=== PATIENT | female | born 1975 | race Caucasian/White ===

== ENCOUNTER 2017-07-28 20:34 | Observation (INO) ==
[2017-07-28] MEDS ORDERED: Aspirin 81 MG TAB.CHEW PO ONE (20:56)
[2017-07-28] MEDS ORDERED: Ipratropium/Albuterol Neb 3 ML IH ONE ×2 (20:58→22:12)
[2017-07-28 21:29] LABS: Prothrombin Time 10.7 Seconds (9.4-12.1)
[2017-07-28 21:32] LABS: Activated Partial Thrombo Time 27.2 Seconds (26.0-36.0); Basophils % 0.3 %; Eosinophils % 0.1 %; Hematocrit 40.7 % (35.3-44.9); Hemoglobin 14.1 g/dL (11.5-15.4); Immature Granulocytes % 1.4 % (0-4); Lymphocytes # 2.6 K/mcL (0.6-4.6); Lymphocytes % 25.5 %; Mean Corpuscular HGB Conc 34.6 g/dL (31.6-35.5); Mean Corpuscular Hemoglobin 30.5 pg (28.0-33.3); Mean Corpuscular Volume 88.1 fL (83.0-100.0); Mean Platelet Volume 9.4 fL (9.4-12.4); Monocytes # 0.6 K/mcL (0.0-1.3); Monocytes % 5.4 %; Platelet Count 202 K/mcL (140-400); Red Blood Count 4.62 M/mcL (3.82-4.97); Red Cell Distribution Width 13.4 % (11.5-14.5); Segmented Neutrophils % 67.3 %
[2017-07-28 21:37] LABS: Bilirubin,Urine Negative (Negative); Blood,Urine Small (Negative); Clarity,Urine Clear (Clear); Color,Urine Yellow (Yellow); Glucose,Urine (UA) Normal (Normal); Ketones,Urine Negative (Negative); Leukocyte Esterase,Urine Negative (Negative); Nitrite,Urine Negative (Negative); Protein,Urine Negative (Neg-Trace); Specific Gravity,Urine 1.013 (1.010-1.025); Urobilinogen,Urine Normal (Normal)
[2017-07-28 21:38] LABS: Bacteria,Urine None Seen per hpf (None-Few); Hyaline Casts,Urine None Seen per lpf (None-Few); Squamous Epithelial Cell,Urine Moderate per lpf (None-Few); WBC,Urine 0-3 per hpf (0-3)
[2017-07-28 21:40] LABS: Alanine Aminotransferase 29 Units/L (0-55); Alkaline Phosphatase 89 Units/L (38-126); Aspartate Amino Transferase 23 Units/L (5-34); BUN/Creatinine Ratio 22 (6-26); Bilirubin,Direct 0.1 mg/dL (0.0-0.5); Bilirubin,Indirect 0.1 mg/dL (0.0-1.2); Bilirubin,Total 0.2 mg/dL (0.2-1.2); Blood Urea Nitrogen 19 mg/dL (7-20); Calcium 9.6 mg/dL (8.6-10.8); Carbon Dioxide 23 mEq/L (19-29); Chloride 105 mEq/L (98-109); Glucose 97 mg/dL (70-99); Lipase 66 Units/L (8-78); Osmolality,Calculated 288 (280-300); Potassium 4.6 mEq/L (3.5-4.5); Sodium 138 mEq/L (136-145); eGFR For African Americans > 60 (> 60); eGFR For Non-African Americans > 60 (> 60)
[2017-07-28] MEDS ORDERED: Nitroglycerin 0.4 MG TAB.SUBL SL PRN (21:54)
[2017-07-28] MEDS ORDERED: methylPREDNISolone 125 MG/2 ML VIAL IVP ONE (21:54)
[2017-07-28] MEDS ORDERED: 0.9 % Sodium Chloride 1,000 ML IVC ONE ×2 (21:55→22:53)
[2017-07-28] MEDS ORDERED: predniSONE 20 MG TABLET PO ONE (22:11)
--- NOTE | 2017-07-28 22:11 | Emergency Department Note ---
Disposition Clinical Impression: Bronchitis, COPD exacerbation Acute bronchitis Qualifiers: Bronchitis organism: unspecified organism Qualified Code(s): J20.9 - Acute bronchitis, unspecified Chest pain Qualifiers: Chest pain type: precordial pain Qualified Code(s): R07.2 - Precordial pain Disposition: Admitted As Inpatient Condition: Good Time of Disposition: 23:21 General Adult HPI - General Chief complaint: ED Upper Respiratory Infection Stated complaint: cough, chest pain,abdominal pain Time Seen by Provider: 07/28/17 20:42 Source: patient Mode of arrival: ambulatory Limitations: no limitations Nursing Notes Reviewed: Yes Vital Signs Reviewed: Yes - History of Present Illness HPI Narrative: 42-year-old female past medical history COPD, pancreatitis, recent diagnosis of bronchitis with treatment of doxycycline presents to the emergency department with chief complaint of worsening chest tightness over the last few days. Patient states that it started getting really bad last night and so therefore she decided to show up to the emergency department today. Patient states that she has never had sinusitis before. Pain Scale: 7 - Related Data Home Medications Medication Instructions Recorded Confirmed Albuterol Sulfate [Proair Hfa] 2 puff IH Q4H PRN 11/23/16 07/29/17 EPINEPHrine [Epipen] 0.3 mg IM ONCE PRN 11/23/16 07/29/17 LORazepam [Ativan] 0.5 mg PO BID PRN 11/23/16 07/29/17 Linaclotide [Linzess] 290 mcg PO DAILY 11/23/16 07/29/17 Budesonide/Formoterol 160/4.5 2 puff IH BIDR 07/29/17 07/29/17 [Symbicort 160/4.5] Doxycycline Hyclate [Doxycycline 100 mg PO Q12H 07/29/17 07/29/17 Hyclate] Previous Rx's Medication Instructions Recorded Promethazine [Phenergan] 25 mg PO Q6HR #14 tablet 11/27/16 Amoxicillin/Clavulanate [Augmentin] 875 mg PO BIDWM #12 tablet 07/29/17 Ipratropium/Albuterol Neb [Duoneb] 3 ml IH Q6HR 30 Days vial.neb 07/29/17 predniSONE [PredniSONE] 40 mg PO DAILY 20 Days tablet 07/29/17 Allergies Allergy/AdvReac Type Severity Reaction Status Date / Time acetaminophen [From Vicodin] Allergy Hives Verified 07/28/17 20:38 amylase [From Pancreaze] Allergy Hives Verified 07/28/17 20:38 hydrocodone [From Vicodin] Allergy Hives Verified 07/28/17 20:38 lipase [From Pancreaze] Allergy Hives Verified 07/28/17 20:38 nitrofurantoin Allergy Anaphylaxis Verified 07/28/17 20:38 [From Macrodantin] protease [From Pancreaze] Allergy Hives Verified 07/28/17 20:38 All systems ED: reviewed and negative except as stated. Review of Systems: As Per HPI Constitutional: Reports: fever, chills Cardiovascular: Reports: chest pain. Denies: palpitations Respiratory: Reports: cough, dyspnea. Denies: hemoptysis Gastrointestinal: Denies: nausea, vomiting Genitourinary: Denies: urgency Musculoskeletal: Reports: back pain. Denies: neck pain Integumentary: Denies: rash Neurological: Denies: headache Psychiatric: Reports: anxiety Past Medical History - Past Medical History Medical history: Reports: asthma, COPD, other Surgical history: Reports: cholecystectomy, orthopedic, other, CAM/BSO Psychiatric history: Reports: anxiety ABSTRACT SEARCHER history: Reports: no ABSTRACT SEARCHER history - Social History Smoking Status: Current every day smoker Smokeless Tobacco Status: No Alcohol use: Reports: none Drug use: Reports: none Physical Exam General: Thin female appearing uncomfortable, in respiratory distress, perioral cyanosis Head: autraumatic, EOMI, no conjuncitval pallor, no scleral icterus, Mouth: oral mucous membranes moist Neck: neck soft, trachea midline Chest:: Equal chest wall rise Lungs: Coarse breath sounds throughout, minimal aeration bilaterally. Heart: normal heart sounds, normal rate and rhythm, Abdomen: soft, non-tender, no rigidity, no guarding, no rebdound tenderness Lower Extremities: no pedal edema, calves non-tender Integumentary: Skin warm, dry, and intact Neuro: Alert Psych: Anxious - General General appearance: alert, in no apparent distress Course Vital Signs Temperature 98.5 F 07/28/17 20:36 Pulse Rate 78 07/28/17 20:36 Respiratory Rate 16 07/28/17 20:36 Blood Pressure 129/75 07/28/17 20:36 O2 Sat by Pulse Oximetry 96 07/28/17 20:36 Temperature 98.0 F 07/29/17 06:52 Pulse Rate 85 07/29/17 06:52 Respiratory Rate 17 07/29/17 08:15 Blood Pressure 113/76 07/29/17 06:52 O2 Sat by Pulse Oximetry 94 07/29/17 08:15 Oxygen Delivery Oxygen Delivery Nasal Cannula Medical Decision Making - [facility] Narrative Medical decision making narrative: This is a 42-year-old female with past medical history of COPD, chronic pancreatitis, complex regional pain syndrome, clot of the large intestine, and a recent diagnosis of bronchitis who presented to the emergency department with pleuritic chest pain, shortness of breath that has worsened over the last few hours. This was immediately concerned for acute coronary syndrome. Patient's initial electrocardiogram did not reveal any ST segment changes that were concerning for ischemia. Troponin was negative. Chest x-ray was negative. Patient was given 3 duo nebs and stated that her aeration was improved, however her oxygen saturation right before discharge dropped to 85% on room air. Patient was administered 3 L of oxygen via nasal cannula and her oxygen saturation improved to 93%. At this time, I did not feel comfortable sending this patient home as she does not have oxygen at home. I discussed admission with the patient and her son at bedside. They agreed with the plan. I spoke with the hospitalist on the phone and he agreed to accept this patient. Patient was hemodynamically stable and oxygen saturation was at 92% on 3 L of oxygen at time of admission to the hospital. We are giving this patient 2 grams of magnesium IV as well. Chest X-Ray 07/28/17 20:56 IMPRESSION: Negative portable chest. D/ / Arie Kumar MD / Arie Kumar MD Interpreting Provider: Arie Kumar MD Vital Signs Temperature 98.5 F 07/28/17 20:36 Pulse Rate 78 07/28/17 20:36 Respiratory Rate 16 07/28/17 20:36 Blood Pressure 129/75 07/28/17 20:36 O2 Sat by Pulse Oximetry 96 07/28/17 20:36 Temperature 98.5 F 10/21/17 20:36 Pulse Rate 78 07/28/17 20:36 Respiratory Rate 16 07/28/17 20:36 Blood Pressure 129/75 07/28/17 20:36 O2 Sat by Pulse Oximetry 96 07/28/17 20:36 Oxygen Delivery Oxygen Delivery Room Air - Medical Records Medical records reviewed: Yes I reviewed the patient's medical records. - Lab Data Lab results reviewed: Yes I reviewed the patient's lab results. Result diagrams: 07/29/17 02:50 07/29/17 02:50 Lab Results 07/28/17 07/28/17 07/28/17 Range/Units 21:17 21: 21:17 WBC 10.4 (4.3-11.1) K/mcL RBC 4.62 (3.82-4.97) M/mcL Hgb 14.1 (11.5-15.4) g/dL Hct 40.7 (35.3-44.9) % MCV 88.1 (83.0-100.0) fL MCH 30.5 (28.0-33.3) pg MCHC 34.6 (31.6-35.5) g/dL RDW 13.4 (11.5-14.5) % Plt Count 202 (140-400) K/mcL MPV 9.4 (9.4-12.4) fL Immature Gran % 1.4 (0-4) % Seg Neutrophils % 67.3 % Lymphocytes % 25.5 % Monocytes % 5.4 % Eosinophils % 0.1 % Basophils % 0.3 % Neutrophils # 7.0 (1.6-8.9) K/mcL Lymphocytes # 2.6 (0.6-4.6) K/mcL Monocytes # 0.6 (0.0-1.3) K/mcL Eosinophils # 0.0 (0.0-0.6) K/mcL Basophils # 0.0 (0.0-0.2) K/mcL PT (9.4-12.1) Seconds INR APTT (26.0-36.0) Seconds D-Dimer (0-500) ng/mLFEU Sodium 138 (136-145) mEq/L Potassium 4.6 H (3.5-4.5) mEq/L Chloride 105 (98-109) mEq/L Carbon Dioxide 23 (19-29) mEq/L BUN 19 (7-20) mg/dL Creatinine 0.86 (0.57-1.11) mg/dL Est GFR ( Amer) > 60 (> 60) Est GFR (Non-Af Amer) > 60 (> 60) BUN/Creatinine Ratio 22 (6-26) Glucose 97 (70-99) mg/dL Calculated Osmolality 288 (280-300) Calcium 9.6 (8.6-10.8) mg/dL Total Bilirubin 0.2 (0.2-1.2) mg/dL Direct Bilirubin 0.1 (0.0-0.5) mg/dL Indirect Bilirubin 0.1 (0.0-1.2) mg/dL AST 23 (5-34) Units/L ALT 29 (0-55) Units/L Alkaline Phosphatase 89 (38-126) Units/L Troponin I 0.01 (0-0.03) ng/mL Serum Total Protein 8.0 (6.0-8.3) g/dL Albumin 4.0 (3.5-5.0) g/dL Globulin 4.0 H (2.4-3.5) g/dL Albumin/Globulin Ratio 1.0 L (1.1-2.2) Lipase 66 (8-78) Units/L Urine Color (Yellow) Urine Clarity (Clear) Urine pH (5.0-8.0) pH Units Ur Specific [place] (1.010-1.025) Urine Protein (Neg-Trace) mg/dL Urine Glucose (UA) (Normal) mg/dL Urine Ketones (Negative) mg/dL Urine Blood (Negative) Urine Nitrite (Negative) Urine Bilirubin (Negative) Urine Urobilinogen (Normal) mg/dL Ur Leukocyte Esterase (Negative) Urine Microscopic RBC (0-3) per hpf Urine Microscopic WBC (0-3) per hpf Ur Squamous Epith Cells (None-Few) per lpf Urine Bacteria (None-Few) per hpf Hyaline Casts (None-Few) per lpf Ur Culture Indicated? (NO) Urine Test (Negative) 07/28/17 07/28/17 07/28/17 Range/Units 21: 21: 21:26 WBC (4.3-11.1) K/mcL RBC (3.82-4.97) M/mcL Hgb (11.5-15.4) g/dL Hct (35.3-44.9) % MCV (83.0-100.0) fL MCH (28.0-33.3) pg MCHC (31.6-35.5) g/dL RDW (11.5-14.5) % Plt Count (140-400) K/mcL MPV (9.4-12.4) fL Immature Gran % (0-4) % Seg Neutrophils % % Lymphocytes % % Monocytes % % Eosinophils % % Basophils % % Neutrophils # (1.6-8.9) K/mcL Lymphocytes # (0.6-4.6) K/mcL Monocytes # (0.0-1.3) K/mcL Eosinophils # (0.0-0.6) K/mcL Basophils # (0.0-0.2) K/mcL PT 10.7 (9.4-12.1) Seconds INR 1.0 APTT 27.2 (26.0-36.0) Seconds D-Dimer < 215 (0-500) ng/mLFEU Sodium (136-145) mEq/L Potassium (3.5-4.5) mEq/L Chloride (98-109) mEq/L Carbon Dioxide (19-29) mEq/L BUN (7-20) mg/dL Creatinine (0.57-1.11) mg/dL Est GFR ( Amer) (> 60) Est GFR (Non-Af Amer) (> 60) BUN/Creatinine Ratio (6-26) Glucose (70-99) mg/dL Calculated Osmolality (280-300) Calcium (8.6-10.8) mg/dL Total Bilirubin (0.2-1.2) mg/dL Direct Bilirubin (0.0-0.5) mg/dL Indirect Bilirubin (0.0-1.2) mg/dL AST (5-34) Units/L ALT (0-55) Units/L Alkaline Phosphatase (38-126) Units/L Troponin I (0-0.03) ng/mL Serum Total Protein (6.0-8.3) g/dL Albumin (3.5-5.0) g/dL Globulin (2.4-3.5) g/dL Albumin/Globulin Ratio (1.1-2.2) Lipase (8-78) Units/L Urine Color Yellow (Yellow) Urine Clarity Clear (Clear) Urine pH 7.0 (5.0-8.0) pH Units Ur Specific [place] 1.013 (1.010-1.025) Urine Protein Negative (Neg-Trace) mg/dL Urine Glucose (UA) Normal (Normal) mg/dL Urine Ketones Negative (Negative) mg/dL Urine Blood Small H (Negative) Urine Nitrite Negative (Negative) Urine Bilirubin Negative (Negative) Urine Urobilinogen Normal (Normal) mg/dL Ur Leukocyte Esterase Negative (Negative) Urine Microscopic RBC 5-15 H (0-3) per hpf Urine Microscopic WBC 0-3 (0-3) per hpf Ur Squamous Epith Cells Moderate H (None-Few) per lpf Urine Bacteria None Seen (None-Few) per hpf Hyaline Casts None Seen (None-Few) per lpf Ur Culture Indicated? NO (NO) Urine Test (Negative) 07/28/17 Range/Units 21:26 WBC (4.3-11.1) K/mcL RBC (3.82-4.97) M/mcL Hgb (11.5-15.4) g/dL Hct (35.3-44.9) % MCV (83.0-100.0) fL MCH (28.0-33.3) pg MCHC (31.6-35.5) g/dL RDW (11.5-14.5) % Plt Count (140-400) K/mcL MPV (9.4-12.4) fL Immature Gran % (0-4) % Seg Neutrophils % % Lymphocytes % % Monocytes % % Eosinophils % % Basophils % % Neutrophils # (1.6-8.9) K/mcL Lymphocytes # (0.6-4.6) K/mcL Monocytes # (0.0-1.3) K/mcL Eosinophils # (0.0-0.6) K/mcL Basophils # (0.0-0.2) K/mcL PT (9.4-12.1) Seconds INR APTT (26.0-36.0) Seconds D-Dimer (0-500) ng/mLFEU Sodium (136-145) mEq/L Potassium (3.5-4.5) mEq/L Chloride (98-109) mEq/L Carbon Dioxide (19-29) mEq/L BUN (7-20) mg/dL Creatinine (0.57-1.11) mg/dL Est GFR ( Amer) (> 60) Est GFR (Non-Af Amer) (> 60) BUN/Creatinine Ratio (6-26) Glucose (70-99) mg/dL Calculated Osmolality (280-300) Calcium (8.6-10.8) mg/dL Total Bilirubin (0.2-1.2) mg/dL Direct Bilirubin (0.0-0.5) mg/dL Indirect Bilirubin (0.0-1.2) mg/dL AST (5-34) Units/L ALT (0-55) Units/L Alkaline Phosphatase (38-126) Units/L Troponin I (0-0.03) ng/mL Serum Total Protein (6.0-8.3) g/dL Albumin (3.5-5.0) g/dL Globulin (2.4-3.5) g/dL Albumin/Globulin Ratio (1.1-2.2) Lipase (8-78) Units/L Urine Color (Yellow) Urine Clarity (Clear) Urine pH (5.0-8.0) pH Units Ur Specific [place] (1.010-1.025) Urine Protein (Neg-Trace) mg/dL Urine Glucose (UA) (Normal) mg/dL Urine Ketones (Negative) mg/dL Urine Blood (Negative) Urine Nitrite (Negative) Urine Bilirubin (Negative) Urine Urobilinogen (Normal) mg/dL Ur Leukocyte Esterase (Negative) Urine Microscopic RBC (0-3) per hpf Urine Microscopic WBC (0-3) per hpf Ur Squamous Epith Cells (None-Few) per lpf Urine Bacteria (None-Few) per hpf Hyaline Casts (None-Few) per lpf Ur Culture Indicated? (NO) Urine Test Negative (Negative) - Radiology Data Radiology results reviewed: Yes I reviewed the patient's radiology results. - EKG Data EKG #1 EKG attestation: Yes I reviewed and interpreted this EKG. EKG results narrative: 20:45 Ventricular rate 77 bpm, VT interval 187 ms, QRS duration 92 ms, QT 387 ms, QTC 418 segs, no waxes. Sinus rhythm with a ventricular rate of 77 bpm. There is no evidence of ischemic EKG changes Attestation Statement - Attestation Attestation: I, Bhanu Nicholson, examined this patient and my medical decision-making was reviewed with the BASIN OPERATOR/PA/Advanced Practice Nurse/Resident Physician. I agree with the documented findings, disposition and treatment plan as described except to the extent set forth below. 42-year-old female presents to emergency Department with concerns of increasing dyspnea and anxiety over the past few days. Patient states she was evaluated by her primary care provider last week, described having similar symptoms, was prescribed steroids and doxycycline. Patient is still on the doxycycline however she finished the steroids without significant improvement of her symptoms. During the course of our evaluation patient became hypoxic in the emergency department. Patient is low risk by well's criteria and has a negative d-dimer. Patient is very anxious about her chest tightness. She had a negative initial troponin and EKG does not show evidence of STEMI. Patient will be admitted to the hospital for further care and evaluation.
[2017-07-28] MEDS ORDERED: Levofloxacin 750 MG/150 ML 750 MG/150 ML BAG IVPB ONE (22:56)
[2017-07-29] MEDS ORDERED: Ondansetron 4 MG/2 ML VIAL IVP PRN (00:32)
[2017-07-29] MEDS ORDERED: Naloxone 0.4 MG/ML INJ IVP PRN (00:32)
[2017-07-29] MEDS ORDERED: Ipratropium/Albuterol Neb 3 ML IH PRN (00:39)
--- NOTE | 2017-07-29 00:48 | Internal Med History&Physical ---
Date of Encounter: 07/29/17 Time of Encounter: 00:00 Assessment and Plan (1) COPD exacerbation Current visit: Yes Status: Acute Patient has history of COPD. Increased shortness of breath caused by bronchitis. Improved after treatment with steroid and bronchodilator later. - Place patient on Levaquin, prednisone, and DuoNeb treatment - Patient has no wheezing now but still need oxygen. - May need home oxygen evaluation upon discharge (2) Chronic pancreatitis Current visit: Yes Status: Acute Lipase is not high. Condition is chronic. Patient is following GI as outpatient Qualifiers: Qualified Code(s): K86.1 - Other chronic pancreatitis (3) DVT prophylaxis Current visit: Yes Status: Acute Heparin subcutaneously (4) Chest pain Current visit: Yes Status: Acute Patient complaint of chest heaviness and mild pain, probably due to bronchitis. However, need to rule out ACS. Patient has negative d-dimer. - 2 sets of troponin already negative. Will check the 3rd troponin in a.m. - Continue cardiac monitoring. - Check echo in a.m. Qualifiers: Chest pain type: precordial pain Qualified Code(s): R07.2 - Precordial pain (5) Tobacco abuse Current visit: Yes Status: Acute Bedside smoking cessation education. Place patient on nicotine patch Internal Medicine - H&P: HPI Chief complaint: Shortness of breath Admitted From: Home Plans for Post Hospital Care: Home History of present illness: Ms. Dougherty is a 42 year old female with a history of COPD, chronic pancreatitis , presented to ER for shortness of breath and chest heaviness. Patient said she was sick since 8 days ago, was treated as bronchitis. Since 2 days ago, patient did complain of chest heaviness/mild pain, and shortness of breath. Patient said chest heaviness and pain located on the mid chest and radiated to back, worse when she lay down. Patient denies a fever. She has mild nausea but no vomiting. Patient has a chronic abdominal pain which is due to her chronic pancreatitis. She denies diarrhea or urination problems. Patient was treated with steroids and nebulizer in emergency room, her symptoms has improved after treatment. However, patient's oxygen saturation is still low at 80s in room air, and she has no home oxygen. She was admitted as COPD exacerbation. Past Med Surg Social Fam HX - Past Medical History Medical history: asthma, COPD, other Psychiatric history: anxiety - Past Surgical History Surgical History: cholecystectomy, hysterectomy, orthopedic, other, CAM/BSO - Social History Smoking Status: Current every day smoker Smokeless Tobacco Status: No Alcohol use: none Drug use: none - Family History Mother Living Status: Still Living Hx Family Cardiac Disorders: Yes (open heart, HTN) Hx Family Endocrine Disorder: Yes (DM) Maternal Grandmother Hx Family Cardiac Disorders: Yes (breat, colon, stomach) Internal Medicine - H&P: Meds Albuterol Sulfate [Proair Hfa] 2 puff IH Q4H PRN 11/23/16 [History] EPINEPHrine [Epipen] 0.3 mg IM ONCE PRN 11/23/16 [History] LORazepam [Ativan] 0.5 mg PO BID PRN 11/23/16 [History] Linaclotide [Linzess] 290 mcg PO DAILY 11/23/16 [History] Oxycodone HCl [Oxaydo] 5 mg PO Q6H PRN 11/23/16 [History] OxyCODONE Immed Rel [Roxicodone 5 MG] 5 mg PO Q6HR PRN #10 tablet 11/27/16 [Rx] Promethazine [Phenergan] 25 mg PO Q6HR #14 tablet 11/27/16 [Rx] 3 Allergy/AdvReac Type Severity Reaction Status Date / Time acetaminophen [From Vicodin] Allergy Hives Verified 07/28/17 20:38 amylase [From Pancreaze] Allergy Hives Verified 07/28/17 20:38 hydrocodone [From Vicodin] Allergy Hives Verified 07/28/17 20:38 lipase [From Pancreaze] Allergy Hives Verified 07/28/17 20:38 nitrofurantoin Allergy Anaphylaxis Verified 07/28/17 20:38 [From Macrodantin] protease [From Pancreaze] Allergy Hives Verified 07/28/17 20:38 All Systems PM: A 10-system review of systems was performed and is negative for pertinent findings except as documented above in the HPI. - Constitutional Vitals: Temp Pulse Resp BP Pulse Ox 98.0 F 83 16 122/74 98 07/29/17 00:04 07/29/17 00:04 07/29/17 00:04 07/29/17 00:04 07/29/17 00:04 General appearance: Present: A&O X 3, no acute distress, answers questions appropriately - Head Head exam: Present: atraumatic, normocephalic - Eye Eye exam: Present: PERRL, conjuntiva pink, sclera anicteric Pupils: Present: PERRL - Neck Neck exam general surgery: Present: supple, trachea midline. Absent: lymphadenopathy - Respiratory Respiratory exam: Present: CTAB. Absent: accessory muscle use, rales, rhonchi, wheezes - Cardiovascular Cardiovascular exam: Present: RRR, +S1, +S2. Absent: diastolic murmur, gallop, rubs, systolic murmur - GI/Abdominal GI/Abdominal exam: Present: normal bowel sounds, soft, tenderness (Tenderness on LUQ, without rebound or guarding), no peritoneal signs. Absent: distended - Extremities Exam Extremities exam: Present: warm, radial pulses palpable and symmetrical. Absent : calf tenderness, cyanotic, pedal edema - Neurological Exam Neurological exam: Present: CN II-XII intact, oriented X3, no focal deficits. Absent: pronater drift, facial droop, speech deficit - Skin Skin exam: Present: dry, intact Internal Med - H&P Results - Labs CBC & Chem 7: 07/28/17 21:17 07/28/17 21:17 Labs: Cardiac Enzymes 07/28/17 Range/Units 23:15 Troponin I 0.00 (0-0.03) ng/mL - EKG Data -: EKG Interpreted by Myself EKG shows normal: sinus rhythm Rate: tachycardia
[2017-07-29 04:02] LABS: Basophils % 0.3 %; Hematocrit 38.1 % (35.3-44.9); Hemoglobin 12.6 g/dL (11.5-15.4); Lymphocytes # 1.8 K/mcL (0.6-4.6); Lymphocytes % 17.8 %; Mean Corpuscular HGB Conc 33.1 g/dL (31.6-35.5); Mean Corpuscular Volume 90.7 fL (83.0-100.0); Mean Platelet Volume 10.4 fL (9.4-12.4); Monocytes # 0.3 K/mcL (0.0-1.3); Monocytes % 2.8 %; Neutrophils # 7.8 K/mcL (1.6-8.9); Platelet Count 147 K/mcL (140-400); Red Cell Distribution Width 13.4 % (11.5-14.5); Segmented Neutrophils % 78.1 %
[2017-07-29 04:19] LABS: BUN/Creatinine Ratio 20 (6-26); Blood Urea Nitrogen 15 mg/dL (7-20); Calcium 8.8 mg/dL (8.6-10.8); Carbon Dioxide 21 mEq/L (19-29); Chloride 108 mEq/L (98-109); Glucose 108 mg/dL (70-99); Magnesium 1.9 mg/dL (1.6-2.6); Osmolality,Calculated 293 (280-300); Potassium 3.9 mEq/L (3.5-4.5); Sodium 141 mEq/L (136-145); eGFR For African Americans > 60 (> 60); eGFR For Non-African Americans > 60 (> 60)
[2017-07-29] MEDS: Ipratropium/Albuterol Neb 3 ML IH SCH ×3 (05:16→16:10)
[2017-07-29] MEDS ORDERED: *HR* Heparin 5,000 UNIT/ML VIAL SQ SCH (06:00)
[2017-07-29 06:56] VITALS: BP 113/76
[2017-07-29] MEDS ORDERED: predniSONE 20 MG TABLET PO SCH (09:00)
--- NOTE | 2017-07-29 11:32 | Discharge Summary ---
Date of Encounter: 07/29/17 Time of Encounter: 11:26 - Discharge Diagnosis (1) Acute bronchitis Priority: Primary Status: Acute Comments: Acute hypoxic respiratory failure secondary to acute COPD exacerbation due to acute bacterial bronchitis Qualifiers: Bronchitis organism: unspecified organism Qualified Code(s): J20.9 - Acute bronchitis, unspecified (2) COPD exacerbation Priority: Primary Status: Acute (3) Chronic pancreatitis Priority: Secondary Status: Acute Qualifiers: Qualified Code(s): K86.1 - Other chronic pancreatitis (4) Tobacco abuse Priority: Secondary Status: Acute (5) Chest pain Priority: Secondary Status: Acute Comments: Activity related to bronchitis Qualifiers: Chest pain type: precordial pain Qualified Code(s): R07.2 - Precordial pain - Discharge Medications Prescriptions: Ipratropium/Albuterol Neb [Duoneb] 3 ml IH Q6HR 30 Days vial.neb Amoxicillin/Clavulanate [Augmentin] 875 mg PO BIDWM #12 tablet predniSONE [PredniSONE] 40 mg PO DAILY 20 Days tablet Home Medications: Albuterol Sulfate [Proair Hfa] 2 puff IH Q4H PRN 11/23/16 [History] EPINEPHrine [Epipen] 0.3 mg IM ONCE PRN 11/23/16 [History] LORazepam [Ativan] 0.5 mg PO BID PRN 11/23/16 [History] Linaclotide [Linzess] 290 mcg PO DAILY 11/23/16 [History] Oxycodone HCl [Oxaydo] 5 mg PO Q6H PRN 11/23/16 [History] OxyCODONE Immed Rel [Roxicodone 5 MG] 5 mg PO Q6HR PRN #10 tablet 11/27/16 [Rx] Promethazine [Phenergan] 25 mg PO Q6HR #14 tablet 11/27/16 [Rx] Amoxicillin/Clavulanate [Augmentin] 875 mg PO BIDWM #12 tablet 07/29/17 [Rx] Ipratropium/Albuterol Neb [Duoneb] 3 ml IH Q6HR 30 Days vial.neb 07/29/17 [Rx] predniSONE [PredniSONE] 40 mg PO DAILY 20 Days tablet 07/29/17 [Rx] Allergies/Adverse Reactions: 3 Allergy/AdvReac Type Severity Reaction Status Date / Time acetaminophen [From Vicodin] Allergy Hives Verified 07/28/17 20:38 amylase [From Pancreaze] Allergy Hives Verified 07/28/17 20:38 hydrocodone [From Vicodin] Allergy Hives Verified 07/28/17 20:38 lipase [From Pancreaze] Allergy Hives Verified 07/28/17 20:38 nitrofurantoin Allergy Anaphylaxis Verified 07/28/17 20:38 [From Macrodantin] protease [From Pancreaze] Allergy Hives Verified 07/28/17 20:38 Procedures/tests Complete & Pending: Procedures Performed prior 72 hours Category Date Time Status ECG 12 lead ECG [ECG] Routine Y 07/28/17 20:44 Completed EV echocardiogram Routine Y 07/29/17 00:39 Completed Date of admission: 07/28/17 23:12 Primary care physician: Peggy Richardson CNP - Patient Status Disposition: Home, Self-Care Condition: Good Overall status at discharge: patient is back to baseline - Discharge Instructions Follow Up With: Peggy Richardson CNP [Primary Care Provider] - Additional Instructions: Follow-up with primary care physician within the next 7 days. Complete redness and taper. Complete 6 more days of Augmentin. Follow-up with the pulmonary service within the next 4-6 weeks for pulmonary function tests. Quit smoking - Diet and Activity Activity: increase activity as tolerated Diet: low fat, low cholesterol Hospital course: Ms. Dougherty is a 42 year old female with a history of COPD not oxygen dependent, chronic pancreatitis, tobacco use, asthma, anxiety, presented to ER for shortness of breath and chest heaviness. Patient said she was sick since 8 days , was treated as bronchitis. Since 2 days prior to admission, patient did complain of chest heaviness/mild pain, and shortness of breath. She had mild nausea but no vomiting. Patient has a chronic abdominal pain which is due to her chronic pancreatitis. She denied diarrhea or urination problems. Patient was treated with steroids and nebulizer in emergency room, her symptoms has improved after treatment. However, patient's oxygen saturation is still low at 80s in room air, and she has no home oxygen. She was admitted as COPD exacerbation. Mentioned that all of her family has been dealing with bronchitis at home. Chest x-ray did not show any acute coronary pulmonary disease. She is not hypoxic anymore. Was given Levaquin and prednisone. He is stable to be discharged on the moment. Time spent discussing smoking cessation with patient: 3 to 10 minutes - Time Spent with Patient Total time spent providing and/or coordinating discharge services: Greater than 30 minutes (40 min) - Constitutional Vitals: Temp Pulse Resp BP Pulse Ox 98.0 F 85 17 113/76 94 07/29/17 06:52 07/29/17 06:52 07/29/17 08:15 07/29/17 06:52 07/29/17 08:15 General appearance: Present: A&O X 3, no acute distress, answers questions appropriately - Head Head exam: Present: atraumatic, normocephalic - Eye Eye exam: Present: PERRL, conjuntiva pink, sclera anicteric Pupils: Present: PERRL - Neck Neck exam general surgery: Present: supple, trachea midline. Absent: lymphadenopathy - Respiratory Respiratory exam: Present: decreased breath sounds, CTAB. Absent: accessory muscle use, rales, rhonchi, wheezes - Cardiovascular Cardiovascular exam: Present: RRR, +S1, +S2. Absent: diastolic murmur, gallop, rubs, systolic murmur - GI/Abdominal GI/Abdominal exam: Present: normal bowel sounds, soft, no peritoneal signs. Absent: distended, tenderness - Extremities Exam Extremities exam: Present: warm, radial pulses palpable and symmetrical. Absent : calf tenderness, cyanotic, pedal edema - Neurological Exam Neurological exam: Present: CN II-XII intact, oriented X3, no focal deficits. Absent: pronater drift, facial droop, speech deficit - Skin Skin exam: Present: dry, intact
[2017-07-29] MEDS ORDERED: Levofloxacin 750 MG/150 ML 750 MG/150 ML BAG IVPB SCH (23:00)
--- NOTE | 2017-07-30 06:43 | Electrocardiograph Report ---
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
--- NOTE | 2017-07-30 06:43 | Electrocardiograph Report ---
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
== END 2017-07-29 16:00 | disposition home or self-care (01) ==
LOC: EMEROO 20:34 → 3BNU 20:34 → SUATTDRO 23:12 → 3BNU 23:38
PROVIDERS: ADMIT Internal Medicine; ATTEND Internal Medicine

== ENCOUNTER 2017-09-17 09:18 | Inpatient (IN) ==
[2017-09-17] MEDS ORDERED: Ringers Solution, Lactated 1,000 ML IVC ONE (09:37)
[2017-09-17] MEDS ORDERED: *HR* Promethazine 25 MG/ML VIAL IVP ONE (09:37)
[2017-09-17] MEDS ORDERED: *HR* Morphine 2 MG/ML SYRINGE IVP ONE (09:37)
[2017-09-17 09:48] LABS: Bilirubin,Urine Negative (Negative); Blood,Urine Small (Negative); Clarity,Urine Clear (Clear); Color,Urine Dark Yellow (Yellow); Glucose,Urine (UA) Normal (Normal); Ketones,Urine Negative (Negative); Leukocyte Esterase,Urine Negative (Negative); Nitrite,Urine Negative (Negative); PH,Urine 6.5 pH Units (5.0-8.0); Protein,Urine Negative (Neg-Trace); Specific Gravity,Urine 1.021 (1.010-1.025); Urobilinogen,Urine Normal (Normal)
--- NOTE | 2017-09-17 09:48 | Emergency Department Note ---
Disposition Clinical Impression: Epigastric abdominal pain Disposition: Admitted As Inpatient Condition: Good Forms: ED Satisfaction Letter, Work/School Release Time of Disposition: 12:25 General Adult HPI - General Chief complaint: ED Abdominal Pain Stated complaint: abd pain Time Seen by Provider: 09/17/17 09:23 Source: patient Mode of arrival: ambulatory Limitations: no limitations Nursing Notes Reviewed: Yes Vital Signs Reviewed: Yes - History of Present Illness HPI Narrative: 42-year-old female presented to the emergency department complaining of epigastric pain. Patient has a history of chronic pancreatitis and COPD. On Sunday she saw her sole leveler Dr. Lin who sent her to the emergency department with concern for acute pancreatitis. When she was here she was treated for nausea and pain control. She was given non-disassociative dose ketamine. She stated she was feeling better and was discharged home. She states since Sunday morning she has been having increasing epigastric pain along with abdominal distention. She has been unable to hold any food or liquids down. She has been trying morphine and Phenergan at home with little relief. She is coming back in feeling that she is dehydrated and having more severe pain. She denies any fevers, chest pain or changes in her shortness of breath. She denies any urinary symptoms. Pain Scale: 9 - Related Data Home Medications Medication Instructions Recorded Confirmed Albuterol Sulfate [Proair Hfa] 2 puff IH Q4H PRN 11/23/16 09/17/17 EPINEPHrine [Epipen] 0.3 mg IM ONCE PRN 11/23/16 09/17/17 LORazepam [Ativan] 0.5 mg PO BID PRN 11/23/16 09/17/17 Linaclotide [Linzess] 290 mcg PO DAILY 11/23/16 09/17/17 Previous Rx's Medication Instructions Recorded Ipratropium/Albuterol Neb [Duoneb] 3 ml IH Q6HR 30 Days vial.neb 07/29/17 Morphine Immed Rel [Morphine 15 mg PO Q4HR PRN #15 tab 09/13/17 Sulfate] Allergies Allergy/AdvReac Type Severity Reaction Status Date / Time acetaminophen [From Vicodin] Allergy Hives Verified 09/13/17 16:08 amylase [From Pancreaze] Allergy Hives Verified 09/13/17 16:08 hydrocodone [From Vicodin] Allergy Hives Verified 09/13/17 16:08 lipase [From Pancreaze] Allergy Hives Verified 09/13/17 16:08 nitrofurantoin Allergy Anaphylaxis Verified 09/13/17 16:08 [From Macrodantin] protease [From Pancreaze] Allergy Hives Verified 09/13/17 16:08 All systems ED: reviewed and negative except as stated. Constitutional: Denies: fever, chills Eyes: Reports: as per HPI ENT ED: Reports: as per HPI Cardiovascular: Denies: chest pain, palpitations, dyspnea on exertion Respiratory: Denies: cough, wheezes Gastrointestinal: Reports: abdominal pain, nausea, vomiting. Denies: hematemesis, melena, hematochezia Genitourinary: Reports: as per HPI Musculoskeletal: Reports: as per HPI Integumentary: Denies: rash, abrasion Neurological: Reports: as per HPI Psychiatric: Reports: as per HPI Endocrine: Reports: as per HPI Hematological/Lymphatic: Reports: as per HPI Allergic/Immunologic: Reports: as per HPI Past Medical History - Past Medical History Attestation: Yes The following information was validated with the patient. Medical history: Reports: asthma, COPD, other Surgical history: Reports: cholecystectomy, orthopedic, other, CAM/BSO Psychiatric history: Reports: anxiety LEAD RIDER history: Reports: no LEAD RIDER history - Social History Smoking Status: Current every day smoker Smokeless Tobacco Status: No Alcohol use: Reports: none Drug use: Reports: none Physical Exam - General Limitations: no limitations General appearance: alert, in no apparent distress - Head Head exam: atraumatic, normocephalic, normal inspection - Eye Eye exam: Present: normal appearance. Absent: scleral icterus, conjunctival injection - ENT ENT exam: mucous membranes dry - Chest Chest inspection: Present: normal inspection, symmetric chest wall rise. Absent : tenderness, rash - Respiratory Respiratory exam: Present: normal lung sounds bilaterally. Absent: respiratory distress, wheezes - Cardiovascular Cardiovascular exam: Present: normal rhythm, tachycardia, normal heart sounds - Abdominal Exam Abdominal exam: Present: soft, tenderness, distention, normal bowel sounds. Absent: guarding, rebound, rigidity, organomegaly, Miguel's sign, Rovsing's sign , tenderness at McBurney's Point Abdominal tenderness: Present: epigastrium, moderate - Extremities Exam Extremities exam: Present: normal inspection, full ROM - Back Exam Back exam: Present: normal inspection. Absent: CVA tenderness (R), CVA tenderness (L) - Neurological Exam Neurological exam: Present: alert, oriented X3 - Psychiatric Psychiatric exam: Present: normal affect, normal mood - Skin Skin exam: Present: warm, intact Course Course Narrative: 42-year-old female presenting to the emergency department complaining of epigastric pain. Patient was seen on Sunday with concern for aggravation of her chronic pancreatitis. Patient has failed outpatient management. We will provide the patient when nausea and pain control this time. We will obtain basic lab work including CBC, BMP and lipase. We will provide her with fluid repletion with lactated Ringer's. Patient is alert and oriented 3 in the room at this time. She is tachycardic with a heart rate of 110. All other vitals within normal limits. Disposition was likely will be admission. Patient agrees to this plan. - Reevaluation(s) Reevaluation #1: After multiple failed attempts at a peripheral IV in midline was placed. Patient has received subcutaneous morphine for pain control. All lab work resulted was within normal limits. We will admit the patient at this time for pain control. She is alert and oriented 3 in the room stable vital signs at this time. She agrees with this plan. The hospitalist Dr. Burgos agrees to accept the patient at this time. Time: 12:24 Vital Signs Temperature 98.4 F 09/17/17 09:19 Pulse Rate 110 09/17/17 09:19 Respiratory Rate 18 09/17/17 09:19 Blood Pressure 123/80 09/17/17 09:19 O2 Sat by Pulse Oximetry 96 09/17/17 09:19 Temperature 98.4 F 09/17/17 09:19 Pulse Rate 110 09/17/17 09:19 Respiratory Rate 18 09/17/17 09:19 Blood Pressure 123/80 09/17/17 09:19 O2 Sat by Pulse Oximetry 96 09/17/17 09:19 Oxygen Delivery Oxygen Delivery Room Air Medical Decision Making - Lab Data Result diagrams: 09/17/17 10:28 09/17/17 11:11 Lab Results 09/17/17 09/17/17 09/17/17 Range/Units 09:38 10:28 10:28 WBC 9.3 (4.3-11.1) K/mcL RBC 4.47 (3.82-4.97) M/mcL Hgb 13.6 (11.5-15.4) g/dL Hct 39.7 (35.3-44.9) % MCV 88.8 (83.0-100.0) fL MCH 30.4 (28.0-33.3) pg MCHC 34.3 (31.6-35.5) g/dL RDW 13.2 (11.5-14.5) % Plt Count 182 (140-400) K/mcL MPV 10.1 (9.4-12.4) fL Seg Neutrophils % 70.0 % Lymphocytes % 26.0 % Monocytes % 4.0 % Neutrophils # 6.5 (1.6-8.9) K/mcL Lymphocytes # 2.4 (0.6-4.6) K/mcL Monocytes # 0.4 (0.0-1.3) K/mcL Reactive Lymphocytes (Not Present) Platelet Estimate Normal (Normal) Large Platelets (Not Present) Sodium (136-145) mEq/L Potassium (3.5-4.5) mEq/L Chloride (98-109) mEq/L Carbon Dioxide (19-29) mEq/L BUN (7-20) mg/dL Creatinine (0.57-1.11) mg/dL Est GFR ( Amer) (> 60) Est GFR (Non-Af Amer) (> 60) BUN/Creatinine Ratio (6-26) Glucose (70-99) mg/dL Calculated Osmolality (280-300) Calcium (8.6-10.8) mg/dL Lipase (8-78) Units/L Urine Color Dark Yellow (Yellow) Urine Clarity Clear (Clear) Urine pH 6.5 (5.0-8.0) pH Units Ur Specific [place] 1.021 (1.010-1.025) Urine Protein Negative (Neg-Trace) mg/dL Urine Glucose (UA) Normal (Normal) mg/dL Urine Ketones Negative (Negative) mg/dL Urine Blood Small H (Negative) Urine Nitrite Negative (Negative) Urine Bilirubin Negative (Negative) Urine Urobilinogen Normal (Normal) mg/dL Ur Leukocyte Esterase Negative (Negative) Urine Microscopic RBC 0-3 (0-3) per hpf Urine Microscopic WBC 0-3 (0-3) per hpf Ur Squamous Epith Cells Many H (None-Few) per lpf Urine Bacteria Few (None-Few) per hpf Hyaline Casts None Seen (None-Few) per lpf Granular Casts Few H (None Seen) per lpf Ur Culture Indicated? NO (NO) Specimen Rejected Hemolyzed 09/17/17 Range/Units 11:11 WBC (4.3-11.1) K/mcL RBC (3.82-4.97) M/mcL Hgb (11.5-15.4) g/dL Hct (35.3-44.9) % MCV (83.0-100.0) fL MCH (28.0-33.3) pg MCHC (31.6-35.5) g/dL RDW (11.5-14.5) % Plt Count (140-400) K/mcL MPV (9.4-12.4) fL Seg Neutrophils % % Lymphocytes % % Monocytes % % Neutrophils # (1.6-8.9) K/mcL Lymphocytes # (0.6-4.6) K/mcL Monocytes # (0.0-1.3) K/mcL Reactive Lymphocytes (Not Present) Platelet Estimate (Normal) Large Platelets (Not Present) Sodium 136 (136-145) mEq/L Potassium 4.2 (3.5-4.5) mEq/L Chloride 102 (98-109) mEq/L Carbon Dioxide 25 (19-29) mEq/L BUN 9 (7-20) mg/dL Creatinine 0.59 (0.57-1.11) mg/dL Est GFR ( Amer) > 60 (> 60) Est GFR (Non-Af Amer) > 60 (> 60) BUN/Creatinine Ratio 15 (6-26) Glucose 96 (70-99) mg/dL Calculated Osmolality 281 (280-300) Calcium 9.2 (8.6-10.8) mg/dL Lipase 62 (8-78) Units/L Urine Color (Yellow) Urine Clarity (Clear) Urine pH (5.0-8.0) pH Units Ur Specific [place] (1.010-1.025) Urine Protein (Neg-Trace) mg/dL Urine Glucose (UA) (Normal) mg/dL Urine Ketones (Negative) mg/dL Urine Blood (Negative) Urine Nitrite (Negative) Urine Bilirubin (Negative) Urine Urobilinogen (Normal) mg/dL Ur Leukocyte Esterase (Negative) Urine Microscopic RBC (0-3) per hpf Urine Microscopic WBC (0-3) per hpf Ur Squamous Epith Cells (None-Few) per lpf Urine Bacteria (None-Few) per hpf Hyaline Casts (None-Few) per lpf Granular Casts (None Seen) per lpf Ur Culture Indicated? (NO) Specimen Rejected
[2017-09-17 09:51] LABS: Hyaline Casts,Urine None Seen per lpf (None-Few); RBC,Urine 0-3 per hpf (0-3); Squamous Epithelial Cell,Urine Many per lpf (None-Few); WBC,Urine 0-3 per hpf (0-3)
--- NOTE | 2017-09-17 09:59 | Emergency Department Note ---
START Narrative - START START: I examined this patient and my medical decision-making was reviewed with the WAREHOUSE FOREMAN/PA/Advanced Practice Nurse/Resident Physician. I agree with the documented findings, disposition and treatment plan as described except to the extent set forth below. ED attending: Patient's emergency medicine resident Dr. Debby Hollingsworth. Please see copy of this note for H&P evaluation and management and ED disposition. We both had independent [id number] time in contact with this patient. Briefly: A 42-year-old female seen earlier last week at [address] [place] [address] for a flare of pancreatitis by Dr. alvarez. Please see copy of his details of that encounter. Patient returns with persistent pain and unable to keep down any of her oral antiemetics and analgesics at home. She writes dehydrated with very dark colored urine her abdomen is surgically benign she is afebrile but tachycardic at 110 at rest. With dry oral mucosa. Patient will get lactated ringer IV rehydration and analgesics and antiemetics parenterally and a follow-up lipase BMP and CBC. Admission is anticipated. Disposition pending
[2017-09-17 10:02] LABS: Bacteria,Urine Few per hpf (None-Few); Granular Casts,Urine Few per lpf (None Seen)
[2017-09-17] MEDS ORDERED: *HR* Morphine 2 MG/ML SYRINGE SQ ONE (10:34)
[2017-09-17 10:45] LABS: Hematocrit 39.7 % (35.3-44.9); Hemoglobin 13.6 g/dL (11.5-15.4); Mean Corpuscular HGB Conc 34.3 g/dL (31.6-35.5); Mean Corpuscular Hemoglobin 30.4 pg (28.0-33.3); Mean Corpuscular Volume 88.8 fL (83.0-100.0); Mean Platelet Volume 10.1 fL (9.4-12.4); Platelet Count 182 K/mcL (140-400); Red Blood Count 4.47 M/mcL (3.82-4.97); Red Cell Distribution Width 13.2 % (11.5-14.5)
[2017-09-17] MEDS ORDERED: Ondansetron ODT 4 MG TAB.RAPDIS SL ONE (11:03)
[2017-09-17 11:16] LABS: Lymphocytes # 2.4 K/mcL (0.6-4.6); Monocytes # 0.4 K/mcL (0.0-1.3); Neutrophils # 6.5 K/mcL (1.6-8.9); Platelet Estimate Normal (Normal)
[2017-09-17 12:12] LABS: BUN/Creatinine Ratio 15 (6-26); Blood Urea Nitrogen 9 mg/dL (7-20); Calcium 9.2 mg/dL (8.6-10.8); Carbon Dioxide 25 mEq/L (19-29); Chloride 102 mEq/L (98-109); Glucose 96 mg/dL (70-99); Lipase 62 Units/L (8-78); Osmolality,Calculated 281 (280-300); Potassium 4.2 mEq/L (3.5-4.5); Sodium 136 mEq/L (136-145); eGFR For African Americans > 60 (> 60); eGFR For Non-African Americans > 60 (> 60)
[2017-09-17] MEDS ORDERED: Ketamine *HR* 500 MG/10 ML MDV IV ONE (13:05)
[2017-09-17] MEDS ORDERED: SODIUM CHLORIDE 0.9% IVC ONE (13:30)
[2017-09-17] MEDS ORDERED: KETAMINE IVC ONE (13:30)
[2017-09-17] MEDS ORDERED: Ondansetron 4 MG/2 ML VIAL IVP PRN (13:40)
[2017-09-17] MEDS ORDERED: Naloxone 0.4 MG/ML INJ IVP PRN (13:40)
[2017-09-17] MEDS: 0.9 % Sodium Chloride 1,000 ML IVC SCH ×2 (14:20→23:00)
[2017-09-17] MEDS: *HR* LORazepam 0.5 MG TABLET PO PRN (14:20)
[2017-09-17] MEDS: Pantoprazole 40 MG VIAL IVP SCH (14:20)
--- NOTE | 2017-09-17 14:53 | Internal Med History&Physical ---
Date of Encounter: 09/17/17 Time of Encounter: 12:00 Assessment and Plan (1) Acute recurrent pancreatitis Current visit: Yes Status: Acute Acute recurrent pancreatitis. Pt. reports chronic pancreatitis for the past 7 years and is concerned w/worst pain ever this time and possible blockage. Pt. is followed by Dr. Lin who saw her in office on Sunday and referred pt. to ED. Pt. received ketamine in ED and felt better and went home. Pain worsened significantly over weekend w/N/V/D/Fever/Chills. Pt. unable to eat or drink. States home pain medications not working. GI consult to Dr. Lin ordered. Pain management consult ordered and discussed w/Dr. Naidu. Nutrition consult ordered to provide dietary recommendations. NPO for now. Monitor I&O and daily weight. IV 0.9 NS @125 mL/HR. [employer]ELOPER pump w/dilaudid .4Q10 minutes (no continuous infusion) and 9 mg lockout. 0.5 IVP dilaudid Q6HR PRN for breakthrough pain not reduced by [employer]ELOPER pump. Pt. discussed w/Dr. Burgos who agrees w/plan of care. Pt. is at high risk for further morbidity and uncontrolled pain d/t current sx, hx, and risk factors. Observation. (2) Abdominal pain Current visit: Yes Status: Acute Acutely worsening abdominal pain that began two weeks ago and worsened over the past three days. Epigastric location. Pt. reports hx of recurrent pancreatitis. Pt. unable to keep solids or liquids down. Pt. reports current home pain medication is not working effectively. Pain management consult ordered and discussed w/recommendation to start dilaudid [employer] DEVELOPER pump @.4Q10 minutes w/9 mg lockout. 0.5 IVP Q6 PRN for breakthrough pain not controlled by the [employer]OPER pump. Dr. Naidu to see pt. tomorrow and I appreciate the consult. Dr. Lin sees pt. and GI consult ordered. Monitor pt. for pain. Qualifiers: Abdominal location: epigastric Qualified Code(s): R10.13 - Epigastric pain (3) Nausea & vomiting Current visit: Yes Status: Acute Acute nausea and vomiting over the past two days. Pt. reports being unable to keep anything down. NPO for now. Monitor I&O and daily weight. IVP Zofran 4 mg Q6 PRN for nausea. IVP Protonix 40 mg daily. Qualifiers: Vomiting type: unspecified Vomiting Intractability: non-intractable Qualified Code(s): R11.2 - Nausea with vomiting, unspecified (4) Hematochezia Current visit: Yes Status: Acute Acute hematochezia. Pt. reports bright red blood in toilet bowl w/diarrhea yesterday. CT of the abdomen/pelvis today shows diverticulosis with no evidence of diverticulitis presently. Fecal Hemoccult ordered. Bilateral SCDs on LEs for DVT prophylaxis. H/H currently WNL. Monitor pt. for signs of bleeding. (5) Tobacco abuse Current visit: Yes Status: Chronic Hx of chronic tobacco abuse. Pt. reports smoking 1 PPD w/no current interest in quitting. 14 mg nicotine patch daily ordered. (6) COPD (chronic obstructive pulmonary disease) Current visit: Yes Status: Chronic Hx of chronic COPD. Stable. Supplemental O2 and SpO2 monitoring PRN. Qualifiers: COPD type: emphysema Qualified Code(s): J43.9 - Emphysema, unspecified (7) Asthma Current visit: Yes Status: Chronic Hx of chronic, mild intermittent asthma. Continue pts. inhalers. Qualifiers: Asthma severity: mild Asthma persistence: intermittent Asthma complication type: uncomplicated Qualified Code(s): J45.20 - Mild intermittent asthma, uncomplicated (8) DVT prophylaxis Current visit: Yes Status: Acute Bilateral SCDs on LEs d/t pts. report of bright blood in stool. Monitor pt. for signs of bleeding. Internal Medicine - H&P: HPI Chief complaint: Abdominal pain Admitted From: Emergency Dept Plans for Post Hospital Care: Home History of present illness: Ms. Dougherty is a 42 year old female with medical hx of asthma, COPD, and chronic pancreatitis over the past 7 years presents from ED with chief complaint of abdominal pain which she says began 2 weeks ago and became much worse on Sunday. Patient came to [facility] ED on Sunday w/same sx and was given ketamine and decided to go home after feeling better. Pain became much worse yesterday w/nausea, vomiting, diarrhea, fever, chills, and weakness. Reports being unable to keep solids or liquids down and states that her diarrhea has had bright red blood present. Also states that pain is not managed well. Pt. denies recent illness, changes in vision, chest pain, palpitations, SOB, constipation, dizziness, lightheadedness, numbness, tingling, pre-syncope, and syncope. Past Med Surg Social Fam HX - Past Medical History Source: patient, old records reviewed, obtained from family Medical history: asthma, COPD, other Psychiatric history: anxiety - Past Surgical History Surgical History: cholecystectomy, orthopedic, other, CAM/BSO - Social History Smoking Status: Current every day smoker Packs per day: 1 PPD Smokeless Tobacco Status: No Alcohol use: none Drug use: none Current living situation: Home, With Family Activity Level: Independent ambulation Recent Out of Country Travel Within the Last 8 Weeks: No Exposure or Possible Exposure to Illness During Travel: No - Family History Mother Race: Family Member Ethnicity: Non- Living Status: Still Living Hx Family Cardiac Disorders: Yes (open heart, HTN) Hx Family Endocrine Disorder: Yes (DM) Maternal Grandmother Race: Family Member Ethnicity: Non- Living Status: Hx Family Cancer: Yes (Breast, colon, stomach) Internal Medicine - H&P: Meds Albuterol Sulfate [Proair Hfa] 2 puff IH Q4H PRN 11/23/16 [History] EPINEPHrine [Epipen] 0.3 mg IM ONCE PRN 11/23/16 [History] LORazepam [Ativan] 0.5 mg PO BID PRN 11/23/16 [History] Linaclotide [Linzess] 290 mcg PO DAILY 11/23/16 [History] Ipratropium/Albuterol Neb [Duoneb] 3 ml IH Q6HR 30 Days vial.neb 07/29/17 [Rx] Morphine Immed Rel [Morphine Sulfate] 15 mg PO Q4HR PRN #15 tab 09/13/17 [Rx] 3 Allergy/AdvReac Type Severity Reaction Status Date / Time acetaminophen [From Vicodin] Allergy Hives Verified 09/13/17 16:08 amylase [From Pancreaze] Allergy Hives Verified 09/13/17 16:08 hydrocodone [From Vicodin] Allergy Hives Verified 09/13/17 16:08 lipase [From Pancreaze] Allergy Hives Verified 09/13/17 16:08 nitrofurantoin Allergy Anaphylaxis Verified 09/13/17 16:08 [From Macrodantin] protease [From Pancreaze] Allergy Hives Verified 09/13/17 16:08 All Systems PM: A 10-system review of systems was performed and is negative for pertinent findings except as documented above in the HPI. - Constitutional Constitutional: as per HPI, chills, fever(s), weakness, no night sweats - EENT Eyes: no change in vision, no discharge, no pain, no photophobia Ears: no ear discharge, no ear pain, no tinnitus Nose, mouth and throat: no dysphagia, no nasal discharge, no neck pain, no sore throat - Breasts Breasts: as per HPI - Cardiovascular Cardiovascular ROS IM: as per HPI, no chest pain, no diaphoresis, no dyspnea, no lightheadedness, no palpitations, no syncope - Respiratory Respiratory: no cough, no dyspnea, no wheezing, no excessive phlegm production - Gastrointestinal Gastrointestinal: as per HPI, abdominal pain, nausea, vomiting - Genitourinary Genitourinary: no change in urinary stream, no dysuria, no flank pain, no hematuria Menstruation: as per HPI - Musculoskeletal Musculoskeletal ROS IM: no numbness, no tingling - Integumentary Integumentary IM: no rash, no unusual bruising - Neurological Neurological ROS: no confusion, no convulsions, no focal weakness, no numbness, no tingling, no tremor(s) - Psychiatric Psychiatric: as per HPI - Endocrine Endocrine IM: as per HPI - Hematologic/Lymphatic Hematologic/Lymphatic: easy bleeding (Pt. reports bright red blood in stool), no easy bruising - Allergic/Immunologic Allergic/Immunologic: as per HPI - Constitutional Vitals: Temp Pulse Resp BP Pulse Ox 97.6 F 79 16 102/69 93 09/17/17 13:52 09/17/17 13:52 09/17/17 13:52 09/17/17 13:52 09/17/17 13:52 General appearance: Present: cooperative, A&O X 3, pleasant, severe distress ( Abdominal pain), answers questions appropriately - Head Head exam: Present: atraumatic, normocephalic - Eye Eye exam: Present: PERRL, conjuntiva pink, sclera anicteric Pupils: Present: PERRL - ENT ENT exam: Present: normal exam, normal external ear exam - Neck Neck exam general surgery: Present: normal inspection, supple, trachea midline. Absent: lymphadenopathy - Respiratory Respiratory exam: Present: CTAB. Absent: accessory muscle use, rales, rhonchi, wheezes - Cardiovascular Cardiovascular exam: Present: tachycardia - GI/Abdominal GI/Abdominal exam: Present: guarding, normal bowel sounds, soft, tenderness, no peritoneal signs. Absent: distended - Rectal Rectal exam: Present: deferred - Additional comments: exam deferred. - Extremities Exam Extremities exam: Present: warm, radial pulses palpable and symmetrical. Absent : calf tenderness, cyanotic, pedal edema - Back Exam Back exam: Present: normal inspection - Neurological Exam Neurological exam: Present: CN II-XII intact, oriented X3, no focal deficits. Absent: pronater drift, facial droop, speech deficit - Psychiatric Psychiatric exam: Present: anxious - Skin Skin exam: Present: dry, intact Internal Med - H&P Results - Labs CBC & Chem 7: 09/17/17 10:28 09/17/17 11:11 - Diagnostic Studies CT scan - abdomen Additional comments: Impressions Abdomen/Pelvis CT 09/17/17 14:02 IMPRESSION: 1. No CT evidence for acute intra-abdominal process. Specifically, normal CT appearance of the pancreas. 2. Stable appearance of a radiopaque foreign body in the subcutaneous soft tissues overlying the right back musculature. 3. Diverticulosis without CT evidence of diverticulitis. D/ / Liborio He / Liborio He Interpreting Provider: Lbiorio He
[2017-09-17] MEDS: *HR* HYDROmorphone 20 MG/20 ML PCA IVC PRN (15:09)
[2017-09-17] MEDS ORDERED: *HR* HYDROmorphone (PF) 1 MG/ML SYRINGE IVP PRN (15:33)
[2017-09-17] MEDS: Ipratropium/Albuterol Neb 3 ML IH SCH ×2 (16:13→21:27)
[2017-09-17] MEDS: Nicotine 14 MG PATCH.TD24 TD SCH (16:24)
--- NOTE | 2017-09-17 20:01 | Event Note ---
Date of Encounter: 09/17/17 Time of Encounter: 18:00 Discussed with JESUS and agree with assessment and plan. Pain management consulted for assistance
[2017-09-17] MEDS: *HR* Promethazine 25 MG/ML VIAL IVP PRN (20:05)
[2017-09-18] MEDS: *HR* Promethazine 25 MG/ML VIAL IVP PRN ×6 (00:15→22:09)
[2017-09-18 03:12] LABS: Basophils % 0.3 %; Eosinophils % 0.6 %; Hematocrit 35.4 % (35.3-44.9); Hemoglobin 11.9 g/dL (11.5-15.4); Immature Granulocytes % 0.3 % (0-4); Lymphocytes # 1.9 K/mcL (0.6-4.6); Lymphocytes % 26.1 %; Mean Corpuscular HGB Conc 33.6 g/dL (31.6-35.5); Mean Corpuscular Hemoglobin 30.5 pg (28.0-33.3); Mean Corpuscular Volume 90.8 fL (83.0-100.0); Mean Platelet Volume 9.4 fL (9.4-12.4); Monocytes # 0.5 K/mcL (0.0-1.3); Monocytes % 6.9 %; Neutrophils # 4.8 K/mcL (1.6-8.9); Platelet Count 158 K/mcL (140-400); Red Cell Distribution Width 13.3 % (11.5-14.5); Segmented Neutrophils % 65.8 %
[2017-09-18] MEDS: Ipratropium/Albuterol Neb 3 ML IH SCH ×4 (03:57→22:30)
[2017-09-18 04:20] LABS: Alanine Aminotransferase 505 Units/L (0-55); Albumin/Globulin Ratio 0.9 (1.1-2.2); Alkaline Phosphatase 196 Units/L (38-126); Aspartate Amino Transferase 377 Units/L (5-34); BUN/Creatinine Ratio 13 (6-26); Bilirubin,Total 0.5 mg/dL (0.2-1.2); Blood Urea Nitrogen 7 mg/dL (7-20); Calcium 8.1 mg/dL (8.6-10.8); Carbon Dioxide 24 mEq/L (19-29); Chloride 105 mEq/L (98-109); Chol/HDL Ratio 3.2 (0-4.9); Cholesterol 150 mg/dL (< 200); Globulin 3.5 g/dL (2.4-3.5); Glucose 86 mg/dL (70-99); HDL Cholesterol 47 mg/dL (40-59); LDL Cholesterol,Calculated 93 mg/dL (0-99); Magnesium 1.4 mg/dL (1.6-2.6); Osmolality,Calculated 281 (280-300); Sodium 137 mEq/L (136-145); Total Protein 6.5 g/dL (6.0-8.3); Triglycerides 51 mg/dL (< 150); eGFR For African Americans > 60 (> 60); eGFR For Non-African Americans > 60 (> 60)
[2017-09-18 04:22] LABS: Potassium 3.6 mEq/L (3.5-4.5)
[2017-09-18] MEDS: Pantoprazole 40 MG VIAL IVP SCH (08:16)
[2017-09-18] MEDS: 0.9 % Sodium Chloride 1,000 ML IVC SCH ×2 (08:17→18:25)
[2017-09-18] MEDS: Nicotine 14 MG PATCH.TD24 TD SCH ×2 (08:17→14:56)
[2017-09-18] MEDS ORDERED: (Linaclotide [Linzess] 290 MCG) PO SCH (09:00)
[2017-09-18] MEDS ORDERED: Magnesium Sulfate 2 GM in D5% in Water 100 ML IVPB ONE (11:14)
--- NOTE | 2017-09-18 11:25 | Gastroenterology Consult Note ---
Date of Encounter: 09/18/17 Time of Encounter: 11:10 - Assessment and plan (1) Elevated liver enzymes Current Visit: No Status: Acute Assessment and plan: Check MRCP to rule out obstruction. Continue to monitor LFTs daily. (2) Intractable abdominal pain Current Visit: No Status: Chronic Assessment and plan: Complete MRCP. Continue IV fluids, pain control, and antiemetics. (3) Acute recurrent pancreatitis Current Visit: Yes Status: Acute Assessment and plan: CT A/P with normal appearance of pancreas. Lipase normal at 62. Continue IV fluids, pain control, and antiemetics. (4) Nausea & vomiting Current Visit: Yes Status: Acute Qualifiers: Vomiting type: unspecified Vomiting Intractability: non-intractable Qualified Code(s): R11.2 - Nausea with vomiting, unspecified - Time Spent With Patient Total time spent is greater than 50% in coordination of care (as documented) at patient's floor/unit and/or counseling patient: GI History of Present Illness - Data of Consult Patient: known to practice within the last 3 years Consult date: 09/18/17 Requesting Physician: Gaby Ramirez MD - Consult Narrative Reason for consult: chronic pancreatitis History of present illness: Ms. Dougherty is a 42 year old female with PMHx of asthma, COPD, and chronic pancreatitis for the past 7 years who presented to the ED with complaints of abdominal pain that started 2 weeks ago and progressively worsened. Pt presented to the ED 09/13/17 for pancreatitis flare. Lipase was 59 on presentation. Pain was relieved with ketamine infusion and pt was discharged home. Pt worsened yesterday and pt presented to the ED with c/o nausea, vomiting , diarrhea, fever, chills, and weakness. Reports being unable to keep solids or liquids down and states that her diarrhea has had bright red blood present. Today her LFTs and alk phos are elevated. Lipase was [address] A/P with normal appearance of pancreas. She denies chest pain, SOB, constipation. Procedures: EUS 11/23/2016 Dr. Lin: ?? chronic pancreatitis, s/p celiac block. EGD 09/01/2015 Dr. Lin: Gastritis NSAIDs: None Anticoagulation: None Past Med Surg Social Fam HX - Past Medical History Medical history: asthma, COPD, other Psychiatric history: anxiety - Past Surgical History Surgical History: cholecystectomy, orthopedic, other, CAM/BSO - Social History Smoking Status: Current every day smoker Packs per day: 1 PPD Smokeless Tobacco Status: No Alcohol use: none Drug use: none - Family History Mother Race: Family Member Ethnicity: Non- Living Status: Still Living Hx Family Cardiac Disorders: Yes (open heart, HTN) Hx Family Endocrine Disorder: Yes (DM) Maternal Grandmother Race: Family Member Ethnicity: Non- Living Status: Hx Family Cardiac Disorders: Yes (breat, colon, stomach) Hx Family Cancer: Yes (Breast, colon, stomach) - Gastrointestinal Gastrointestinal: Present: as per HPI - Constitutional Constitutional: as per HPI - EENT Eyes: as per HPI Ears: Present: as per HPI Nose, mouth and throat: Present: as per HPI - Cardiovascular Cardiovascular ROS: Present: as per HPI - Respiratory Respiratory IM: Present: as per HPI - Genitourinary Genitourinary: Absent: change in color, Urinary frequency - Neurological ROS Neurological GI: Present: as per HPI - Hematologic/Lymphatic Hematologic/Lymphatic pediatric: Present: as per HPI - Musculoskeletal Musculoskeletal ROS GI: Present: as per HPI - Integumentary Integumentary GI: Present: as per HPI - Psychiatric ROS Psychiatric GI: Present: as per HPI - Endocrine Endocrine IM: Present: as per HPI - Constitutional Vitals: Temp Pulse Resp BP Pulse Ox 99 F 86 16 102/64 96 09/18/17 06:27 09/18/17 06:27 09/18/17 09:27 09/18/17 06:27 09/18/17 09:27 General appearance: Present: cooperative, A&O X 3, no acute distress, answers questions appropriately - Head Head exam: Present: atraumatic, normocephalic - Eye Eye exam: Present: normal appearance, sclera anicteric - ENT ENT exam: Present: mucous membranes dry - Neck Neck exam general surgery: Present: normal inspection, trachea midline - Respiratory Respiratory exam: Present: CTAB. Absent: rales, rhonchi - Cardiovascular Cardiovascular exam: Present: RRR, +S1, +S2 - GI/Abdominal GI/Abdominal exam: Present: guarding, soft, tenderness (upper abdomen), no peritoneal signs. Absent: distended, firm - Rectal Rectal exam: Present: deferred - Extremities Exam Extremities exam: Present: warm - Neurological Exam Neurological exam: Present: no focal deficits - Psychiatric Psychiatric exam: Present: normal affect, normal mood - Skin Skin exam: Present: dry, intact, normal color, warm Results - Labs CBC & Chem 7: 09/18/17 03:04 09/18/17 03:04 Labs: Last Result Calcium 8.1 mg/dL (8.6-10.8) L 09/18/17 03:04 Triglycerides 51 mg/dL (< 150) 09/18/17 03:04 Entire Visit Hgb 11.9 g/dL (11.5-15.4) D 09/18/17 03:04 Hct 35.4 % (35.3-44.9) 09/18/17 03:04 Total Bilirubin 0.5 mg/dL (0.2-1.2) 09/18/17 03:04 AST 377 Units/L (5-34) H 09/18/17 03:04 ALT 505 Units/L (0-55) H 09/18/17 03:04 Lipase 62 Units/L (8-78) 09/17/17 11:11 - Impressions Impressions Abdomen/Pelvis CT 09/17/17 14:02 IMPRESSION: 1. No CT evidence for acute intra-abdominal process. Specifically, normal CT appearance of the pancreas. 2. Stable appearance of a radiopaque foreign body in the subcutaneous soft tissues overlying the right back musculature. 3. Diverticulosis without CT evidence of diverticulitis. D/ / Liborio He / Liborio He Interpreting Provider: Liborio He Abdomen MRI 09/18/17 08:50 IMPRESSION: 1. Mild intra and extrahepatic biliary dilatation without choledocholithiasis. 2. Status post cholecystectomy. 3. No pancreatic divisum. D/ / 09/18/2017 10:41:31 Sarahi Avilez MD / katie Interpreting Provider: Sarahi Avilez MD Consult Discharge Plan - Plan Referrals: Peggy Richardson, [employer] [Primary Care Provider] -
--- NOTE | 2017-09-18 11:53 | Internal Med Progress Note ---
Date of Encounter: 09/18/17 Time of Encounter: 11:50 - Assessment and plan (1) Intractable abdominal pain Current Visit: Yes Status: Acute Assessment and plan: Reports pain is similar to her chronic pancreatitis pain, currently much worse. Pain management has been consulted. Continue Dilaudid IV [employer]SEMBLER pump for now. CT abdomen/pelvis and MRI abdomen showed no CBD stones or other acute abnormalities. GI has been consulted, possible ERCP tomorrow. Continue bowel rest, IV hydration, when necessary antiemetics. (2) Elevated liver enzymes Current Visit: Yes Status: Acute Assessment and plan: Noted to have significantly elevated AST and ALT with normal bilirubin. Continue to trend liver enzymes. (3) Acute recurrent pancreatitis Current Visit: Yes Status: Acute Assessment and plan: Plan as above. (4) Tobacco abuse Current Visit: Yes Status: Chronic (5) COPD (chronic obstructive pulmonary disease) Current Visit: Yes Status: Chronic Assessment and plan: Not in acute exacerbation. Continue when necessary bronchodilators and supplemental oxygen. Qualifiers: COPD type: emphysema Emphysema type: unspecified Qualified Code(s): J43.9 - Emphysema, unspecified - Subjective Interval history: Continues to have continuous severe abdominal pain, worse in left upper quadrant ; associated with nausea and dry heaving and vomiting; had diarrhea at home, now resolved; on IV Dilaudid [employer]SEMBLER pump; - Constitutional Vitals: Temp Pulse Resp BP Pulse Ox 98.6 F 87 16 116/73 93 09/18/17 11:46 09/18/17 11:46 09/18/17 11:46 09/18/17 11:46 09/18/17 11:46 General appearance: Present: A&O X 3, severe distress (Abdominal pain), answers questions appropriately - Respiratory Respiratory exam: Present: CTAB. Absent: accessory muscle use, rales, rhonchi, wheezes - Cardiovascular Cardiovascular exam: Present: RRR, +S1, +S2, tachycardia. Absent: diastolic murmur, gallop, rubs, systolic murmur - GI/Abdominal GI/Abdominal exam: Present: distended, normal bowel sounds, soft (severe tenderness and voluntary guarding in LUQ and mild tenderness in central abdomen) , no peritoneal signs. Absent: tenderness Internal Medicine: Result - Labs CBC & Chem 7: 09/18/17 03:04 09/18/17 03:04 Labs: Short CBC 09/18/17 Range/Units 03:04 WBC 7.3 (4.3-11.1) K/mcL Hgb 11.9 D (11.5-15.4) g/dL Hct 35.4 (35.3-44.9) % Plt Count 158 (140-400) K/mcL Neutrophils # 4.8 (1.6-8.9) K/mcL BMP 09/18/17 03:04 Sodium 137 Potassium 3.6 Chloride 105 Carbon Dioxide 24 BUN 7 Creatinine 0.55 L Glucose 86 Calcium 8.1 L Liver Function 09/18/17 Range/Units 03:04 Total Bilirubin 0.5 (0.2-1.2) mg/dL AST 377 H (5-34) Units/L ALT 505 H (0-55) Units/L Alkaline Phosphatase 196 H (38-126) Units/L Albumin 3.0 L (3.5-5.0) g/dL - Impressions Impressions Abdomen/Pelvis CT 09/17/17 14:02 IMPRESSION: 1. No CT evidence for acute intra-abdominal process. Specifically, normal CT appearance of the pancreas. 2. Stable appearance of a radiopaque foreign body in the subcutaneous soft tissues overlying the right back musculature. 3. Diverticulosis without CT evidence of diverticulitis. D/ / Liborio He / Liborio He Interpreting Provider: Liborio He Abdomen MRI 09/18/17 08:50 IMPRESSION: 1. Mild intra and extrahepatic biliary dilatation without choledocholithiasis. 2. Status post cholecystectomy. 3. No pancreatic divisum. D/ / 09/18/2017 10:41:31 Sarahi Avilez MD / katie Interpreting Provider: Sarahi Avilez MD Consult Discharge Plan - Plan Referrals: Peggy Richardson, [facility] [Primary Care Provider] -
[2017-09-18] MEDS: Ondansetron 4 MG/2 ML VIAL IVP PRN ×2 (15:50→23:48)
--- NOTE | 2017-09-18 17:08 | Pain Management History & Phys ---
Date of Encounter: 09/18/17 Time of Encounter: 17:00 Assessment and Plan (1) Acute recurrent pancreatitis Current Visit: Yes Status: Acute The assessment and plan as outlined above was discussed with the patient and/or family members who expressed understanding and agreement. All questions were answered. The patient's history is consistent with an acute on chronic pancreatitis of unknown origin. She is due for an ERCP which is planned for tomorrow. Currently she is on a Dilaudid BEAD WIRE TAPER and in the last 24 hours leading up to now she has used to proximally 16.5 mg. This brings her pain score to a 5 out of 10. I recommend continuing the Dilaudid BEAD WIRE TAPER and definitely as she finds that this helps her and she is having no side effects. I would recommend doing this until there is understanding of the underlying etiology of the patient's symptoms. Avoid using any continuous infusion. If the patient requires continuous infusion, the patient will require ICU admission. We will await the results and make recommendations following ERCP. Currently the patient is limited in terms of by mouth intake therefore parenteral medications are required. History of Present Illness Chief complaint: abdominal pain HPI: Ms. Dougherty is a 42 year old female 42-year-old female with a known history of abdominal pain chronically secondary to chronic pancreatitis. Patient was in her usual state of health over the last month until approximately 2 weeks ago when she started to get slow onset abdominal pain. This culminated over the last few days in an admission to the [facility]. The patient has exquisite epigastric tenderness localized to the mid epigastrium. There is some radiation to the left upper quadrant. The pain is not boring aching sensation with acute qualities. The patient grades her pain at this time as a 5-6 out of 10. The pain is exacerbated with direct contact as well as food. The patient feels like "there is something really wrong." She seems distressed. She normally does not take pain medication on an outpatient basis. She normally takes "nerve medicine" as prescribed by her family doctor, Dr. Richardson. She has intermittent nausea with intermittent vomiting. No reported diarrhea. No report of hemoptysis or hematochezia Past Med Surg Social Fam HX - Past Medical History Medical history: asthma, COPD, other Psychiatric history: anxiety - Past Surgical History Surgical History: cholecystectomy, orthopedic, other, CAM/BSO - Social History Smoking Status: Current every day smoker Packs per day: 1 PPD Smokeless Tobacco Status: No Alcohol use: none Drug use: none - Family History Mother Race: Family Member Ethnicity: Non- Living Status: Still Living Hx Family Cardiac Disorders: Yes (open heart, HTN) Hx Family Endocrine Disorder: Yes (DM) Maternal Grandmother Race: Family Member Ethnicity: Non- Living Status: Hx Family Cardiac Disorders: Yes (breat, colon, stomach) Hx Family Cancer: Yes (Breast, colon, stomach) Medications and Allergies Albuterol Sulfate [Proair Hfa] 2 puff IH Q4H PRN 11/23/16 [History] EPINEPHrine [Epipen] 0.3 mg IM ONCE PRN 11/23/16 [History] LORazepam [Ativan] 0.5 mg PO BID PRN 11/23/16 [History] Linaclotide [Linzess] 290 mcg PO DAILY 11/23/16 [History] Ipratropium/Albuterol Neb [Duoneb] 3 ml IH Q6HR 30 Days vial.neb 07/29/17 [Rx] Morphine Immed Rel [Morphine Sulfate] 15 mg PO Q4HR PRN #15 tab 09/13/17 [Rx] 3 Allergy/AdvReac Type Severity Reaction Status Date / Time acetaminophen [From Vicodin] Allergy Hives Verified 09/13/17 16:08 amylase [From Pancreaze] Allergy Hives Verified 09/13/17 16:08 hydrocodone [From Vicodin] Allergy Hives Verified 09/13/17 16:08 lipase [From Pancreaze] Allergy Hives Verified 09/13/17 16:08 nitrofurantoin Allergy Anaphylaxis Verified 09/13/17 16:08 [From Macrodantin] protease [From Pancreaze] Allergy Hives Verified 09/13/17 16:08 Review of Systems - Constitutional Constitutional ROS IM: as per HPI - EENT Nose, mouth and throat: no headache(s), no neck pain, no neck trauma - Cardiovascular Cardiovascular ROS: no chest pain, no leg edema, no lightheadedness - Respiratory Respiratory: no pain on inspiration, no pain with cough - Gastrointestinal Gastrointestinal: abdominal pain (Nausea) - Genitourinary Genitourinary ROS: flank pain - Musculoskeletal Musculoskeletal ROS: no muscle weakness, no numbness, no radiating pain into limb, no tingling - Integumentary Integumentary: no erythema, no lesions, no swelling - Neurological Neurological ROS: no abnormal gait, no behavioral changes, no focal weakness, no radicular pain - Psychiatric Psychiatric general: anxiety, no confusion, no depression - Hematologic/Lymphatic Hematologic/Lymphatic pediatric: no easy bleeding, no easy bruising Physical Exam Initial Vital Signs Temp Pulse Resp BP Pulse Ox 98.4 F 110 18 123/80 96 09/17/17 09:19 09/17/17 09:19 09/17/17 09:19 09/17/17 09:19 09/17/17 09:19 Results - Labs 09/18/17 03:04 09/18/17 03:04 Abnormal lab results Creatinine 0.55 mg/dL (0.57-1.11) L 09/18/17 03:04 Calcium 8.1 mg/dL (8.6-10.8) L 09/18/17 03:04 Magnesium 1.4 mg/dL (1.6-2.6) L 09/18/17 03:04 AST 377 Units/L (5-34) H 09/18/17 03:04 ALT 505 Units/L (0-55) H 09/18/17 03:04 Alkaline Phosphatase 196 Units/L (38-126) H 09/18/17 03:04 Albumin 3.0 g/dL (3.5-5.0) L 09/18/17 03:04 Albumin/Globulin Ratio 0.9 (1.1-2.2) L 09/18/17 03:04 Urine Blood Small (Negative) H 09/17/17 09:38 Ur Squamous Epith Cells Many per lpf (None-Few) H 09/17/17 09:38 Granular Casts Few per lpf (None Seen) H 09/17/17 09:38 Diabetes panel 09/18/17 Range/Units 03:04 Sodium 137 (136-145) mEq/L Potassium 3.6 (3.5-4.5) mEq/L Chloride 105 (98-109) mEq/L Carbon Dioxide 24 (19-29) mEq/L BUN 7 (7-20) mg/dL Creatinine 0.55 L (0.57-1.11) mg/dL Glucose 86 (70-99) mg/dL Calcium 8.1 L (8.6-10.8) mg/dL AST 377 H (5-34) Units/L ALT 505 H (0-55) Units/L Alkaline Phosphatase 196 H (38-126) Units/L Albumin 3.0 L (3.5-5.0) g/dL Triglycerides 51 (< 150) mg/dL HDL Cholesterol 47 (40-59) mg/dL Calcium panel 09/18/17 Range/Units 03:04 Calcium 8.1 L (8.6-10.8) mg/dL Albumin 3.0 L (3.5-5.0) g/dL Pituitary panel 09/18/17 Range/Units 03:04 Sodium 137 (136-145) mEq/L Potassium 3.6 (3.5-4.5) mEq/L Chloride 105 (98-109) mEq/L Carbon Dioxide 24 (19-29) mEq/L BUN 7 (7-20) mg/dL Creatinine 0.55 L (0.57-1.11) mg/dL Glucose 86 (70-99) mg/dL Calcium 8.1 L (8.6-10.8) mg/dL Adrenal panel 09/18/17 Range/Units 03:04 Sodium 137 (136-145) mEq/L Potassium 3.6 (3.5-4.5) mEq/L Chloride 105 (98-109) mEq/L Carbon Dioxide 24 (19-29) mEq/L BUN 7 (7-20) mg/dL Creatinine 0.55 L (0.57-1.11) mg/dL Glucose 86 (70-99) mg/dL Calcium 8.1 L (8.6-10.8) mg/dL Total Bilirubin 0.5 (0.2-1.2) mg/dL AST 377 H (5-34) Units/L ALT 505 H (0-55) Units/L Alkaline Phosphatase 196 H (38-126) Units/L Albumin 3.0 L (3.5-5.0) g/dL All other labs normal.
[2017-09-18] MEDS: *HR* HYDROmorphone 20 MG/20 ML PCA IVC PRN (17:28)
[2017-09-18] MEDS: *HR* LORazepam 0.5 MG TABLET PO PRN (21:05)
[2017-09-19] MEDS: *HR* Promethazine 25 MG/ML VIAL IVP PRN ×5 (02:11→21:04)
[2017-09-19] MEDS: 0.9 % Sodium Chloride 1,000 ML IVC SCH ×4 (02:44→21:05)
[2017-09-19 04:06] LABS: Basophils % 0.3 %; Eosinophils # 0.1 K/mcL (0.0-0.6); Eosinophils % 0.8 %; Hematocrit 32.2 % (35.3-44.9); Hemoglobin 10.6 g/dL (11.5-15.4); Immature Granulocytes % 0.3 % (0-4); Lymphocytes % 32.5 %; Mean Corpuscular HGB Conc 32.9 g/dL (31.6-35.5); Mean Corpuscular Hemoglobin 30.3 pg (28.0-33.3); Mean Platelet Volume 9.2 fL (9.4-12.4); Monocytes # 0.5 K/mcL (0.0-1.3); Monocytes % 7.2 %; Neutrophils # 3.7 K/mcL (1.6-8.9); Platelet Count 144 K/mcL (140-400); Red Cell Distribution Width 13.2 % (11.5-14.5); Segmented Neutrophils % 58.9 %
[2017-09-19] MEDS: Ondansetron 4 MG/2 ML VIAL IVP PRN ×3 (04:16→23:14)
[2017-09-19 04:19] LABS: Alanine Aminotransferase 310 Units/L (0-55); Albumin 3.1 g/dL (3.5-5.0); Albumin/Globulin Ratio 0.9 (1.1-2.2); Alkaline Phosphatase 153 Units/L (38-126); Aspartate Amino Transferase 122 Units/L (5-34); BUN/Creatinine Ratio 14 (6-26); Bilirubin,Total 0.4 mg/dL (0.2-1.2); Blood Urea Nitrogen 8 mg/dL (7-20); Calcium 8.1 mg/dL (8.6-10.8); Carbon Dioxide 24 mEq/L (19-29); Chloride 104 mEq/L (98-109); Globulin 3.4 g/dL (2.4-3.5); Glucose 72 mg/dL (70-99); Magnesium 1.6 mg/dL (1.6-2.6); Osmolality,Calculated 281 (280-300); Sodium 137 mEq/L (136-145); Total Protein 6.5 g/dL (6.0-8.3); eGFR For African Americans > 60 (> 60); eGFR For Non-African Americans > 60 (> 60)
[2017-09-19] MEDS: Ipratropium/Albuterol Neb 3 ML IH SCH ×4 (04:30→22:25)
[2017-09-19] MEDS: Nicotine 14 MG PATCH.TD24 TD SCH ×2 (08:42→08:46)
[2017-09-19] MEDS: Pantoprazole 40 MG VIAL IVP SCH (08:43)
[2017-09-19] MEDS: *HR* LORazepam 0.5 MG TABLET PO PRN ×2 (08:45→21:04)
--- NOTE | 2017-09-19 11:47 | Internal Med Progress Note ---
Date of Encounter: 09/19/17 Time of Encounter: 11:46 - Assessment and plan (1) Intractable abdominal pain Current Visit: Yes Status: Acute Assessment and plan: Reports pain is similar to her chronic pancreatitis pain, currently much worse. Improving slowly. Pain management evaluation appreciated, agree with Dilaudid IV INFRASTRUCTURE DESIGN ENGINEER pump for now. CT abdomen/pelvis and MRI abdomen showed no CBD stones or other acute abnormalities. GI has been consulted, await further recommendations. Continue bowel rest, IV hydration, when necessary antiemetics. (2) Elevated liver enzymes Current Visit: Yes Status: Acute Assessment and plan: Noted to have significantly elevated AST and ALT with normal bilirubin. Improving today. Continue to trend liver enzymes. (3) Acute recurrent pancreatitis Current Visit: Yes Status: Acute Assessment and plan: Plan as above. (4) Tobacco abuse Current Visit: Yes Status: Chronic (5) COPD (chronic obstructive pulmonary disease) Current Visit: Yes Status: Chronic Assessment and plan: Not in acute exacerbation. Continue when necessary bronchodilators and supplemental oxygen. Qualifiers: COPD type: emphysema Emphysema type: unspecified Qualified Code(s): J43.9 - Emphysema, unspecified - Subjective Interval history: Feels better than yesterday, able to get out of bed and wash her hair; improved nausea and dry heaing; continues to report intermittent spasmodic left upper abdominal pain, continues on IV Dilaudid INFRASTRUCTURE DESIGN ENGINEER pump; - Constitutional Vitals: Temp Pulse Resp BP Pulse Ox 98.2 F 105 18 132/80 91 09/19/17 11:38 09/19/17 11:38 09/19/17 11:38 09/19/17 11:38 09/19/17 11:38 General appearance: Present: A&O X 3, answers questions appropriately - Respiratory Respiratory exam: Present: CTAB. Absent: accessory muscle use, rales, rhonchi, wheezes - Cardiovascular Cardiovascular exam: Present: RRR, +S1, +S2, tachycardia. Absent: diastolic murmur, gallop, rubs, systolic murmur - GI/Abdominal GI/Abdominal exam: Present: normal bowel sounds, soft (tenderness in LUQ), no peritoneal signs. Absent: distended, tenderness - Extremities Exam Extremities exam: Present: full ROM, warm, radial pulses palpable and symmetrical. Absent: calf tenderness, cyanotic, pedal edema - Neurological Exam Neurological exam: Present: CN II-XII intact, oriented X3, no focal deficits. Absent: pronater drift, facial droop, speech deficit Internal Medicine: Result - Labs CBC & Chem 7: 09/19/17 04:00 09/19/17 04:00 Labs: Short CBC 09/19/17 Range/Units 04:00 WBC 6.3 (4.3-11.1) K/mcL Hgb 10.6 L (11.5-15.4) g/dL Hct 32.2 L (35.3-44.9) % Plt Count 144 (140-400) K/mcL Neutrophils # 3.7 (1.6-8.9) K/mcL BMP 09/19/17 04:00 Sodium 137 Potassium 4.0 Chloride 104 Carbon Dioxide 24 BUN 8 Creatinine 0.57 Glucose 72 Calcium 8.1 L Liver Function 09/19/17 Range/Units 04:00 Total Bilirubin 0.4 (0.2-1.2) mg/dL AST 122 H (5-34) Units/L ALT 310 H (0-55) Units/L Alkaline Phosphatase 153 H (38-126) Units/L Albumin 3.1 L (3.5-5.0) g/dL Consult Discharge Plan - Plan Referrals: Peggy Richardson, GLUE REEL OPERATOR [Primary Care Provider] -
[2017-09-19] MEDS ORDERED: *HR* OxyCODONE Immed Rel 5 MG TABLET PO PRN (16:07)
--- NOTE | 2017-09-19 18:44 | Pain Management Progress Note ---
Date of Encounter: 09/19/17 Time of Encounter: 12:05 - Assessment and Plan (1) Acute recurrent pancreatitis Current Visit: Yes Status: Acute Continuing ongoing SYSTEM SOFTWARE PROGRAMMER management as this patient is pending ERCP and is not tolerating PO right now. I do not see need to change at this time. Patient is still fairly anxious over the situation. Patient is still not feeling very well but does feel like the change in her nausea meds have made a good improvement. Subjective Patient reports: feels better, nausea (Vomiting less. ), other Objective Vital Signs - Last 8 Hours Temp Pulse Resp BP Pulse Ox 09/19/17 15:38 98.1 F 91 16 116/74 98 09/19/17 11:38 98.2 F 105 18 132/80 91 Intake and Output 09/19/17 09/19/17 09/19/17 07:59 15:59 23:59 Intake Total 1120 / 1120 1000 / 1000 360 / 360 Output Total 300 / 300 1400 / 1400 Balance 820 / 820 -400 / -400 360 / 360 Intake: IV Fluids 1000 / 1000 1000 / 1000 0.9 % Sodium Chloride 1,000 ML 1000 / 1000 1000 / 1000 @ 125 mls/hr IVC .Q8H SEFERINO Rx#: [id number] Oral 120 / 120 360 / 360 Output: Urine 300 / 300 1400 / 1400 Other: Meal NPO Percent of Meal Consumed 0% Weight 64 kg Blood Glucose* 70 71 Patient Weight 09/19/17 23:59 Weight 64 kg - General physical appearance moderate pain - Eyes normal ocular movement - Abdomen Abdomen: Present: soft - Psychiatric oriented to time, oriented to person, oriented to place, speech is normal, memory intact - Labs 09/19/17 04:00 09/19/17 04:00 Diabetes panel 09/19/17 Range/Units 04:00 Sodium 137 (136-145) mEq/L Potassium 4.0 (3.5-4.5) mEq/L Chloride 104 (98-109) mEq/L Carbon Dioxide 24 (19-29) mEq/L BUN 8 (7-20) mg/dL Creatinine 0.57 (0.57-1.11) mg/dL Glucose 72 (70-99) mg/dL Calcium 8.1 L (8.6-10.8) mg/dL AST 122 H (5-34) Units/L ALT 310 H (0-55) Units/L Alkaline Phosphatase 153 H (38-126) Units/L Albumin 3.1 L (3.5-5.0) g/dL Calcium panel 09/19/17 Range/Units 04:00 Calcium 8.1 L (8.6-10.8) mg/dL Albumin 3.1 L (3.5-5.0) g/dL Pituitary panel 09/19/17 Range/Units 04:00 Sodium 137 (136-145) mEq/L Potassium 4.0 (3.5-4.5) mEq/L Chloride 104 (98-109) mEq/L Carbon Dioxide 24 (19-29) mEq/L BUN 8 (7-20) mg/dL Creatinine 0.57 (0.57-1.11) mg/dL Glucose 72 (70-99) mg/dL Calcium 8.1 L (8.6-10.8) mg/dL Adrenal panel 09/19/17 Range/Units 04:00 Sodium 137 (136-145) mEq/L Potassium 4.0 (3.5-4.5) mEq/L Chloride 104 (98-109) mEq/L Carbon Dioxide 24 (19-29) mEq/L BUN 8 (7-20) mg/dL Creatinine 0.57 (0.57-1.11) mg/dL Glucose 72 (70-99) mg/dL Calcium 8.1 L (8.6-10.8) mg/dL Total Bilirubin 0.4 (0.2-1.2) mg/dL AST 122 H (5-34) Units/L ALT 310 H (0-55) Units/L Alkaline Phosphatase 153 H (38-126) Units/L Albumin 3.1 L (3.5-5.0) g/dL Consult Discharge Plan - Plan Referrals: Peggy Richardson, DIRECTOR REPORT [Primary Care Provider] -
[2017-09-19] MEDS: LINZESS 290 MCG PO SCH (21:04)
[2017-09-19] MEDS: *HR* HYDROmorphone 20 MG/20 ML PCA IVC PRN (22:52)
[2017-09-20] MEDS: *HR* Promethazine 25 MG/ML VIAL IVP PRN ×5 (02:01→20:42)
[2017-09-20] MEDS: Ipratropium/Albuterol Neb 3 ML IH SCH ×4 (03:24→22:33)
[2017-09-20] MEDS: 0.9 % Sodium Chloride 1,000 ML IVC SCH (05:03)
[2017-09-20] MEDS: Ondansetron 4 MG/2 ML VIAL IVP PRN ×3 (05:04→23:11)
[2017-09-20 05:17] LABS: Basophils % 0.3 %; Eosinophils # 0.1 K/mcL (0.0-0.6); Eosinophils % 1.1 %; Hematocrit 32.2 % (35.3-44.9); Hemoglobin 10.5 g/dL (11.5-15.4); Immature Granulocytes % 0.3 % (0-4); Lymphocytes # 1.7 K/mcL (0.6-4.6); Mean Corpuscular HGB Conc 32.6 g/dL (31.6-35.5); Mean Corpuscular Hemoglobin 29.9 pg (28.0-33.3); Mean Corpuscular Volume 91.7 fL (83.0-100.0); Mean Platelet Volume 9.5 fL (9.4-12.4); Monocytes # 0.5 K/mcL (0.0-1.3); Monocytes % 7.3 %; Neutrophils # 4.2 K/mcL (1.6-8.9); Platelet Count 148 K/mcL (140-400); Red Blood Count 3.51 M/mcL (3.82-4.97); Red Cell Distribution Width 13.2 % (11.5-14.5)
[2017-09-20 05:31] LABS: Alanine Aminotransferase 227 Units/L (0-55); Albumin 3.3 g/dL (3.5-5.0); Alkaline Phosphatase 138 Units/L (38-126); Aspartate Amino Transferase 62 Units/L (5-34); Bilirubin,Total 0.4 mg/dL (0.2-1.2); Calcium 8.4 mg/dL (8.6-10.8); Carbon Dioxide 26 mEq/L (19-29); Chloride 105 mEq/L (98-109); Globulin 3.4 g/dL (2.4-3.5); Glucose 78 mg/dL (70-99); Osmolality,Calculated 288 (280-300); Potassium 3.8 mEq/L (3.5-4.5); Sodium 141 mEq/L (136-145); Total Protein 6.7 g/dL (6.0-8.3); eGFR For African Americans > 60 (> 60); eGFR For Non-African Americans > 60 (> 60)
[2017-09-20 06:40] LABS: BUN/Creatinine Ratio 9 (6-26)
[2017-09-20 06:41] LABS: Blood Urea Nitrogen 5 mg/dL (7-20)
[2017-09-20] MEDS: Nicotine 14 MG PATCH.TD24 TD SCH (10:17)
[2017-09-20] MEDS: *HR* LORazepam 0.5 MG TABLET PO PRN ×2 (10:17→20:42)
[2017-09-20] MEDS: Pantoprazole 40 MG VIAL IVP SCH (10:18)
[2017-09-20] MEDS ORDERED: *HR* HYDROmorphone 2 MG/ML SYRINGE IVP PRN (11:36)
[2017-09-20] MEDS ORDERED: *HR* OxyCODONE Immed Rel 5 MG TABLET PO PRN (11:38)
--- NOTE | 2017-09-20 11:39 | Internal Med Progress Note ---
Date of Encounter: 09/20/17 Time of Encounter: 11:37 - Assessment and plan (1) Intractable abdominal pain Current Visit: Yes Status: Acute Assessment and plan: Reports pain is similar to her chronic pancreatitis pain, currently much worse. CT abdomen/pelvis and MRI abdomen showed no CBD stones or other acute abnormalities. Patient noted to be resting comfortably in bed, however reports excruciating pain, nausea and vomiting upon being questioned. Discussed about appropriate pain management and interventions. Case discussed with GI, no indication for ERCP at this time. Patient is now agreeable to discontinuing IV Dilaudid WINDOWS VMWARE ADMINISTRATOR pump. Start when necessary IV Dilaudid and oral Percocet along with soft diet. When necessary antiemetics. (2) Elevated liver enzymes Current Visit: Yes Status: Acute Assessment and plan: Noted to have significantly elevated AST and ALT with normal bilirubin, at admission. Improving now. Continue to trend liver enzymes. (3) Acute recurrent pancreatitis Current Visit: Yes Status: Acute Assessment and plan: Plan as above. (4) Tobacco abuse Current Visit: Yes Status: Chronic (5) COPD (chronic obstructive pulmonary disease) Current Visit: Yes Status: Chronic Assessment and plan: Not in acute exacerbation. Continue when necessary bronchodilators and supplemental oxygen. Qualifiers: COPD type: emphysema Emphysema type: unspecified Qualified Code(s): J43.9 - Emphysema, unspecified - Subjective Interval history: Noted to be sitting up comfortably in bed and coloring; continues to report severe left upper abdominal pain and nausea and vomiting; requesting ERCP, explained to her that is not the plan per GI; then she proceeded to request soft diet instead of clear liquids! - Constitutional Vitals: Temp Pulse Resp BP Pulse Ox 98.6 F 74 16 129/85 99 09/20/17 11:26 09/20/17 11:26 09/20/17 11:26 09/20/17 11:26 09/20/17 11:26 General appearance: Present: A&O X 3, answers questions appropriately - Cardiovascular Cardiovascular exam: Present: RRR, +S1, +S2. Absent: diastolic murmur, gallop, rubs, systolic murmur - GI/Abdominal GI/Abdominal exam: Present: normal bowel sounds, soft (tenderness in LUQ), no peritoneal signs. Absent: distended, tenderness - Extremities Exam Extremities exam: Present: warm, radial pulses palpable and symmetrical. Absent : calf tenderness, cyanotic, pedal edema Internal Medicine: Result - Labs CBC & Chem 7: 09/20/17 05:00 09/20/17 05:00 Labs: Short CBC 09/20/17 Range/Units 05:00 WBC 6.4 (4.3-11.1) K/mcL Hgb 10.5 L (11.5-15.4) g/dL Hct 32.2 L (35.3-44.9) % Plt Count 148 (140-400) K/mcL Neutrophils # 4.2 (1.6-8.9) K/mcL BMP 09/20/17 05:00 Sodium 141 Potassium 3.8 Chloride 105 Carbon Dioxide 26 BUN 5 L Creatinine 0.57 Glucose 78 Calcium 8.4 L Liver Function 09/20/17 Range/Units 05:00 Total Bilirubin 0.4 (0.2-1.2) mg/dL AST 62 H (5-34) Units/L ALT 227 H (0-55) Units/L Alkaline Phosphatase 138 H (38-126) Units/L Albumin 3.3 L (3.5-5.0) g/dL - VTE Documentation of Mechanical Device: Intermittent pneumatic compression device Consult Discharge Plan - Plan Referrals: Peggy Richardson, HOTEL CONCIERGE [Primary Care Provider] -
[2017-09-20] MEDS: LINZESS 290 MCG PO SCH ×3 (12:22→20:43)
[2017-09-20] MEDS: *HR* HYDROmorphone 2 MG/ML SYRINGE IVP PRN ×3 (18:49→23:05)
[2017-09-21] MEDS: *HR* HYDROmorphone 2 MG/ML SYRINGE IVP PRN ×5 (01:07→20:44)
[2017-09-21] MEDS: *HR* Promethazine 25 MG/ML VIAL IVP PRN ×5 (01:07→20:43)
[2017-09-21] MEDS: Ipratropium/Albuterol Neb 3 ML IH SCH ×4 (03:19→22:13)
[2017-09-21 05:04] LABS: Basophils % 0.2 %; Eosinophils % 0.2 %; Hematocrit 32.3 % (35.3-44.9); Hemoglobin 10.7 g/dL (11.5-15.4); Immature Granulocytes % 0.5 % (0-4); Lymphocytes # 0.8 K/mcL (0.6-4.6); Lymphocytes % 8.7 %; Mean Corpuscular HGB Conc 33.1 g/dL (31.6-35.5); Mean Corpuscular Hemoglobin 30.1 pg (28.0-33.3); Mean Platelet Volume 9.5 fL (9.4-12.4); Monocytes # 0.7 K/mcL (0.0-1.3); Monocytes % 6.8 %; Platelet Count 158 K/mcL (140-400); Red Blood Count 3.55 M/mcL (3.82-4.97); Segmented Neutrophils % 83.6 %
[2017-09-21 05:20] LABS: Alanine Aminotransferase 172 Units/L (0-55); Albumin 3.2 g/dL (3.5-5.0); Alkaline Phosphatase 125 Units/L (38-126); Aspartate Amino Transferase 43 Units/L (5-34); BUN/Creatinine Ratio 6 (6-26); Bilirubin,Total 0.3 mg/dL (0.2-1.2); Blood Urea Nitrogen 4 mg/dL (7-20); Calcium 8.8 mg/dL (8.6-10.8); Carbon Dioxide 33 mEq/L (19-29); Chloride 102 mEq/L (98-109); Globulin 3.2 g/dL (2.4-3.5); Glucose 141 mg/dL (70-99); Magnesium 1.5 mg/dL (1.6-2.6); Osmolality,Calculated 291 (280-300); Potassium 3.8 mEq/L (3.5-4.5); Sodium 141 mEq/L (136-145); Total Protein 6.4 g/dL (6.0-8.3); eGFR For African Americans > 60 (> 60); eGFR For Non-African Americans > 60 (> 60)
[2017-09-21] MEDS: Nicotine 14 MG PATCH.TD24 TD SCH (09:26)
[2017-09-21] MEDS ORDERED: *HR* HYDROmorphone 2 MG/ML SYRINGE IVP PRN (10:58)
[2017-09-21] MEDS: Ondansetron 4 MG/2 ML VIAL IVP PRN ×2 (11:52→19:01)
[2017-09-21] MEDS: *HR* LORazepam 0.5 MG TABLET PO PRN ×2 (13:16→19:07)
--- NOTE | 2017-09-21 16:01 | Internal Med Progress Note ---
Date of Encounter: 09/21/17 Time of Encounter: 10:30 - Assessment and plan (1) Intractable abdominal pain Current Visit: Yes Status: Acute Assessment and plan: Reports pain is similar to her chronic pancreatitis pain, currently much worse. CT abdomen/pelvis and MRI abdomen showed no CBD stones or other acute abnormalities. Patient noted to be resting comfortably in bed, however reports excruciating pain, nausea and vomiting upon being questioned. Case discussed with GI, no indication for ERCP at this time. Patient continues to report excruciating symptoms, request to be transferred to [facility] or [facility] for possible ERCP. Case discussed with on-call hospitalist at both the sites. Patient was admitted to [facility] in 2014 and 2 [facility] in 2010; [facility] consult notes from both sites show indeterminate findings for chronic pancreatitis, patient may not have been diagnosed with pancreatitis. Recommendations were to taper down narcotic pain medications and to continue outpatient follow-up with GI/ pancreas specialist. discussed with nursing staff to appropriately document patient's symptoms of emesis. Will taper down Dilaudid 2 to milligrams every 4 hours PRN, encourage patient to take oral oxycodone for breakthrough pain. PRN antiemetics. (2) Elevated liver enzymes Current Visit: Yes Status: Acute Assessment and plan: Noted to have significantly elevated AST and ALT with normal bilirubin, at admission. Improving now. Continue to trend liver enzymes. (3) Acute recurrent pancreatitis Current Visit: Yes Status: Ruled-out Assessment and plan: Plan as above. (4) Tobacco abuse Current Visit: Yes Status: Chronic (5) COPD (chronic obstructive pulmonary disease) Current Visit: Yes Status: Chronic Assessment and plan: Not in acute exacerbation. Continue when necessary bronchodilators and supplemental oxygen. Qualifiers: COPD type: emphysema Emphysema type: unspecified Qualified Code(s): J43.9 - Emphysema, unspecified (6) Chronic respiratory failure Current Visit: Yes Status: Chronic Assessment and plan: on home O2, due to underlying COPD; Qualifiers: Respiratory failure complication: hypoxia Qualified Code(s): J96.11 - Chronic respiratory failure with hypoxia - Subjective Interval history: Noted to be sitting up comfortably in bed, coloring, with her bedside light on; upon my entry, she reports feeling terrible with persistent abdominal pain, nausea and emesis; reports that she has been showing her vomitus to several staff members; I do not find documentation of this and her barf bags are empty at this time; - Constitutional Vitals: Temp Pulse Resp BP Pulse Ox 98.1 F 104 16 146/88 94 09/21/17 14:53 09/21/17 14:53 09/21/17 14:53 09/21/17 14:53 09/21/17 14:53 General appearance: Present: A&O X 3, answers questions appropriately - Respiratory Respiratory exam: Present: CTAB. Absent: accessory muscle use, rales, rhonchi, wheezes - Cardiovascular Cardiovascular exam: Present: RRR, +S1, +S2. Absent: diastolic murmur, gallop, rubs, systolic murmur - GI/Abdominal GI/Abdominal exam: Present: normal bowel sounds, soft (LUQ tenderness), no peritoneal signs. Absent: distended, tenderness - Extremities Exam Extremities exam: Present: full ROM, warm, radial pulses palpable and symmetrical. Absent: calf tenderness, cyanotic, pedal edema - Neurological Exam Neurological exam: Present: CN II-XII intact, oriented X3, no focal deficits. Absent: pronater drift, facial droop, speech deficit Internal Medicine: Result - Labs CBC & Chem 7: 09/21/17 04:25 09/21/17 04:25 Labs: Short CBC 09/21/17 Range/Units 04:25 WBC 9.6 (4.3-11.1) K/mcL Hgb 10.7 L (11.5-15.4) g/dL Hct 32.3 L (35.3-44.9) % Plt Count 158 (140-400) K/mcL Neutrophils # 8.0 (1.6-8.9) K/mcL BMP 09/21/17 04:25 Sodium 141 Potassium 3.8 Chloride 102 Carbon Dioxide 33 H BUN 4 L Creatinine 0.65 Glucose 141 H Calcium 8.8 Liver Function 09/21/17 Range/Units 04:25 Total Bilirubin 0.3 (0.2-1.2) mg/dL AST 43 H (5-34) Units/L ALT 172 H (0-55) Units/L Alkaline Phosphatase 125 (38-126) Units/L Albumin 3.2 L (3.5-5.0) g/dL - VTE Documentation of Mechanical Device: Intermittent pneumatic compression device Consult Discharge Plan - Plan Referrals: Peggy Richardson, [facility]RA [Primary Care Provider] -
[2017-09-21] MEDS: Sennosides 8.6 MG TABLET PO SCH (20:44)
[2017-09-21] MEDS: LINZESS 290 MCG PO SCH (20:51)
[2017-09-22] MEDS: *HR* HYDROmorphone 2 MG/ML SYRINGE IVP PRN ×3 (01:09→13:40)
[2017-09-22] MEDS: Ondansetron 4 MG/2 ML VIAL IVP PRN ×3 (01:15→17:01)
[2017-09-22] MEDS: *HR* Promethazine 25 MG/ML VIAL IVP PRN ×3 (03:16→13:40)
[2017-09-22] MEDS: Ipratropium/Albuterol Neb 3 ML IH SCH ×4 (04:48→22:58)
[2017-09-22] MEDS: Sennosides 8.6 MG TABLET PO SCH (09:07)
[2017-09-22] MEDS: LINZESS 290 MCG PO SCH (09:07)
[2017-09-22] MEDS: *HR* LORazepam 0.5 MG TABLET PO PRN ×2 (10:57→16:58)
--- NOTE | 2017-09-22 12:46 | Internal Med Progress Note ---
Date of Encounter: 09/22/17 Time of Encounter: 12:44 - Assessment and plan (1) Intractable abdominal pain Current Visit: Yes Status: Acute Assessment and plan: Unclear etiology- ?neuropathic/psychogenic/pancreatic; Case discussed with GI, no indication for ERCP at this time. Patient continues to report excruciating symptoms, request to be transferred to [facility] or [facility] for possible ERCP. Case discussed with on-call hospitalist at both the sites. Patient was admitted to [facility] in 2014 and 2 [facility] in 2010; EUS and GI consult notes from both sites show indeterminate findings for chronic pancreatitis, patient may not have been diagnosed with pancreatitis. Continue Dilaudid 2 to milligrams every 4 hours PRN, encourage patient to take oral oxycodone for breakthrough pain. PRN antiemetics. Plan to transfer to [facility] when bed is available; (2) Elevated liver enzymes Current Visit: Yes Status: Acute Assessment and plan: Noted to have significantly elevated AST and ALT with normal bilirubin, at admission. Improving. Continue to trend liver enzymes. (3) Acute recurrent pancreatitis Current Visit: Yes Status: Ruled-out (4) Tobacco abuse Current Visit: Yes Status: Chronic (5) COPD (chronic obstructive pulmonary disease) Current Visit: Yes Status: Chronic Assessment and plan: Not in acute exacerbation. Continue when necessary bronchodilators and supplemental oxygen. Improving O2 requirements. Qualifiers: COPD type: emphysema Emphysema type: unspecified Qualified Code(s): J43.9 - Emphysema, unspecified (6) Chronic respiratory failure Current Visit: Yes Status: Chronic Qualifiers: Respiratory failure complication: hypoxia Qualified Code(s): J96.11 - Chronic respiratory failure with hypoxia - Subjective Interval history: Continues to report significant abdominal pain associated with nausea and vomiting; reports constipation; awaiting bed availability at [facility]; - Constitutional Vitals: Temp Pulse Resp BP Pulse Ox 98.2 F 106 16 125/84 94 09/22/17 10:56 09/22/17 10:56 09/22/17 10:56 09/22/17 10:56 09/22/17 10:56 General appearance: Present: A&O X 3, answers questions appropriately - Respiratory Respiratory exam: Present: CTAB. Absent: accessory muscle use, rales, rhonchi, wheezes - Cardiovascular Cardiovascular exam: Present: RRR, +S1, +S2, tachycardia. Absent: diastolic murmur, gallop, rubs, systolic murmur - GI/Abdominal GI/Abdominal exam: Present: normal bowel sounds, soft (diffuse tenderness to light palpation), no peritoneal signs. Absent: distended, tenderness Internal Medicine: Result - Labs CBC & Chem 7: 09/21/17 04:25 09/21/17 04:25 - VTE Documentation of Mechanical Device: Intermittent pneumatic compression device Consult Discharge Plan - Plan Referrals: Peggy Richardson CNP [Primary Care Provider] -
[2017-09-22] MEDS ORDERED: Ondansetron 4 MG/2 ML VIAL IM PRN (18:10)
[2017-09-22] MEDS ORDERED: *HR* HYDROmorphone 2 MG/ML SYRINGE IM ONE (20:50)
[2017-09-22] MEDS ORDERED: Sennosides/Docusate Sodium TABLET PO SCH (21:00)
[2017-09-23] MEDS: *HR* Promethazine 25 MG/ML VIAL IVP PRN (02:08)
[2017-09-23] MEDS: *HR* HYDROmorphone 2 MG/ML SYRINGE IVP PRN ×2 (02:08→06:30)
[2017-09-23 03:49] VITALS: BP 112/74
[2017-09-23] MEDS: Ipratropium/Albuterol Neb 3 ML IH SCH (04:01)
[2017-09-23] MEDS: *HR* LORazepam 0.5 MG TABLET PO PRN (04:29)
[2017-09-23] MEDS: Ondansetron 4 MG/2 ML VIAL IVP PRN (06:30)
--- NOTE | 2017-09-24 17:27 | Discharge Summary ---
Date of Encounter: 09/23/17 Time of Encounter: 06:00 - Discharge Diagnosis (1) Intractable abdominal pain Priority: Primary Status: Acute (2) Elevated liver enzymes Priority: Primary Status: Acute (3) Acute recurrent pancreatitis Priority: Primary Status: Ruled-out (4) Tobacco abuse Priority: Secondary Status: Chronic (5) COPD (chronic obstructive pulmonary disease) Priority: Secondary Status: Chronic Qualifiers: COPD type: emphysema Emphysema type: unspecified Qualified Code(s): J43.9 - Emphysema, unspecified (6) Chronic respiratory failure Priority: Secondary Status: Chronic Qualifiers: Respiratory failure complication: hypoxia Qualified Code(s): J96.11 - Chronic respiratory failure with hypoxia - Discharge Medications Home Medications: Albuterol Sulfate [Proair Hfa] 2 puff IH Q4H PRN 11/23/16 [History] EPINEPHrine [Epipen] 0.3 mg IM ONCE PRN 11/23/16 [History] LORazepam [Ativan] 0.5 mg PO BID PRN 11/23/16 [History] Linaclotide [Linzess] 290 mcg PO DAILY 11/23/16 [History] Ipratropium/Albuterol Neb [Duoneb] 3 ml IH Q6HR 30 Days vial.neb 07/29/17 [Rx] Morphine Immed Rel [Morphine Sulfate] 15 mg PO Q4HR PRN #15 tab 09/13/17 [Rx] Allergies/Adverse Reactions: 3 Allergy/AdvReac Type Severity Reaction Status Date / Time acetaminophen [From Vicodin] Allergy Hives Verified 09/13/17 16:08 amylase [From Pancreaze] Allergy Hives Verified 09/13/17 16:08 hydrocodone [From Vicodin] Allergy Hives Verified 09/13/17 16:08 lipase [From Pancreaze] Allergy Hives Verified 09/13/17 16:08 nitrofurantoin Allergy Anaphylaxis Verified 09/13/17 16:08 [From Macrodantin] protease [From Pancreaze] Allergy Hives Verified 09/13/17 16:08 Date of admission: 09/18/17 18:06 Primary care physician: Peggy Richardson CNP Discharging clinician: Gaby Ramirez Anticipated date of discharge: 09/23/17 - Patient Status Disposition: Transfer Short-Term Hosp Condition: Good - Discharge Instructions Follow Up With: Peggy Richardson CNP [Primary Care Provider] - Hospital course: Ms. Dougherty is a 42 year old female with the above medical problems who was admitted with intractable abdominal pain associated with nausea and vomiting. Initial labs revealed elevated liver enzymes with no hyperbilirubinemia. CT abdomen/pelvis showed no acute abnormality. She was started on IV hydration, bowel rest, pain control with IV Dilaudid BINGO MANAGER pump and when necessary antiemetics. Gastroenterology was consulted and patient received MRCP, which showed Mild intra and extrahepatic biliary dilatation without choledocholithiasis. Status post cholecystectomy. No further intervention was recommended. Patient continued to require IV analgesics like Dilaudid, refuses to take oral analgesics due to significant nausea, has been receiving IV Zofran and Phenergan with no improvement in symptoms. Case discussed with transfer center at [facility], patient transferred was declined due to previous negative workup and no objective evidence of pancreatitis. Case discussed with transfer center at [facility], who also recommended outpatient GI follow-up as there was no clear evidence of pancreatitis on previous EUS/ERCP. However, patient insisted on being transferred due to persistent symptoms and she is medically stable for this transfer. - Time Spent with Patient Total time spent providing and/or coordinating discharge services: - Constitutional Vitals: Temp Pulse Resp BP Pulse Ox 98.2 F 87 16 112/74 97 09/23/17 03:44 09/23/17 03:44 09/23/17 03:44 09/23/17 03:44 09/23/17 03:44 General appearance: Present: A&O X 3, answers questions appropriately - VTE Documentation of Mechanical Device: Intermittent pneumatic compression device
== END 2017-09-23 06:43 | disposition short-term general hospital (02) | DRG 439 ==
LOC: 3ANU 09:18 → EMEROO 09:18 → SUATTDRO 12:36 → 3ANU 13:32
PROVIDERS: ADMIT Internal Medicine; ATTEND Internal Medicine

== ENCOUNTER 2017-11-15 14:01 | Observation (INO) ==
[2017-11-15 14:35] LABS: Bilirubin,Urine Negative (Negative); Blood,Urine Small (Negative); Clarity,Urine Clear (Clear); Color,Urine Yellow (Yellow); Glucose,Urine (UA) Normal (Normal); Ketones,Urine Negative (Negative); Leukocyte Esterase,Urine Negative (Negative); Nitrite,Urine Negative (Negative); Protein,Urine Negative (Neg-Trace); Specific Gravity,Urine 1.013 (1.010-1.025); Urobilinogen,Urine Normal (Normal)
[2017-11-15 14:36] LABS: Bacteria,Urine None Seen per hpf (None-Few); Hyaline Casts,Urine None Seen per lpf (None-Few); RBC,Urine 0-3 per hpf (0-3); Squamous Epithelial Cell,Urine Few per lpf (None-Few); WBC,Urine 0-3 per hpf (0-3)
--- NOTE | 2017-11-15 15:14 | Emergency Department Note ---
Disposition Clinical Impression: GI bleed, Abdominal pain Disposition: Admitted As Inpatient Condition: Fair General Adult HPI - General Chief complaint: ED Abdominal Pain Stated complaint: blood in stool Time Seen by Provider: 11/15/17 15:08 Source: patient - History of Present Illness Pain Scale: 7 - Related Data Home Medications Medication Instructions Recorded Confirmed Albuterol Sulfate [Proair Hfa] 2 puff IH Q4H PRN 11/23/16 11/15/17 EPINEPHrine [Epipen] 0.3 mg IM ONCE PRN 11/23/16 11/15/17 LORazepam [Ativan] 0.5 mg PO BID PRN 11/23/16 11/15/17 Linaclotide [Linzess] 290 mcg PO DAILY PRN 11/23/16 11/15/17 Amitriptyline [Elavil] 10 mg PO HS 11/15/17 11/15/17 Lipase/Protease/Amylase [Kevin Celis 12,000 unit PO TIDWM 11/15/17 11/15/17 12,000 Units Capsule] Loratadine [Claritin] 10 mg PO DAILY PRN 11/15/17 11/15/17 Oxygen 2 - 3 l NS HS 11/15/17 11/15/17 Pantoprazole Sodium [Protonix] 40 mg PO BID 11/15/17 11/15/17 Promethazine [Phenergan] 25 mg PO BID PRN 11/15/17 11/15/17 Rivaroxaban [Xarelto] 20 mg PO DAILY 11/15/17 11/15/17 Sennosides/Docusate Sodium [Senna 1 each PO BID PRN 11/15/17 11/15/17 Plus] Allergies Allergy/AdvReac Type Severity Reaction Status Date / Time acetaminophen [From Vicodin] Allergy Hives Verified 09/13/17 16:08 amylase [From Pancreaze] Allergy Hives Verified 09/13/17 16:08 hydrocodone [From Vicodin] Allergy Hives Verified 09/13/17 16:08 lipase [From Pancreaze] Allergy Hives Verified 09/13/17 16:08 nitrofurantoin Allergy Anaphylaxis Verified 09/13/17 16:08 [From Macrodantin] Pneumococcal Vaccine Allergy See Verified 11/15/17 14:17 Comments protease [From Pancreaze] Allergy Hives Verified 09/13/17 16:08 Past Medical History - Past Medical History Medical history: Reports: asthma, COPD, other Surgical history: Reports: cholecystectomy, orthopedic, other, CAM/BSO Psychiatric history: Reports: anxiety [employer] 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 - Social History Smoking Status: Current every day smoker Smokeless Tobacco Status: No Alcohol use: Reports: none Drug use: Reports: none Physical Exam - General General appearance: alert, in no apparent distress Course Vital Signs Temperature 98.3 F 11/15/17 14:15 Pulse Rate 91 11/15/17 14:15 Respiratory Rate 16 11/15/17 14:15 Blood Pressure 123/81 11/15/17 14:15 O2 Sat by Pulse Oximetry 99 11/15/17 14:15 Temperature 98.0 F 11/15/17 21:21 Pulse Rate 72 11/15/17 21:21 Respiratory Rate 15 11/15/17 21:21 Blood Pressure 123/77 11/15/17 21:21 O2 Sat by Pulse Oximetry 96 11/15/17 21:21 Oxygen Delivery Oxygen Delivery Room Air Medical Decision Making - Lab Data Result diagrams: 11/15/17 21:33 11/15/17 15:27 Lab Results 11/15/17 11/15/17 11/15/17 Range/Units 14:23 14:23 15:27 WBC 8.7 (4.3-11.1) K/mcL RBC 4.58 (3.82-4.97) M/mcL Hgb 13.6 (11.5-15.4) g/dL Hct 40.9 (35.3-44.9) % MCV 89.3 (83.0-100.0) fL MCH 29.7 (28.0-33.3) pg MCHC 33.3 (31.6-35.5) g/dL RDW 13.2 (11.5-14.5) % Plt Count 236 (140-400) K/mcL MPV 9.5 (9.4-12.4) fL Immature Gran % 0.2 (0-4) % Seg Neutrophils % 60.0 % Lymphocytes % 32.9 % Monocytes % 5.6 % Eosinophils % 1.0 % Basophils % 0.3 % Neutrophils # 5.2 (1.6-8.9) K/mcL Lymphocytes # 2.9 (0.6-4.6) K/mcL Monocytes # 0.5 (0.0-1.3) K/mcL Eosinophils # 0.1 (0.0-0.6) K/mcL Basophils # 0.0 (0.0-0.2) K/mcL Nucleated RBCs/100 WBC 0.2 H (0) /100 WBC PT (9.4-12.1) Seconds INR Sodium (136-145) mEq/L Potassium (3.5-5.1) mEq/L Chloride (98-107) mEq/L Carbon Dioxide (23-29) mEq/L BUN (6-20) mg/dL Creatinine (0.60-1.20) mg/dL Est GFR ( Amer) (> 60) Est GFR (Non-Af Amer) (> 60) BUN/Creatinine Ratio (6-26) Glucose (70-105) mg/dL Calculated Osmolality (280-300) Calcium (8.6-10.3) mg/dL Total Bilirubin (0.3-1.0) mg/dL Direct Bilirubin (0.0-0.2) mg/dL Indirect Bilirubin (0.0-1.2) mg/dL AST (13-39) Units/L ALT (7-52) Units/L Alkaline Phosphatase (34-104) Units/L Serum Total Protein (6.4-8.9) g/dL Albumin (3.5-5.7) g/dL Globulin (2.4-3.5) g/dL Albumin/Globulin Ratio (1.1-2.2) Lipase (11-82) Units/L Urine Color Yellow (Yellow) Urine Clarity Clear (Clear) Urine pH 6.0 (5.0-8.0) pH Units Ur Specific [place] 1.013 (1.010-1.025) Urine Protein Negative (Neg-Trace) mg/dL Urine Glucose (UA) Normal (Normal) mg/dL Urine Ketones Negative (Negative) mg/dL Urine Blood Small H (Negative) Urine Nitrite Negative (Negative) Urine Bilirubin Negative (Negative) Urine Urobilinogen Normal (Normal) mg/dL Ur Leukocyte Esterase Negative (Negative) Urine Microscopic RBC 0-3 (0-3) per hpf Urine Microscopic WBC 0-3 (0-3) per hpf Ur Squamous Epith Cells Few (None-Few) per lpf Urine Bacteria None Seen (None-Few) per hpf Hyaline Casts None Seen (None-Few) per lpf Ur Culture Indicated? NO (NO) Urine Test Negative (Negative) Stool Occult Blood (Negative) Blood Type Antibody Screen 11/15/17 11/15/17 11/15/17 Range/Units 15:27 15:27 15:27 WBC (4.3-11.1) K/mcL RBC (3.82-4.97) M/mcL Hgb (11.5-15.4) g/dL Hct (35.3-44.9) % MCV (83.0-100.0) fL MCH (28.0-33.3) pg MCHC (31.6-35.5) g/dL RDW (11.5-14.5) % Plt Count (140-400) K/mcL MPV (9.4-12.4) fL Immature Gran % (0-4) % Seg Neutrophils % % Lymphocytes % % Monocytes % % Eosinophils % % Basophils % % Neutrophils # (1.6-8.9) K/mcL Lymphocytes # (0.6-4.6) K/mcL Monocytes # (0.0-1.3) K/mcL Eosinophils # (0.0-0.6) K/mcL Basophils # (0.0-0.2) K/mcL Nucleated RBCs/100 WBC (0) /100 WBC PT 12.1 (9.4-12.1) Seconds INR 1.1 Sodium 139 (136-145) mEq/L Potassium 3.9 (3.5-5.1) mEq/L Chloride 110 H (98-107) mEq/L Carbon Dioxide 25 (23-29) mEq/L BUN 11 (6-20) mg/dL Creatinine 0.55 L (0.60-1.20) mg/dL Est GFR ( Amer) > 60 (> 60) Est GFR (Non-Af Amer) > 60 (> 60) BUN/Creatinine Ratio 20 (6-26) Glucose 88 (70-105) mg/dL Calculated Osmolality 287 (280-300) Calcium 9.3 (8.6-10.3) mg/dL Total Bilirubin 0.2 L (0.3-1.0) mg/dL Direct Bilirubin 0.0 (0.0-0.2) mg/dL Indirect Bilirubin 0.2 (0.0-1.2) mg/dL AST 16 (13-39) Units/L ALT 7 (7-52) Units/L Alkaline Phosphatase 84 (34-104) Units/L Serum Total Protein 7.4 (6.4-8.9) g/dL Albumin 4.2 (3.5-5.7) g/dL Globulin 3.2 (2.4-3.5) g/dL Albumin/Globulin Ratio 1.3 (1.1-2.2) Lipase 52 (11-82) Units/L Urine Color (Yellow) Urine Clarity (Clear) Urine pH (5.0-8.0) pH Units Ur Specific [place] (1.010-1.025) Urine Protein (Neg-Trace) mg/dL Urine Glucose (UA) (Normal) mg/dL Urine Ketones (Negative) mg/dL Urine Blood (Negative) Urine Nitrite (Negative) Urine Bilirubin (Negative) Urine Urobilinogen (Normal) mg/dL Ur Leukocyte Esterase (Negative) Urine Microscopic RBC (0-3) per hpf Urine Microscopic WBC (0-3) per hpf Ur Squamous Epith Cells (None-Few) per lpf Urine Bacteria (None-Few) per hpf Hyaline Casts (None-Few) per lpf Ur Culture Indicated? (NO) Urine Test (Negative) Stool Occult Blood (Negative) Blood Type A POSITIVE Antibody Screen NEGATIVE 11/15/17 11/15/17 Range/Units 15:31 17:59 WBC (4.3-11.1) K/mcL RBC (3.82-4.97) M/mcL Hgb 12.2 (11.5-15.4) g/dL Hct 37.4 (35.3-44.9) % MCV (83.0-100.0) fL MCH (28.0-33.3) pg MCHC (31.6-35.5) g/dL RDW (11.5-14.5) % Plt Count (140-400) K/mcL MPV (9.4-12.4) fL Immature Gran % (0-4) % Seg Neutrophils % % Lymphocytes % % Monocytes % % Eosinophils % % Basophils % % Neutrophils # (1.6-8.9) K/mcL Lymphocytes # (0.6-4.6) K/mcL Monocytes # (0.0-1.3) K/mcL Eosinophils # (0.0-0.6) K/mcL Basophils # (0.0-0.2) K/mcL Nucleated RBCs/100 WBC (0) /100 WBC PT (9.4-12.1) Seconds INR Sodium (136-145) mEq/L Potassium (3.5-5.1) mEq/L Chloride (98-107) mEq/L Carbon Dioxide (23-29) mEq/L BUN (6-20) mg/dL Creatinine (0.60-1.20) mg/dL Est GFR ( Amer) (> 60) Est GFR (Non-Af Amer) (> 60) BUN/Creatinine Ratio (6-26) Glucose (70-105) mg/dL Calculated Osmolality (280-300) Calcium (8.6-10.3) mg/dL Total Bilirubin (0.3-1.0) mg/dL Direct Bilirubin (0.0-0.2) mg/dL Indirect Bilirubin (0.0-1.2) mg/dL AST (13-39) Units/L ALT (7-52) Units/L Alkaline Phosphatase (34-104) Units/L Serum Total Protein (6.4-8.9) g/dL Albumin (3.5-5.7) g/dL Globulin (2.4-3.5) g/dL Albumin/Globulin Ratio (1.1-2.2) Lipase (11-82) Units/L Urine Color (Yellow) Urine Clarity (Clear) Urine pH (5.0-8.0) pH Units Ur Specific [place] (1.010-1.025) Urine Protein (Neg-Trace) mg/dL Urine Glucose (UA) (Normal) mg/dL Urine Ketones (Negative) mg/dL Urine Blood (Negative) Urine Nitrite (Negative) Urine Bilirubin (Negative) Urine Urobilinogen (Normal) mg/dL Ur Leukocyte Esterase (Negative) Urine Microscopic RBC (0-3) per hpf Urine Microscopic WBC (0-3) per hpf Ur Squamous Epith Cells (None-Few) per lpf Urine Bacteria (None-Few) per hpf Hyaline Casts (None-Few) per lpf Ur Culture Indicated? (NO) Urine Test (Negative) Stool Occult Blood Positive A (Negative) Blood Type Antibody Screen Attestation Statement - Attestation Attestation: I examined this patient and my medical decision-making was reviewed with the Resident Physician. I agree with the documented findings, disposition and treatment plan as described except to the extent set forth below. [id number] time provided in conjunction with the resident physician Dr. Sky. The patient arrives complaining of abdominal pain. I did review the transcribed report of the gastroenterology consultation. The patient had a CT scan of her abdomen and pelvis dated 09/17/17 as well as an MRI of her abdomen dated 09/18/17. She appears mildly uncomfortable on exam. Triage vitals reviewed by me
[2017-11-15] MEDS ORDERED: *HR* Ketamine 500 MG/5 ML MDV IVP ONE (15:32)
[2017-11-15] MEDS ORDERED: 0.9 % Sodium Chloride 1,000 ML IVC ONE (15:35)
[2017-11-15] MEDS ORDERED: *HR* Promethazine 25 MG/ML VIAL IVP ONE ×2 (15:35→19:19)
--- NOTE | 2017-11-15 15:39 | Emergency Department Note ---
Disposition Clinical Impression: GI bleed Qualifiers: GI bleed type/associated pathology: unspecified gastrointestinal hemorrhage type Qualified Code(s): K92.2 - Gastrointestinal hemorrhage, unspecified Abdominal pain Qualifiers: Abdominal location: unspecified location Qualified Code(s): R10.9 - Unspecified abdominal pain Disposition: Admitted As Inpatient Condition: Fair Time of Disposition: 18:26 GI Bleed HPI - General Chief complaint: ED Abdominal Pain Stated complaint: blood in stool Time Seen by Provider: 11/15/17 15:08 Source: patient Mode of arrival: ambulatory Limitations: no limitations Nursing Notes Reviewed: Yes Vital Signs Reviewed: Yes - History of Present Illness HPI Narrative: 42-year-old female history of diverticulitis as well as chronic pancreatitis from medications present for evaluation of red blood in her stool. Patient notes his symptom onset was 3 days ago. At that time the patient noted darker blood and has since noted bright red blood. Denies history of hemorrhoids. Denies history of constipation but does note that she has irritable bowel syndrome. Patient also notes epigastric and left-sided abdominal pain. Patient reports some dizziness and lightheadedness. Patient denies any vaginal bleeding or discharge. Patient denies any chest pain. Patient states that she is on 04 a provoked DVT in the upper extremity diagnosed in September. Patient called her GI doctor this morning was told to go the ER for further evaluation. - Related Data Home Medications Medication Instructions Recorded Confirmed Albuterol Sulfate [Proair Hfa] 2 puff IH Q4H PRN 11/23/16 11/15/17 EPINEPHrine [Epipen] 0.3 mg IM ONCE PRN 11/23/16 11/15/17 LORazepam [Ativan] 0.5 mg PO BID PRN 11/23/16 11/15/17 Linaclotide [Linzess] 290 mcg PO DAILY PRN 11/23/16 11/15/17 Amitriptyline [Elavil] 10 mg PO HS 11/15/17 11/15/17 Lipase/Protease/Amylase [Creon Dr 12,000 unit PO TIDWM 11/15/17 11/15/17 12,000 Units Capsule] Loratadine [Claritin] 10 mg PO DAILY PRN 11/15/17 11/15/17 Oxygen 2 - 3 l NS HS 11/15/17 11/15/17 Pantoprazole Sodium [Protonix] 40 mg PO BID 11/15/17 11/15/17 Promethazine [Phenergan] 25 mg PO BID PRN 11/15/17 11/15/17 Rivaroxaban [Xarelto] 20 mg PO DAILY 11/15/17 11/15/17 Sennosides/Docusate Sodium [Senna 1 each PO BID PRN 11/15/17 11/15/17 Plus] Allergies Allergy/AdvReac Type Severity Reaction Status Date / Time acetaminophen [From Vicodin] Allergy Hives Verified 09/13/17 16:08 amylase [From Pancreaze] Allergy Hives Verified 09/13/17 16:08 hydrocodone [From Vicodin] Allergy Hives Verified 09/13/17 16:08 lipase [From Pancreaze] Allergy Hives Verified 09/13/17 16:08 nitrofurantoin Allergy Anaphylaxis Verified 09/13/17 16:08 [From Macrodantin] Pneumococcal Vaccine Allergy See Verified 11/15/17 14:17 Comments protease [From Pancreaze] Allergy Hives Verified 09/13/17 16:08 All systems ED: reviewed and negative except as stated. Constitutional: Denies: fever Cardiovascular: Denies: chest pain Respiratory: Denies: dyspnea Gastrointestinal: Reports: abdominal pain, nausea, melena. Denies: vomiting, diarrhea, constipation, hematemesis Genitourinary: Denies: dysuria Past Medical History - Past Medical History Source: patient Medical history: Reports: asthma, COPD, other Surgical history: Reports: cholecystectomy, orthopedic, other, CAM/BSO Psychiatric history: Reports: anxiety GALLEY HAND history: Reports: no GALLEY HAND history - Social History Smoking Status: Current every day smoker Smokeless Tobacco Status: No Alcohol use: Reports: none Drug use: Reports: none Physical Exam - General Limitations: no limitations General appearance: alert, in no apparent distress - Head Head exam: atraumatic, normocephalic, normal inspection - Eye Eye exam: Present: normal appearance, PERRL, EOMI. Absent: scleral icterus - ENT ENT exam: normal exam, mucous membranes moist - Neck Neck exam: Present: normal inspection, trachea midline - Chest Chest inspection: Present: normal inspection, symmetric chest wall rise - Respiratory Respiratory exam: Present: normal lung sounds bilaterally, respiratory distress - Cardiovascular Cardiovascular exam: Present: regular rate, normal rhythm. Absent: systolic murmur - Abdominal Exam Abdominal exam: Present: soft, tenderness. Absent: distention, guarding, rebound - Rectal Exam Technology Specialist present during exam: Yes Rectal exam: Present: normal inspection. Absent: black stool, bloody stool, hemorrhoids - Extremities Exam Extremities exam: Present: normal inspection - Back Exam Back exam: Present: normal inspection - Neurological Exam Neurological exam: Present: alert, oriented X3, CN II-XII intact - Skin Skin exam: Present: warm, dry, intact, normal color Course Course Narrative: Patient seen and examined. Patient will get basic lab work including coags and type and screen. Patient also get CT imaging of the abdomen and pelvis given concerns of abdominal pain in sequelae of chronic pancreatitis. Patient will be given appropriate pain medication. Disposition pending. - Reevaluation(s) Reevaluation #1: Patient has IV placed. Patient is getting appropriate pain medication. Notes that she did have another bloody stool. Awaiting CT of the abdomen and pelvis. Time: 17:11 Reevaluation #2: Patient seen and examined. Patient notes mild relief of pain. Awaiting CT results. Time: 17:48 Reevaluation #3: Patient's hemoglobin did drop from prior evaluation proximally 4 hours ago. Patient will be admitted to hospital service for continued management of her GI bleed. Discussion with need for anticoagulation. Time: 18:25 Vital Signs Temperature 98.3 F 11/15/17 14:15 Pulse Rate 91 11/15/17 14:15 Respiratory Rate 16 11/15/17 14:15 Blood Pressure 123/81 11/15/17 14:15 O2 Sat by Pulse Oximetry 99 11/15/17 14:15 Temperature 98.3 F 11/15/17 14:15 Pulse Rate 88 11/15/17 19:43 Respiratory Rate 16 11/15/17 19:48 Blood Pressure 111/69 11/15/17 19:48 O2 Sat by Pulse Oximetry 97 11/15/17 19:43 Oxygen Delivery Oxygen Delivery Room Air GI Bleed - [facility] Narrative Medical decision making narrative: Patient seen and examined. Patient presents with bright red blood in stool. Patient is on coagulation. Patient's hemoglobin initially stable. Patient did have a hemoglobin drop with positive occult blood. She does have a history of pancreatitis however CT as well as laboratory findings are not consistent with acute or chronic pancreatitis. Given the patient's drop in hemoglobin the patient will be admitted for further GI workup to the hospitalist service. GI doctor was not consulted from the emergency department as the patient does not have any immediate GI intervention. Recommend to continue to trend her hemoglobins as well as have a discussion regarding stopping her Xarelto. - Lab Data Lab results reviewed: Yes I reviewed the patient's lab results. Result diagrams: 11/15/17 17:59 11/15/17 15:27 Lab Results 11/15/17 11/15/17 11/15/17 Range/Units 14:23 14:23 15:27 WBC 8.7 (4.3-11.1) K/mcL RBC 4.58 (3.82-4.97) M/mcL Hgb 13.6 (11.5-15.4) g/dL Hct 40.9 (35.3-44.9) % MCV 89.3 (83.0-100.0) fL MCH 29.7 (28.0-33.3) pg MCHC 33.3 (31.6-35.5) g/dL RDW 13.2 (11.5-14.5) % Plt Count 236 (140-400) K/mcL MPV 9.5 (9.4-12.4) fL Immature Gran % 0.2 (0-4) % Seg Neutrophils % 60.0 % Lymphocytes % 32.9 % Monocytes % 5.6 % Eosinophils % 1.0 % Basophils % 0.3 % Neutrophils # 5.2 (1.6-8.9) K/mcL Lymphocytes # 2.9 (0.6-4.6) K/mcL Monocytes # 0.5 (0.0-1.3) K/mcL Eosinophils # 0.1 (0.0-0.6) K/mcL Basophils # 0.0 (0.0-0.2) K/mcL Nucleated RBCs/100 WBC 0.2 H (0) /100 WBC PT (9.4-12.1) Seconds INR Sodium (136-145) mEq/L Potassium (3.5-5.1) mEq/L Chloride (98-107) mEq/L Carbon Dioxide (23-29) mEq/L BUN (6-20) mg/dL Creatinine (0.60-1.20) mg/dL Est GFR ( Amer) (> 60) Est GFR (Non-Af Amer) (> 60) BUN/Creatinine Ratio (6-26) Glucose (70-105) mg/dL Calculated Osmolality (280-300) Calcium (8.6-10.3) mg/dL Total Bilirubin (0.3-1.0) mg/dL Direct Bilirubin (0.0-0.2) mg/dL Indirect Bilirubin (0.0-1.2) mg/dL AST (13-39) Units/L ALT (7-52) Units/L Alkaline Phosphatase (34-104) Units/L Serum Total Protein (6.4-8.9) g/dL Albumin (3.5-5.7) g/dL Globulin (2.4-3.5) g/dL Albumin/Globulin Ratio (1.1-2.2) Lipase (11-82) Units/L Urine Color Yellow (Yellow) Urine Clarity Clear (Clear) Urine pH 6.0 (5.0-8.0) pH Units Ur Specific Scribner 1.013 (1.010-1.025) Urine Protein Negative (Neg-Trace) mg/dL Urine Glucose (UA) Normal (Normal) mg/dL Urine Ketones Negative (Negative) mg/dL Urine Blood Small H (Negative) Urine Nitrite Negative (Negative) Urine Bilirubin Negative (Negative) Urine Urobilinogen Normal (Normal) mg/dL Ur Leukocyte Esterase Negative (Negative) Urine Microscopic RBC 0-3 (0-3) per hpf Urine Microscopic WBC 0-3 (0-3) per hpf Ur Squamous Epith Cells Few (None-Few) per lpf Urine Bacteria None Seen (None-Few) per hpf Hyaline Casts None Seen (None-Few) per lpf Ur Culture Indicated? NO (NO) Urine Test Negative (Negative) Stool Occult Blood (Negative) Blood Type Antibody Screen 11/15/17 11/15/17 11/15/17 Range/Units 15:27 15:27 15:27 WBC (4.3-11.1) K/mcL RBC (3.82-4.97) M/mcL Hgb (11.5-15.4) g/dL Hct (35.3-44.9) % MCV (83.0-100.0) fL MCH (28.0-33.3) pg MCHC (31.6-35.5) g/dL RDW (11.5-14.5) % Plt Count (140-400) K/mcL MPV (9.4-12.4) fL Immature Gran % (0-4) % Seg Neutrophils % % Lymphocytes % % Monocytes % % Eosinophils % % Basophils % % Neutrophils # (1.6-8.9) K/mcL Lymphocytes # (0.6-4.6) K/mcL Monocytes # (0.0-1.3) K/mcL Eosinophils # (0.0-0.6) K/mcL Basophils # (0.0-0.2) K/mcL Nucleated RBCs/100 WBC (0) /100 WBC PT 12.1 (9.4-12.1) Seconds INR 1.1 Sodium 139 (136-145) mEq/L Potassium 3.9 (3.5-5.1) mEq/L Chloride 110 H (98-107) mEq/L Carbon Dioxide 25 (23-29) mEq/L BUN 11 (6-20) mg/dL Creatinine 0.55 L (0.60-1.20) mg/dL Est GFR ( Amer) > 60 (> 60) Est GFR (Non-Af Amer) > 60 (> 60) BUN/Creatinine Ratio 20 (6-26) Glucose 88 (70-105) mg/dL Calculated Osmolality 287 (280-300) Calcium 9.3 (8.6-10.3) mg/dL Total Bilirubin 0.2 L (0.3-1.0) mg/dL Direct Bilirubin 0.0 (0.0-0.2) mg/dL Indirect Bilirubin 0.2 (0.0-1.2) mg/dL AST 16 (13-39) Units/L ALT 7 (7-52) Units/L Alkaline Phosphatase 84 (34-104) Units/L Serum Total Protein 7.4 (6.4-8.9) g/dL Albumin 4.2 (3.5-5.7) g/dL Globulin 3.2 (2.4-3.5) g/dL Albumin/Globulin Ratio 1.3 (1.1-2.2) Lipase 52 (11-82) Units/L Urine Color (Yellow) Urine Clarity (Clear) Urine pH (5.0-8.0) pH Units Ur Specific Scribner (1.010-1.025) Urine Protein (Neg-Trace) mg/dL Urine Glucose (UA) (Normal) mg/dL Urine Ketones (Negative) mg/dL Urine Blood (Negative) Urine Nitrite (Negative) Urine Bilirubin (Negative) Urine Urobilinogen (Normal) mg/dL Ur Leukocyte Esterase (Negative) Urine Microscopic RBC (0-3) per hpf Urine Microscopic WBC (0-3) per hpf Ur Squamous Epith Cells (None-Few) per lpf Urine Bacteria (None-Few) per hpf Hyaline Casts (None-Few) per lpf Ur Culture Indicated? (NO) Urine Test (Negative) Stool Occult Blood (Negative) Blood Type A POSITIVE Antibody Screen NEGATIVE 11/15/17 11/15/17 Range/Units 15:31 17:59 WBC (4.3-11.1) K/mcL RBC (3.82-4.97) M/mcL Hgb 12.2 (11.5-15.4) g/dL Hct 37.4 (35.3-44.9) % MCV (83.0-100.0) fL MCH (28.0-33.3) pg MCHC (31.6-35.5) g/dL RDW (11.5-14.5) % Plt Count (140-400) K/mcL MPV (9.4-12.4) fL Immature Gran % (0-4) % Seg Neutrophils % % Lymphocytes % % Monocytes % % Eosinophils % % Basophils % % Neutrophils # (1.6-8.9) K/mcL Lymphocytes # (0.6-4.6) K/mcL Monocytes # (0.0-1.3) K/mcL Eosinophils # (0.0-0.6) K/mcL Basophils # (0.0-0.2) K/mcL Nucleated RBCs/100 WBC (0) /100 WBC PT (9.4-12.1) Seconds INR Sodium (136-145) mEq/L Potassium (3.5-5.1) mEq/L Chloride (98-107) mEq/L Carbon Dioxide (23-29) mEq/L BUN (6-20) mg/dL Creatinine (0.60-1.20) mg/dL Est GFR ( Amer) (> 60) Est GFR (Non-Af Amer) (> 60) BUN/Creatinine Ratio (6-26) Glucose (70-105) mg/dL Calculated Osmolality (280-300) Calcium (8.6-10.3) mg/dL Total Bilirubin (0.3-1.0) mg/dL Direct Bilirubin (0.0-0.2) mg/dL Indirect Bilirubin (0.0-1.2) mg/dL AST (13-39) Units/L ALT (7-52) Units/L Alkaline Phosphatase (34-104) Units/L Serum Total Protein (6.4-8.9) g/dL Albumin (3.5-5.7) g/dL Globulin (2.4-3.5) g/dL Albumin/Globulin Ratio (1.1-2.2) Lipase (11-82) Units/L Urine Color (Yellow) Urine Clarity (Clear) Urine pH (5.0-8.0) pH Units Ur Specific Scribner (1.010-1.025) Urine Protein (Neg-Trace) mg/dL Urine Glucose (UA) (Normal) mg/dL Urine Ketones (Negative) mg/dL Urine Blood (Negative) Urine Nitrite (Negative) Urine Bilirubin (Negative) Urine Urobilinogen (Normal) mg/dL Ur Leukocyte Esterase (Negative) Urine Microscopic RBC (0-3) per hpf Urine Microscopic WBC (0-3) per hpf Ur Squamous Epith Cells (None-Few) per lpf Urine Bacteria (None-Few) per hpf Hyaline Casts (None-Few) per lpf Ur Culture Indicated? (NO) Urine Test (Negative) Stool Occult Blood Positive A (Negative) Blood Type Antibody Screen - Radiology Data Radiology results reviewed: Yes I reviewed the patient's radiology results. Abdomen/Pelvis CT 11/15/17 15:35 IMPRESSION: No acute finding in the abdomen or pelvis. Specifically, there are no findings to suggest acute or chronic pancreatitis. Mild thickening of the wall of the urinary bladder versus underdistention. Mild bibasilar ground-glass opacity, likely atelectasis. D/ / Hussain Varela MD / Hussain Varela MD Interpreting Provider: Hussain Varela MD S.B.A.R. - S.B.A.R. Situation: Demographics Background: Presenting Complaint Assessment: Vital Signs, Course and respsone to treatment, Patient/Family Expectation Recommendation: Barrier(s) to disposition, Recommendation based on pending studies, treatments, or consults Tahir Report Given to: Dr. Melania Haro Repor Time: 18:44
[2017-11-15 15:44] LABS: Basophils % 0.3 %; Eosinophils # 0.1 K/mcL (0.0-0.6); Hematocrit 40.9 % (35.3-44.9); Hemoglobin 13.6 g/dL (11.5-15.4); Immature Granulocytes % 0.2 % (0-4); Lymphocytes # 2.9 K/mcL (0.6-4.6); Lymphocytes % 32.9 %; Mean Corpuscular HGB Conc 33.3 g/dL (31.6-35.5); Mean Corpuscular Hemoglobin 29.7 pg (28.0-33.3); Mean Corpuscular Volume 89.3 fL (83.0-100.0); Mean Platelet Volume 9.5 fL (9.4-12.4); Monocytes # 0.5 K/mcL (0.0-1.3); Monocytes % 5.6 %; Neutrophils # 5.2 K/mcL (1.6-8.9); Nucleated Red Blood Cells 0.2 /100 WBC (0); Platelet Count 236 K/mcL (140-400); Red Blood Count 4.58 M/mcL (3.82-4.97); Red Cell Distribution Width 13.2 % (11.5-14.5)
[2017-11-15 15:50] LABS: INR 1.1; Prothrombin Time 12.1 Seconds (9.4-12.1)
[2017-11-15 16:12] LABS: Alanine Aminotransferase 7 Units/L (7-52); Albumin 4.2 g/dL (3.5-5.7); Albumin/Globulin Ratio 1.3 (1.1-2.2); Alkaline Phosphatase 84 Units/L (34-104); Aspartate Amino Transferase 16 Units/L (13-39); BUN/Creatinine Ratio 20 (6-26); Bilirubin,Indirect 0.2 mg/dL (0.0-1.2); Bilirubin,Total 0.2 mg/dL (0.3-1.0); Blood Urea Nitrogen 11 mg/dL (6-20); Calcium 9.3 mg/dL (8.6-10.3); Carbon Dioxide 25 mEq/L (23-29); Chloride 110 mEq/L (98-107); Globulin 3.2 g/dL (2.4-3.5); Glucose 88 mg/dL (70-105); Lipase 52 Units/L (11-82); Osmolality,Calculated 287 (280-300); Potassium 3.9 mEq/L (3.5-5.1); Sodium 139 mEq/L (136-145); Total Protein 7.4 g/dL (6.4-8.9); eGFR For African Americans > 60 (> 60); eGFR For Non-African Americans > 60 (> 60)
[2017-11-15] MEDS ORDERED: Ketamine *HR* 15 MG in 0.9 % Sodium Chloride 100 ML IV ONE (16:15)
[2017-11-15] MEDS ORDERED: *HR* FentaNYL (PF) 100 MCG/2 ML VIAL IVP ONE (17:48)
[2017-11-15 18:06] LABS: Hematocrit 37.4 % (35.3-44.9); Hemoglobin 12.2 g/dL (11.5-15.4)
[2017-11-15] MEDS ORDERED: Pantoprazole 80 MG in 0.9 % Sodium Chloride 50 ML IVPB ONE (18:28)
[2017-11-15] MEDS ORDERED: Ondansetron 4 MG/2 ML VIAL IVP ONE (19:12)
[2017-11-15] MEDS ORDERED: Loratadine 10 MG TABLET PO PRN (20:40)
[2017-11-15] MEDS ORDERED: Sennosides/Docusate Sodium TABLET PO PRN (20:40)
[2017-11-15] MEDS ORDERED: (Linaclotide [Linzess] 290 MCG) PO PRN (20:40)
[2017-11-15] MEDS ORDERED: Naloxone 0.4 MG/ML INJ IVP PRN (20:43)
--- NOTE | 2017-11-15 20:49 | Internal Med History&Physical ---
Date of Encounter: 11/15/17 Time of Encounter: 20:47 Assessment and Plan (1) Hematochezia Current visit: No Status: Acute trend H&H, clears for now, discussed case with Dr Lin , will see in a.m close monitoring for further bleeding in the morning (2) DVT (deep venous thrombosis) Current visit: Yes Status: Acute hold xarelto due to bleeding Qualifiers: DVT location: upper extremity Laterality: right Qualified Code(s): I82.621 - Acute embolism and thrombosis of deep veins of right upper extremity (3) Chronic pancreatitis Current visit: No Status: Chronic continue creon - idiopathic Qualifiers: Pancreatitis type: idiopathic Qualified Code(s): K86.1 - Other chronic pancreatitis (4) COPD (chronic obstructive pulmonary disease) Current visit: No Status: Chronic stable, continue home med Qualifiers: COPD type: emphysema Emphysema type: unspecified Qualified Code(s): J43.9 - Emphysema, unspecified Internal Medicine - H&P: HPI Chief complaint: BRBPR History of present illness: Ms. Dougherty is a 42 year old female with hx of chronic pancreatitis, diverticular disease, recent RUE blood clot sep 2017 on xarelto who presents with 3 days hx of intermittent hematochezia. 3 days of BRBPR, initially mixed in the stool but later just blood w/o ann. No clots associated. Occurring approx 9 x since onset 3 days ago. Associated with LLQ discomfort, 7/10, sharp, crampy in quality. Has hx of prior bleeding similar to this in the past and resolved with conservative management. Known to Dr Lin. CT/CT abd pelvis w iv no oral IMPRESSION: No acute finding in the abdomen or pelvis. Specifically, there are no findings to suggest acute or chronic pancreatitis. Mild thickening of the wall of the urinary bladder versus underdistention. Mild bibasilar ground-glass opacity, likely atelectasis. Past Med Surg Social Fam HX - Past Medical History Medical history: asthma, COPD, other Psychiatric history: anxiety - Past Surgical History Surgical History: cholecystectomy, orthopedic, other, CAM/BSO - Social History Smoking Status: Current every day smoker Packs per day: 1.5 Smokeless Tobacco Status: No Alcohol use: none Drug use: none - Family History Mother Family Member Ethnicity: Non- Living Status: Still Living Hx Family Cardiac Disorders: Yes (open heart, HTN) Hx Family Endocrine Disorder: Yes (DM) Maternal Grandmother Family Member Ethnicity: Non- Living Status: Hx Family Cardiac Disorders: Yes (breat, colon, stomach) Hx Family Cancer: Yes (Breast, colon, stomach) Internal Medicine - H&P: Meds Albuterol Sulfate [Proair Hfa] 2 puff IH Q4H PRN 11/23/16 [History] EPINEPHrine [Epipen] 0.3 mg IM ONCE PRN 11/23/16 [History] LORazepam [Ativan] 0.5 mg PO BID PRN 11/23/16 [History] Linaclotide [Linzess] 290 mcg PO DAILY PRN 11/23/16 [History] Amitriptyline [Elavil] 10 mg PO HS 11/15/17 [History] Lipase/Protease/Amylase [Creon Dr 12,000 Units Capsule] 12,000 unit PO TIDWM 05/25 [History] Loratadine [Claritin] 10 mg PO DAILY PRN 11/15/17 [History] Oxygen 2 - 3 l NS HS 11/15/17 [History] Pantoprazole Sodium [Protonix] 40 mg PO BID 11/15/17 [History] Promethazine [Phenergan] 25 mg PO BID PRN 11/15/17 [History] Rivaroxaban [Xarelto] 20 mg PO DAILY 11/15/17 [History] Sennosides/Docusate Sodium [Senna Plus] 1 each PO BID PRN 11/15/17 [History] 3 Allergy/AdvReac Type Severity Reaction Status Date / Time acetaminophen [From Vicodin] Allergy Hives Verified 09/13/17 16:08 amylase [From Pancreaze] Allergy Hives Verified 09/13/17 16:08 hydrocodone [From Vicodin] Allergy Hives Verified 09/13/17 16:08 lipase [From Pancreaze] Allergy Hives Verified 09/13/17 16:08 nitrofurantoin Allergy Anaphylaxis Verified 09/13/17 16:08 [From Macrodantin] Pneumococcal Vaccine Allergy See Verified 11/15/17 14:17 Comments protease [From Pancreaze] Allergy Hives Verified 09/13/17 16:08 All Systems PM: A 10-system review of systems was performed and is negative for pertinent findings except as documented above in the HPI. Review of systems: ROS 14 point review of systems reviewed as best as possible given presentation. Pertinent positive or negative as per HPI or otherwise reviewed as negative - Constitutional Vitals: Temp Pulse Resp BP Pulse Ox 98.3 F 88 16 111/69 97 11/15/17 14:15 11/15/17 19:43 11/15/17 19:48 11/15/17 19:48 11/15/17 19:43 Exam: General - AAO x 3 Psych - Appropriate affect/speech. No agitation Eyes - LEONIE. Eye lids intact. No scleral icterus Neuro - No gross peripheral or central neuro deficits with intact CN 2-12 exam on inspection Heart - Sinus. RRR. S1 and S2 present. No added HS/murmurs appreciated. No elevated JVD appreciated. Lung - Adequate air entry b/l, No crackles/wheezes appreciated GI - LLQ discomfort but otherwise soft, no G/R. No hepatosplenomegaly/ascites. BS+ - No CVA/suprapubic tenderness or palpable bladder distension Skin - Intact. No rash/petechiae/ecchymosis. Warm extremities Internal Med - H&P Results - Labs CBC & Chem 7: 11/15/17 17:59 11/15/17 15:27
[2017-11-15] MEDS: Ringers Solution, Lactated 1,000 ML IVC SCH (21:27)
[2017-11-15 21:47] LABS: Hematocrit 37.3 % (35.3-44.9); Hemoglobin 12.7 g/dL (11.5-15.4)
[2017-11-15] MEDS: *HR* LORazepam 0.5 MG TABLET PO PRN (23:05)
[2017-11-16] MEDS: *HR* Morphine Soln 10 MG/5 ML UDC PO PRN ×3 (00:26→19:32)
[2017-11-16] MEDS: Ondansetron 4 MG/2 ML VIAL IVP PRN ×3 (03:53→22:25)
[2017-11-16 05:19] LABS: Hematocrit 36.7 % (35.3-44.9); Hemoglobin 11.8 g/dL (11.5-15.4)
[2017-11-16] MEDS ORDERED: Ketorolac 30 MG/ML VIAL IVP PRN (06:34)
[2017-11-16] MEDS: Nicotine 21 MG PATCH.TD24 TD SCH ×2 (07:52→08:27)
[2017-11-16] MEDS: Ringers Solution, Lactated 1,000 ML IVC SCH (08:26)
[2017-11-16] MEDS: *HR* LORazepam 0.5 MG TABLET PO PRN ×2 (08:28→20:19)
--- NOTE | 2017-11-16 09:51 | Anesthesia Evaluation PreOp ---
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: Other (Anxiety/Depression) Other Medical History: Bleeding (Current [09/2017]RUE DVT managed on Lovenox, held x 3 days), GERD, Other (Chronic Pancreatitis, Hx of diverticular dz) Anesthesia History: No Prior Anesthetic Complications, Past Anesthesia (Sheryl, CAM/BSO, Orthopedic) Alcohol Use: none Drug use: none Medications and Allergies Albuterol Sulfate [Proair Hfa] 2 puff IH Q4H PRN 11/23/16 [History] EPINEPHrine [Epipen] 0.3 mg IM ONCE PRN 11/23/16 [History] LORazepam [Ativan] 0.5 mg PO BID PRN 11/23/16 [History] Linaclotide [Linzess] 290 mcg PO DAILY PRN 11/23/16 [History] Amitriptyline [Elavil] 10 mg PO HS 11/15/17 [History] Lipase/Protease/Amylase [Creon Dr 12,000 Units Capsule] 12,000 unit PO TIDWM 05/25 [History] Loratadine [Claritin] 10 mg PO DAILY PRN 11/15/17 [History] Oxygen 2 - 3 l NS HS 11/15/17 [History] Pantoprazole Sodium [Protonix] 40 mg PO BID 11/15/17 [History] Promethazine [Phenergan] 25 mg PO BID PRN 11/15/17 [History] Rivaroxaban [Xarelto] 20 mg PO DAILY 11/15/17 [History] Sennosides/Docusate Sodium [Senna Plus] 1 each PO BID PRN 11/15/17 [History] 3 Allergy/AdvReac Type Severity Reaction Status Date / Time acetaminophen [From Vicodin] Allergy Hives Verified 09/13/17 16:08 amylase [From Pancreaze] Allergy Hives Verified 09/13/17 16:08 hydrocodone [From Vicodin] Allergy Hives Verified 09/13/17 16:08 lipase [From Pancreaze] Allergy Hives Verified 09/13/17 16:08 nitrofurantoin Allergy Anaphylaxis Verified 12/07/17 16:08 [From Macrodantin] Pneumococcal Vaccine Allergy See Verified 11/15/17 14:17 Comments protease [From Pancreaze] Allergy Hives Verified 09/13/17 16:08 - Meds/Allergy Pre-op Review Medications Reviewed: Yes Allergies Reviewed: Yes Beta Blockers on Current Med List: No Anesthesia Results - Labs 11/16/17 04:14 11/15/17 15:27 Vital Signs Intake and Output Laboratory Results WBC 8.7 K/mcL (4.3-11.1) 11/15/17 15:27 RBC 4.58 M/mcL (3.82-4.97) 11/15/17 15:27 Hgb 11.8 g/dL (11.5-15.4) 11/16/17 04:14 Hct 36.7 % (35.3-44.9) 11/16/17 04:14 MCV 89.3 fL (83.0-100.0) 11/15/17 15:27 MCH 29.7 pg (28.0-33.3) 11/15/17 15:27 MCHC 33.3 g/dL (31.6-35.5) 11/15/17 15:27 RDW 13.2 % (11.5-14.5) 11/15/17 15:27 Plt Count 236 K/mcL (140-400) 11/15/17 15:27 MPV 9.5 fL (9.4-12.4) 11/15/17 15:27 Immature Gran % 0.2 % (0-4) 11/15/17 15: Seg Neutrophils % 60.0 % 11/15/17 15:27 Lymphocytes % 32.9 % 11/15/17 15:27 Monocytes % 5.6 % 11/15/17 15:27 Eosinophils % 1.0 % 11/15/17 15:27 Basophils % 0.3 % 11/15/17 15:27 Neutrophils # 5.2 K/mcL (1.6-8.9) 11/15/17 15:27 Lymphocytes # 2.9 K/mcL (0.6-4.6) 11/15/17 15:27 Monocytes # 0.5 K/mcL (0.0-1.3) 11/15/17 15:27 Eosinophils # 0.1 K/mcL (0.0-0.6) 11/15/17 15: Basophils # 0.0 K/mcL (0.0-0.2) 11/15/17 15:27 Nucleated RBCs/100 WBC 0.2 /100 WBC (0) H 11/15/17 15:27 PT 12.1 Seconds (9.4-12.1) 11/15/17 15: INR 1.1 11/15/17 15:27 Sodium 139 mEq/L (136-145) 11/15/17 15: Potassium 3.9 mEq/L (3.5-5.1) 11/15/17 15: Chloride 110 mEq/L (98-107) H 11/15/17 15: Carbon Dioxide 25 mEq/L (23-29) 11/15/17 15: BUN 11 mg/dL (6-20) 11/15/17 15: Creatinine 0.55 mg/dL (0.60-1.20) L 11/15/17 15: Est GFR ( Amer) > 60 (> 60) 11/15/17 15: Est GFR (Non-Af Amer) > 60 (> 60) 11/15/17 15: BUN/Creatinine Ratio 20 (6-26) 11/15/17 15: Glucose 88 mg/dL (70-105) 11/15/17 15: Calculated Osmolality 287 (280-300) 11/15/17 15: Calcium 9.3 mg/dL (8.6-10.3) 11/15/17 15: Total Bilirubin 0.2 mg/dL (0.3-1.0) L 11/15/17 15: Direct Bilirubin 0.0 mg/dL (0.0-0.2) 11/15/17 15: Indirect Bilirubin 0.2 mg/dL (0.0-1.2) 11/15/17 15: AST 16 Units/L (13-39) 11/15/17 15: ALT 7 Units/L (7-52) 11/15/17 15: Alkaline Phosphatase 84 Units/L (34-104) 11/15/17 15: Serum Total Protein 7.4 g/dL (6.4-8.9) 11/15/17 15: Albumin 4.2 g/dL (3.5-5.7) 11/15/17 15:27 Globulin 3.2 g/dL (2.4-3.5) 11/15/17 15:27 Albumin/Globulin Ratio 1.3 (1.1-2.2) 11/15/17 15:27 Lipase 52 Units/L (11-82) 11/15/17 15:27 Urine Color Yellow (Yellow) 11/15/17 14:23 Urine Clarity Clear (Clear) 11/15/17 14:23 Urine pH 6.0 pH Units (5.0-8.0) 11/15/17 14:23 Ur Specific [place] 1.013 (1.010-1.025) 11/15/17 14:23 Urine Protein Negative mg/dL (Neg-Trace) 11/15/17 14:23 Urine Glucose (UA) Normal mg/dL (Normal) 11/15/17 14:23 Urine Ketones Negative mg/dL (Negative) 11/15/17 14:23 Urine Blood Small (Negative) H 11/15/17 14:23 Urine Nitrite Negative (Negative) 11/15/17 14:23 Urine Bilirubin Negative (Negative) 11/15/17 14:23 Urine Urobilinogen Normal mg/dL (Normal) 11/15/17 14:23 Ur Leukocyte Esterase Negative (Negative) 11/15/17 14:23 Urine Microscopic RBC 0-3 per hpf (0-3) 11/15/17 14:23 Urine Microscopic WBC 0-3 per hpf (0-3) 11/15/17 14:23 Ur Squamous Epith Cells Few per lpf (None-Few) 11/15/17 14:23 Urine Bacteria None Seen per hpf (None-Few) 11/15/17 14:23 Hyaline Casts None Seen per lpf (None-Few) 11/15/17 14:23 Ur Culture Indicated? NO (NO) 11/15/17 14:23 Urine Test Negative (Negative) 11/15/17 14:23 Stool Occult Blood Positive (Negative) A 11/15/17 15:31 Blood Type A POSITIVE 11/15/17 15:27 Antibody Screen NEGATIVE 11/15/17 15:27 Impressions Abdomen/Pelvis CT 11/15/17 15:35 IMPRESSION: No acute finding in the abdomen or pelvis. Specifically, there are no findings to suggest acute or chronic pancreatitis. Mild thickening of the wall of the urinary bladder versus underdistention. Mild bibasilar ground-glass opacity, likely atelectasis. D/ / Hussain Varela MD / Hussain Varela MD Interpreting Provider: Hussain Varela MD Anesthesia Exam Vital Signs Temp Pulse Resp BP Pulse Ox 11/16/17 09:33 98.2 F 76 16 109/70 93 11/16/17 06:45 97.9 F 72 16 92/60 93 11/16/17 05:08 97.9 F 69 15 129/94 98 11/16/17 00:39 98.1 F 70 15 120/80 97 11/15/17 21:21 98.0 F 72 15 123/77 96 11/15/17 20:11 96 11/15/17 19:48 16 111/69 11/15/17 19:43 88 16 111/69 97 11/15/17 14:15 98.3 F 91 16 123/81 99 Intake and Output 11/15/17 11/16/17 11/16/17 23:59 07:59 15:59 Intake Total 390.3 / 390.3 1180 / 1180 Output Total 0 / 0 625 / 625 Balance 390.3 / 390.3 555 / 555 Intake: IV Fluids 150.3 / 150.3 1000 / 1000 Ketamine 15 MG In 0.9 % Sodium 100.3 / 100.3 Chloride 100 ML @ 240.72 mls/hr IV .Q25M ONE Rx#:[id number] Lactated Ringers 1,000 ML @ 100 1000 / 1000 mls/hr IVC .Q10H SEFERINO Rx#: [id number] Protonix 80 MG In 0.9 % Sodium 50 / 50 Chloride 50 ML @ 600 mls/hr IVPB ONCE ONE Rx#:[id number] Oral 240 / 240 180 / 180 Output: Urine 0 / 0 625 / 625 Other: Meal snack Percent of Meal Consumed 100% # Voids 1 Weight 61.235 kg - HEENT Pupil (Motor): Pupils equal, EOMI Mallampati: II Teeth: Normal (Fair dentition) Oral Opening: Greater than 3 - OPERATOR ENGINEER LOC: Oriented OPERATOR ENGINEER Motor: Normal RUE, Normal LUE, Normal RLE, Normal LLE, Normal Face OPERATOR ENGINEER Sensory: Normal: RUE, LUE, RLE, LLE, Face - Cardiac Rhythm: Regular Murmur: None - Pulmonary Breath Sounds: bilateral Clear Anesthesia Assess/Plan ASA Score: 3 (Chronic pancreatitis, Smoker, COPD, Anxiety/Depression, GIB, IBS) Modified [place] Scale for Level of Consciousness: Cooperative, oriented, and tranquil Anesthetic Plan: MAC Monitoring Plan: Standard Monitors Recovery Plan: Other Anes Supervising Prov Stmt: PT seen/evaluated, R&B Discussed, questions answered and consent obtained. Bubba Ahumada MD
[2017-11-16] MEDS ORDERED: Tetracaine/Benzocaine/Butamben 200MG/SPRAY (100SPY/BOT) MM ONE (09:57)
[2017-11-16] MEDS ORDERED: SODIUM CHLORIDE/NAHCO3/KCL/PEG 4,000 ML SOLN.RECON PO ONE (10:09)
[2017-11-16 11:02] LABS: Hematocrit 35.3 % (35.3-44.9); Hemoglobin 11.7 g/dL (11.5-15.4)
--- NOTE | 2017-11-16 11:20 | Internal Med Progress Note ---
<Abhijit Saldaña - Last Filed: 11/16/17 13:40> Date of Encounter: 11/16/17 Time of Encounter: 13:30 - Assessment and plan (1) GI bleed Current Visit: Yes Status: Acute Assessment and plan: 42F with history of diverticulitis and reported history of chronic pancreatitis on medications present for evaluation of blood in stool. Symptoms started 3 days ago. Reports noticing dark and bright red blood with multiple BMs. FOBT + CBC, CMP WNL. H/H stable (11.7<12.7). GI consult and recommendations appreciated. EGD demonstrates esophagitis without bleed, suspicious Schwartz's pending biopsy, gastroparesis, no acute bleed. Plan for colonoscopy tomorrow, bowel prep tonight. Clear liquids for now , NPO after midnight. Continue with lactated ringer and pain management as needed. Qualifiers: GI bleed type/associated pathology: unspecified gastrointestinal hemorrhage type Qualified Code(s): K92.2 - Gastrointestinal hemorrhage, unspecified (2) Chronic pancreatitis Current Visit: No Status: Chronic Assessment and plan: CT abd/pelvis demonstrates no acute finding in the abdomen or pelvis. There are no signs of acute or chronic pancreatitis. Mild thickening of the wall of the urinary bladder noted. No acute intervention needed at this time. Continue home medications per patient's request and follow-up outpatient Qualifiers: Pancreatitis type: idiopathic Qualified Code(s): K86.1 - Other chronic pancreatitis (3) Nausea & vomiting Current Visit: No Status: Acute Assessment and plan: Likely secondary to gastroparesis and gastritis demonstrated on EGD. Continue with Zofran. Qualifiers: Vomiting type: unspecified Vomiting Intractability: non-intractable Qualified Code(s): R11.2 - Nausea with vomiting, unspecified (4) Abdominal pain Current Visit: Yes Status: Acute Assessment and plan: Abdominal pain secondary to gastritis vs GIB. No acute bleeds demonstrated on EGD. Pending colonoscopy tomorrow. Continue with pain management. Qualifiers: Abdominal location: unspecified location Qualified Code(s): R10.9 - Unspecified abdominal pain (5) History of DVT (deep vein thrombosis) Current Visit: Yes Status: Acute Assessment and plan: Patient reports history of Right upper extremity DVT on September 2017 currently on Xeralto. Hold anticoagulation for now due to acute GIB. SCDs for DVT prophylaxis. - Time Spent With Patient Greater than 35 minutes - Subjective Interval history: 42F with PMHx of COPD, chronic pancreatitis, diverticulitis, history of right upper extremity DVT on Xeralto presented to ED for evaluation of red blood in her stool for 3 days. She reports that she has noted dark and bright blood on multiple BMs. Denies history of hemorroids, constipation, but does admit to IBS. She also notes Left sided abdominal pain and epigastric pain for the last 3 days. On admission, she admits to dizziness and lightheadedness that have since resolved. She denies vaginal bleeding or any active bleeding. She denies fevers, chills, chest pain, cough, breath. Reports 1 episode of loose bloody stool today. Currently on clear liquids. - Constitutional Vitals: Temp Pulse Resp BP Pulse Ox 98.0 F 81 14 90/59 93 11/16/17 10:27 11/16/17 10:27 11/16/17 10:27 11/16/17 10:27 11/16/17 10:27 - Head Head exam: Present: atraumatic, normocephalic - Eye Eye exam: Present: PERRL, conjuntiva pink, sclera anicteric Pupils: Present: PERRL - Neck Neck exam general surgery: Present: supple, trachea midline. Absent: lymphadenopathy - Respiratory Respiratory exam: Present: CTAB. Absent: accessory muscle use, rales, rhonchi, wheezes - Cardiovascular Cardiovascular exam: Present: RRR, +S1, +S2. Absent: diastolic murmur, gallop, rubs, systolic murmur - GI/Abdominal GI/Abdominal exam: Present: distended, normal bowel sounds, soft, no peritoneal signs. Absent: tenderness Additional comments: Tender to light palpation - Extremities Exam Extremities exam: Present: warm, radial pulses palpable and symmetrical. Absent : calf tenderness, cyanotic, pedal edema - Neurological Exam Neurological exam: Present: CN II-XII intact, oriented X3, no focal deficits. Absent: pronater drift, facial droop, speech deficit - Skin Skin exam: Present: dry, intact Internal Medicine: Result - Labs CBC & Chem 7: 11/16/17 10:45 11/15/17 15:27 Labs: Short CBC 11/15/17 11/16/17 11/16/17 Range/Units 21:33 04:14 10:45 Hgb 12.7 11.8 11.7 (11.5-15.4) g/dL Hct 37.3 36.7 35.3 (35.3-44.9) % - ABG Interpretation ABG results: PT/INR, D-dimer PT 12.1 Seconds (9.4-12.1) 11/15/17 15:27 Consult Discharge Plan - Plan Referrals: Peggy Richardson, SCHOOL PSYCHOLOGY PROFESSOR [Primary Care Provider] - <Jasmeet Silver - Last Filed: 11/16/17 14:41> Date of Encounter: 11/16/17 - Constitutional Vitals: Temp Pulse Resp BP Pulse Ox 98.0 F 81 14 90/59 93 11/16/17 10:27 11/16/17 10:27 11/16/17 10:27 11/16/17 10:27 11/16/17 10:27 Internal Medicine: Result - Labs CBC & Chem 7: 11/16/17 10:45 11/15/17 15:27 Labs: Short CBC 11/15/17 11/16/17 11/16/17 Range/Units 21:33 04:14 10:45 Hgb 12.7 11.8 11.7 (11.5-15.4) g/dL Hct 37.3 36.7 35.3 (35.3-44.9) % - ABG Interpretation ABG results: PT/INR, D-dimer PT 12.1 Seconds (9.4-12.1) 11/15/17 15:27 - Attending Attestation I examined this patient and my medical decision-making was reviewed with the Resident Physician. I agree with the documented findings, disposition and treatment plan as described except to the extent set forth below. Patient who is being managed for suspected LGIB She is on Xarelto for DVT EGD is negative for acute bleed HB has been stable For colonoscopy am GI eval noted Continues to complain of abdominal pain, no organic cause, reassure and continue home meds Rest as in resident physician's documentation
--- NOTE | 2017-11-16 14:16 | Gastroenterology Consult Note ---
<Guerita Ardon - Last Filed: 11/16/17 14:11> Date of Encounter: 11/16/17 Time of Encounter: 09:30 - Assessment and plan (1) Chronic pancreatitis Status: Chronic Assessment and plan: Pt has chronic pancreatitis. She presented withepigastric abdominal pain and intractable nausea and vomiting. She reported bright red rectal bleeding. Hemoglobin is 11.8 LFTs are within normal limits lipase was 52. Qualifiers: Pancreatitis type: idiopathic Qualified Code(s): K86.1 - Other chronic pancreatitis (2) Epigastric abdominal pain Status: Acute Assessment and plan: EGD this morning showed possible Schwartz's esophagus esophagitis gastritis and gastroparesis. Continue PPI, clear liquids today will advance as tolerated after colonoscopy tomorrow. (3) Hematochezia Status: Acute Assessment and plan: we will plan for colonoscopy tomorrow. - Time Spent With Patient Total time spent is greater than 50% in coordination of care (as documented) at patient's floor/unit and/or counseling patient: GI History of Present Illness - Data of Consult Patient: known to practice within the last 3 years Consult date: 11/16/17 Requesting Physician: Jasmeet Silver MD - Consult Narrative Reason for consult: abdominal pain, rectal bleeding History of present illness: Ms. Dougherty is a 42-year-old female who has a past medical history chronic pancreatitis, diverticular disease, right upper extremity blood clot in September 2017 is on xarelto. She presented with a three-day history of intermittent bright red rectal bleeding initially mixed in stool but later just blood. She reports 9 episodes of rectal bleeding over the course of 3 days. She also complains of left lower quadrant pain 7 out of 10. She has a history of GI bleeding in the past. She is known to Dr. Lin who has been treated for chronic pancreatitis. She was referred to [facility] for pain management. She has chronic nausea and vomiting and increased left-sided abdominal pain. She reports that she had an EUS at [facility] in September. On admission her hemoglobin was 12.7 has dropped to 11.8. Lipase 52. LFTs were within normal limits. Colonoscopy in June 2015 Dr. Phillips showed normal colon few small mouth diverticula suggested repeat colonoscopy in 10 years. EGD this morning by Dr. Garcia showed low grade a reflux esophagitis, esophageal changes suspicious for short segment Schwartz's esophagitis, gastritis, gastroparesis NSAIDS: denies anticoagulants: xarelto Past Med Surg Social Fam HX - Past Medical History Medical history: asthma, COPD, other Psychiatric history: anxiety - Past Surgical History Surgical History: cholecystectomy, orthopedic, other, CAM/BSO - Social History Smoking Status: Current every day smoker Packs per day: 1.5 Smokeless Tobacco Status: No Alcohol use: none Drug use: none - Family History Mother Family Member Ethnicity: Non- Living Status: Still Living Hx Family Cardiac Disorders: Yes (open heart, HTN) Hx Family Endocrine Disorder: Yes (DM) Maternal Grandmother Family Member Ethnicity: Non- Living Status: Hx Family Cardiac Disorders: Yes (breat, colon, stomach) Hx Family Cancer: Yes (Breast, colon, stomach) Review of Systems: GI: as per OHKAY OWINGEH GENERAL: denies fever, has some chills EYES: denies yellow discoloration ENT: denies pain with swallowing or difficulty swallowing CARDIO: chest pain, denies palpitations RESP: No Shortness of breath with exertion : denies change in color of urine NEURO: weakness HEME: Denies any bruising MS: chronic joint pain, joint swelling or back pain. DERM: denies rash or itching PSYCH: history of anxiety or depression - Constitutional Vitals: Temp Pulse Resp BP Pulse Ox 98.0 F 81 14 90/59 93 11/16/17 10:27 11/16/17 10:27 11/16/17 10:27 11/16/17 10:27 11/16/17 10:27 Exam: CONSTITUTIONAL:~alert, no acute distress.~HEAD:~normocephalic.~EYES:~no jaundice.~NECK:~no obvious swelling.~HEART:~regular rate and rhythm, no murmurs. ~LUNGS:~bilateral good air entry.~ABDOMEN:~non distended, soft, diffusely tender , no masses palpable, no organomegaly.~RECTAL EXAM:~Deferred.~EXTREMITIES:~no clubbing, cyanosis or edema.~SKIN:~no stigmata of chronic liver disease.~ NEUROLOGIC:~no obvious focal defect.~~~~ Results - Labs CBC & Chem 7: 11/16/17 10:45 11/15/17 15:27 Labs: Last Result Calcium 9.3 mg/dL (8.6-10.3) 11/15/17 15:27 Stool Occult Blood Positive (Negative) A 11/15/17 15:31 Entire Visit Hgb 11.7 g/dL (11.5-15.4) 11/16/17 10:45 Hct 35.3 % (35.3-44.9) 11/16/17 10:45 PT 12.1 Seconds (9.4-12.1) 11/15/17 15:27 Total Bilirubin 0.2 mg/dL (0.3-1.0) L 11/15/17 15:27 AST 16 Units/L (13-39) 11/15/17 15:27 ALT 7 Units/L (7-52) 11/15/17 15: Lipase 52 Units/L (11-82) 11/15/17 15:27 - ABG ABG results: PT/INR, D-dimer PT 12.1 Seconds (9.4-12.1) 11/15/17 15:27 Consult Discharge Plan - Plan Instructions: Colonoscopy (DC), Colonoscopy (GEN) Referrals: Peggy Richardson, TECHNICIAN [Primary Care Provider] - <Omari Garcia - Last Filed: 11/19/17 09:40> Date of Encounter: 11/16/17 - Time Spent With Patient Total time spent is greater than 50% in coordination of care (as documented) at patient's floor/unit and/or counseling patient: GI History of Present Illness - Data of Consult Requesting Physician: Jasmeet Silver MD - Consult Narrative History of present illness: Ms. Dougherty is a 42 year old female - Constitutional Vitals: Temp Pulse Resp BP Pulse Ox 98.1 F 103 17 165/84 91 11/17/17 19:36 11/17/17 19:36 11/17/17 19:36 11/17/17 19:36 11/17/17 19:36 Results - Labs CBC & Chem 7: 11/16/17 10:45 11/15/17 15:27 Labs: Last Result Calcium 9.3 mg/dL (8.6-10.3) 11/15/17 15:27 Stool Occult Blood Positive (Negative) A 11/15/17 15:31 Entire Visit Hgb 11.7 g/dL (11.5-15.4) 11/16/17 10:45 Hct 35.3 % (35.3-44.9) 11/16/17 10:45 PT 12.1 Seconds (9.4-12.1) 11/15/17 15:27 Total Bilirubin 0.2 mg/dL (0.3-1.0) L 11/15/17 15:27 AST 16 Units/L (13-39) 11/15/17 15:27 ALT 7 Units/L (7-52) 11/15/17 15:27 Lipase 52 Units/L (11-82) 11/15/17 15:27 - ABG ABG results: PT/INR, D-dimer PT 12.1 Seconds (9.4-12.1) 11/15/17 15:27 - Attending Attestation Patient admitted with burgundy BMs and melena. Had been to the [facility] very recently and underwent celiac block via EUS. Pain relief lasted about 3 days per patient. Has chronic pancreatitis - etiology unclear at this point. Plan EGD and colonoscopy to determine etiology of bleeding. Differential wide. I have personally performed a face to face evaluation on this patient. I have reviewed and agree with the care plan. History and Exam by me shows:
[2017-11-16] MEDS ORDERED: Ketorolac 15 MG/ML VIAL IVP PRN ×2 (19:35→19:51)
[2017-11-16] MEDS ORDERED: *HR* Morphine Soln 10 MG/5 ML UDC PO PRN (20:27)
[2017-11-16] MEDS ORDERED: MORPHINE SUL Oral CONC 10 MG/0.5 ML ORAL.SYG SL ONE (23:02)
[2017-11-17] MEDS ORDERED: MORPHINE SUL Oral CONC 10 MG/0.5 ML ORAL.SYG SL PRN (03:30)
[2017-11-17] MEDS: Ondansetron 4 MG/2 ML VIAL IVP PRN (04:25)
--- NOTE | 2017-11-17 07:13 | Anesthesia Evaluation PreOp ---
Date of Encounter: 11/17/17 Time of Encounter: 07:30 - Past History Planned Operation: Colonoscopy Cardiac History: Denies any Significant Hx Pulmonary History: Smoker, COPD ETYMOLOGY TEACHER History: Denies Any Significant HX Other Medical History: Other (Chronic Pancreatitis) Anesthesia History: No Prior Anesthetic Complications : No Alcohol Use: none Drug use: none Medications and Allergies Albuterol Sulfate [Proair Hfa] 2 puff IH Q4H PRN 11/23/16 [History] EPINEPHrine [Epipen] 0.3 mg IM ONCE PRN 11/23/16 [History] LORazepam [Ativan] 0.5 mg PO BID PRN 11/23/16 [History] Linaclotide [Linzess] 290 mcg PO DAILY PRN 11/23/16 [History] Amitriptyline [Elavil] 10 mg PO HS 11/15/17 [History] Lipase/Protease/Amylase [Kevin Celis 12,000 Units Capsule] 12,000 unit PO TIDWM 05/25 [History] Loratadine [Claritin] 10 mg PO DAILY PRN 11/15/17 [History] Oxygen 2 - 3 l NS HS 11/15/17 [History] Pantoprazole Sodium [Protonix] 40 mg PO BID 11/15/17 [History] Promethazine [Phenergan] 25 mg PO BID PRN 11/15/17 [History] Rivaroxaban [Xarelto] 20 mg PO DAILY 11/15/17 [History] Sennosides/Docusate Sodium [Senna Plus] 1 each PO BID PRN 11/15/17 [History] 3 Allergy/AdvReac Type Severity Reaction Status Date / Time acetaminophen [From Vicodin] Allergy Hives Verified 09/13/17 16:08 amylase [From Pancreaze] Allergy Hives Verified 09/13/17 16:08 hydrocodone [From Vicodin] Allergy Hives Verified 09/13/17 16:08 lipase [From Pancreaze] Allergy Hives Verified 09/13/17 16:08 nitrofurantoin Allergy Anaphylaxis Verified 09/13/17 16:08 [From Macrodantin] Pneumococcal Vaccine Allergy See Verified 11/15/17 14:17 Comments protease [From Pancreaze] Allergy Hives Verified 09/13/17 16:08 - Meds/Allergy Pre-op Review Medications Reviewed: Yes Allergies Reviewed: Yes Beta Blockers on Current Med List: No Anesthesia Results - Labs 11/16/17 10:45 11/15/17 15:27 Laboratory Tests 11/15/17 11/15/17 11/15/17 15:27 15:27 15:27 Hgb Hct Plt Count 236 PT 12.1 INR 1.1 Sodium 139 Potassium 3.9 BUN 11 Creatinine 0.55 L 11/16/17 10:45 Hgb 11.7 Hct 35.3 Plt Count PT INR Sodium Potassium BUN Creatinine - Imaging EKG: report reviewed (SR) Additional studies: EF 60% 2017 ECHO Anesthesia Exam Vital Signs/O2 Sat/Glucose, Most Current Temp Pulse Resp BP Pulse Ox 11/17/17 06:47 98.0 F 85 18 110/70 92 11/17/17 03:46 67 106/63 95 Height: 5'3 Weight: 135 lbs NPO (# of Hours): MN Pain Scale: 1 - HEENT Pupil (Motor): Pupils equal, EOMI Mallampati: II Teeth: Normal Oral Opening: Greater than 3 - ETYMOLOGY TEACHER LOC: Oriented ETYMOLOGY TEACHER Motor: Normal RUE, Normal LUE, Normal RLE, Normal LLE, Normal Face ETYMOLOGY TEACHER Sensory: Normal: RUE, LUE, RLE, LLE, Face - Cardiac Rhythm: Regular Murmur: None JVD: No Carotid Bruit: No - Pulmonary Breath Sounds: bilateral Clear Respiratory Effort: Symmetrical Anesthesia Assess/Plan ASA Score: 3 (Chronic Pancreatitis COPD Tobacco Anxiety) Modified [place] Scale for Level of Consciousness: Cooperative, oriented, and tranquil Anesthetic Plan: MAC Monitoring Plan: Standard Monitors Recovery Plan: Other (Discussed MAC, agrees to proceed)
[2017-11-17] MEDS ORDERED: Lidocaine -MPF 2% 2 ML VIAL ONE (07:48)
[2017-11-17] MEDS ORDERED: Propofol 500 MG/50 ML INFUS..BTL ONE (07:48)
--- NOTE | 2017-11-17 08:35 | Anesthesia Evaluation Post Op ---
Date of Encounter: 11/17/17 Time of Encounter: 08:35 - Vital Signs Vital Signs: Vital Signs/O2 Sat/Glucose, Most Current Temp Pulse Resp BP Pulse Ox 11/17/17 07:35 97.6 F 74 18 140/87 96 11/17/17 06:47 98.0 F 85 18 110/70 92 - Lungs Lungs: Clear Ascult./Percussion - Airway Airway: Non-obstructed - Cardiovascular Regular Rate - Mental Status Mental Status: Alert & Oriented, Answers Appropriately - Pain Pain Scale: 0 - Nausea Vomiting Nausea Vomiting: Not Present - Hydration Hydration: NPO - Discharge PostOp Status: Transfer Patient to floor
[2017-11-17] MEDS: Nicotine 21 MG PATCH.TD24 TD SCH (09:24)
[2017-11-17] MEDS: *HR* LORazepam 0.5 MG TABLET PO PRN (09:28)
--- NOTE | 2017-11-17 09:42 | Internal Med Progress Note ---
Date of Encounter: 11/17/17 Time of Encounter: 09:30 - Assessment and plan (1) GI bleed Current Visit: Yes Status: Acute Qualifiers: GI bleed type/associated pathology: unspecified gastrointestinal hemorrhage type Qualified Code(s): K92.2 - Gastrointestinal hemorrhage, unspecified (2) Chronic pancreatitis Current Visit: No Status: Chronic Qualifiers: Pancreatitis type: idiopathic Qualified Code(s): K86.1 - Other chronic pancreatitis (3) Nausea & vomiting Current Visit: No Status: Acute Qualifiers: Vomiting type: unspecified Vomiting Intractability: non-intractable Qualified Code(s): R11.2 - Nausea with vomiting, unspecified (4) Abdominal pain Current Visit: Yes Status: Acute Qualifiers: Abdominal location: unspecified location Qualified Code(s): R10.9 - Unspecified abdominal pain (5) History of DVT (deep vein thrombosis) Current Visit: Yes Status: Acute - Subjective Interval history: 42F with PMHx of COPD, chronic pancreatitis, diverticulitis, history of right upper extremity DVT on Xeralto presented to ED for evaluation of red blood in her stool for 3 days. She reports that she has noted dark and bright blood on multiple BMs. Denies history of hemorrhoids, constipation, but does admit to IBS. She also notes left sided abdominal pain and epigastric pain for the last 3 days. On admission, she admitted to dizziness and lightheadedness that have since resolved. Today, she denies vaginal bleeding or any active bleeding. She denies fevers, chills, chest pain, cough, breath. Denies blood stool today. Tolerating cardiac diet. Complaints of worsening abdominal pain after colonoscopy. - Constitutional Vitals: Temp Pulse Resp BP Pulse Ox 97.6 F 74 18 140/87 96 11/17/17 07:35 11/17/17 07:35 11/17/17 07:35 11/17/17 07:35 11/17/17 07:35 Internal Medicine: Result - Labs CBC & Chem 7: 11/16/17 10:45 11/15/17 15:27 Labs: Short CBC 11/16/17 Range/Units 10:45 Hgb 11.7 (11.5-15.4) g/dL Hct 35.3 (35.3-44.9) % - ABG Interpretation ABG results: PT/INR, D-dimer PT 12.1 Seconds (9.4-12.1) 11/15/17 15:27 - VTE Documentation of Mechanical Device: Intermittent pneumatic compression device Consult Discharge Plan - Plan Referrals: Peggy Richardson CNP [Primary Care Provider] -
--- NOTE | 2017-11-17 09:49 | Discharge Summary ---
<Abhijit Saldaña - Last Filed: 11/17/17 09:44> Date of Encounter: 11/17/17 Time of Encounter: 09:50 - Discharge Diagnosis (1) GI bleed Priority: Primary Status: Acute Qualifiers: GI bleed type/associated pathology: unspecified gastrointestinal hemorrhage type Qualified Code(s): K92.2 - Gastrointestinal hemorrhage, unspecified (2) Chronic pancreatitis Priority: Secondary Status: Chronic Qualifiers: Pancreatitis type: idiopathic Qualified Code(s): K86.1 - Other chronic pancreatitis (3) Nausea & vomiting Priority: Secondary Status: Acute Qualifiers: Vomiting type: unspecified Vomiting Intractability: non-intractable Qualified Code(s): R11.2 - Nausea with vomiting, unspecified (4) Abdominal pain Priority: Primary Status: Acute Qualifiers: Abdominal location: unspecified location Qualified Code(s): R10.9 - Unspecified abdominal pain (5) History of DVT (deep vein thrombosis) Priority: Secondary Status: Acute - Discharge Medications Home Medications: Albuterol Sulfate [Proair Hfa] 2 puff IH Q4H PRN 11/23/16 [History] EPINEPHrine [Epipen] 0.3 mg IM ONCE PRN 11/23/16 [History] LORazepam [Ativan] 0.5 mg PO BID PRN 11/23/16 [History] Linaclotide [Linzess] 290 mcg PO DAILY PRN 11/23/16 [History] Amitriptyline [Elavil] 10 mg PO HS 11/15/17 [History] Lipase/Protease/Amylase [Creon Dr 12,000 Units Capsule] 12,000 unit PO TIDWM 05/25 [History] Loratadine [Claritin] 10 mg PO DAILY PRN 11/15/17 [History] Oxygen 2 - 3 l NS HS 11/15/17 [History] Pantoprazole Sodium [Protonix] 40 mg PO BID 11/15/17 [History] Promethazine [Phenergan] 25 mg PO BID PRN 11/15/17 [History] Rivaroxaban [Xarelto] 20 mg PO DAILY 11/15/17 [History] Sennosides/Docusate Sodium [Senna Plus] 1 each PO BID PRN 11/15/17 [History] Allergies/Adverse Reactions: 3 Allergy/AdvReac Type Severity Reaction Status Date / Time acetaminophen [From Vicodin] Allergy Hives Verified 09/13/17 16:08 amylase [From Pancreaze] Allergy Hives Verified 09/13/17 16:08 hydrocodone [From Vicodin] Allergy Hives Verified 09/13/17 16:08 lipase [From Pancreaze] Allergy Hives Verified 09/13/17 16:08 nitrofurantoin Allergy Anaphylaxis Verified 09/13/17 16:08 [From Macrodantin] Pneumococcal Vaccine Allergy See Verified 11/15/17 14:17 Comments protease [From Pancreaze] Allergy Hives Verified 09/13/17 16:08 Date of admission: 11/15/17 18:58 Primary care physician: Peggy Richardson CNP Consults: 11/15/17 20:41 Consult to Gastroenterology [CONS] Routine Consulting Provider: [facility] [place] Reason for Consult: lower GIB Call Completed: Yes Discharging clinician: Abhijit Saldaña Anticipated date of discharge: 11/17/17 - Patient Status Disposition: Home, Self-Care Condition: Fair Overall status at discharge: patient is back to baseline - Discharge Instructions Instructions: Colonoscopy (DC), Colonoscopy (GEN) Follow Up With: Peggy Richardson CNP [Primary Care Provider] - - Diet and Activity Diet: advance to your usual diet Hospital course: Ms. Dougherty is a 42 year old female with past history of chronic pancreatitis, diverticular disease, right upper extremity DVT on September 2017 currently on Xeralto presents with 3 day history of intermittent hematochezia. She reported approximately 9 bloody BMs in the last 3 days. Bowel movements are associated with left lower quadrant discomfort 7 out of 10 pain, sharp and crampy in quality. CT of abdomen and pelvis demonstrated no acute findings in the abdomen or pelvis, no findings to suggest acute or chronic pancreatitis. Mild bibasilar ground glass opacity likely atelectasis, and mild thickening of urinary bladder wall versus underdistention. She was admitted for possible GI bleed. H/H holding stable and WNL throughout admission. EGD on 11/16/17 demonstrated esophagitis with no acute bleed, suspicious for Schwartz's esophagus , gastroparesis, no acute bleeds noted. Colonoscopy on 11/17/17 demonstrated nonbleeding internal hemorrhoids without any signs of acute bleed. The patient has complained of worsening abdominal pain since admission, unrelieved with morphine 20 mg every 8 hours when necessary. She reports that she is on morphine daily at home for chronic pain. OARRS report obtained and reviewed on 11/16/17, no reports of daily morphine noted. We restarted her on her lorazepam 0.5 mg daily on 11/16/17. Plan to discharge home and advised patient to follow- up with PCP and Dr. Lin in the next 2 weeks. - Time Spent with Patient Total time spent providing and/or coordinating discharge services: Greater than 30 minutes - Constitutional Vitals: Temp Pulse Resp BP Pulse Ox 97.6 F 74 18 140/87 96 11/17/17 07:35 11/17/17 07:35 11/17/17 07:35 11/17/17 07:35 11/17/17 07:35 - Head Head exam: Present: atraumatic, normocephalic - Eye Eye exam: Present: PERRL, conjuntiva pink, sclera anicteric Pupils: Present: PERRL - Neck Neck exam general surgery: Present: supple, trachea midline. Absent: lymphadenopathy - Respiratory Respiratory exam: Present: CTAB. Absent: accessory muscle use, rales, rhonchi, wheezes - Cardiovascular Cardiovascular exam: Present: RRR, +S1, +S2. Absent: diastolic murmur, gallop, rubs, systolic murmur - GI/Abdominal GI/Abdominal exam: Present: normal bowel sounds, soft, no peritoneal signs. Absent: distended, tenderness Additional comments: Diffuse tenderness to light palpation. - Extremities Exam Extremities exam: Present: warm, radial pulses palpable and symmetrical. Absent : calf tenderness, cyanotic, pedal edema - Neurological Exam Neurological exam: Present: CN II-XII intact, oriented X3, no focal deficits. Absent: pronater drift, facial droop, speech deficit - Skin Skin exam: Present: dry, intact - VTE Documentation of Mechanical Device: Intermittent pneumatic compression device <Jasmeet Silver - Last Filed: 11/17/17 12:17> Date of Encounter: 11/17/17 Date of admission: 11/15/17 18:58 Primary care physician: Peggy Richardson CNP Consults: 11/15/17 20:41 Consult to Gastroenterology [CONS] Routine Consulting Provider: [facility] [place] Reason for Consult: lower GIB Call Completed: Yes Hospital course: Ms. Dougherty is a 42 year old female - Time Spent with Patient Total time spent providing and/or coordinating discharge services: - Constitutional Vitals: Temp Pulse Resp BP Pulse Ox 97.8 F 83 18 102/65 95 11/17/17 11:15 11/17/17 11:15 11/17/17 11:15 11/17/17 11:15 11/17/17 11:15 - Attending Attestation I examined this patient and my medical decision-making was reviewed with the Resident Physician. I agree with the documented findings, disposition and treatment plan as described except to the extent set forth below. Patient who is being managed for suspected LGIB She is on Xarelto for DVT EGD is negative for acute bleed Colonoscopy negative for bleed Hb stable Seeking pain meds, Abd CT is negative OARSS reviewed, last filled morphine IR 09/13/17 for 3 days only Per GI can be discharged home, follow up for capsule endoscopy Hemodynamically and clinically stable Rest as in the resident physician's documentation
[2017-11-17 19:37] VITALS: BP 165/84
== END 2017-11-17 12:15 | disposition home or self-care (01) ==
LOC: EMEROO 14:01 → ICNU 18:58 → INTOOBSV 18:58 → 3ANU 18:59
PROVIDERS: ADMIT Internal Medicine; ATTEND Internal Medicine

== ENCOUNTER 2019-05-31 07:00 | Observation (INO) ==
[2019-05-31] MEDS ORDERED: *HR* OxyCODONE/APAP 5/325 TABLET PO ONE (07:51)
[2019-05-31] MEDS ORDERED: *HR* FentaNYL (PF) 100 MCG/2 ML VIAL IM ONE (09:02)
[2019-05-31] MEDS ORDERED: *HR* Heparin 5,000 UNIT/ML VIAL IVP ONE (09:16)
[2019-05-31] MEDS ORDERED: *HR* Heparin 5,000 UNIT/ML VIAL IVP PRN (09:16)
[2019-05-31] MEDS ORDERED: *HR* FentaNYL (PF) 100 MCG/2 ML VIAL IVP ONE (10:21)
[2019-05-31] MEDS ORDERED: Prochlorperazine 10 MG/2 ML VIAL IVP STA (10:21)
[2019-05-31 10:39] LABS: Basophils % 0.3 %; Eosinophils # 0.2 K/mcL (0.0-0.6); Eosinophils % 1.4 %; Hematocrit 35.1 % (35.3-44.9); Hemoglobin 11.7 g/dL (11.5-15.4); Immature Granulocytes % 0.5 % (0-4); Lymphocytes # 2.5 K/mcL (0.6-4.6); Lymphocytes % 18.7 %; Mean Corpuscular HGB Conc 33.3 g/dL (31.6-35.5); Mean Corpuscular Hemoglobin 30.2 pg (28.0-33.3); Mean Corpuscular Volume 90.5 fL (83.0-100.0); Mean Platelet Volume 9.1 fL (9.4-12.4); Monocytes % 7.6 %; Neutrophils # 9.4 K/mcL (1.6-8.9); Platelet Count 236 K/mcL (140-400); Red Blood Count 3.88 M/mcL (3.82-4.97); Red Cell Distribution Width 13.9 % (11.5-14.5); Segmented Neutrophils % 71.5 %; White Blood Count 13.2 K/mcL (4.3-11.1)
[2019-05-31] MEDS: Heparin 25,000 UNIT/250 ML D5W 25,000 UNIT/250 ML IV.SOLN IVC SCH (10:42)
[2019-05-31 10:50] LABS: Heparin anti-factor XA UFH 0.04 IU/mL (0.30-0.70)
[2019-05-31 10:51] LABS: Prothrombin Time 11.3 Seconds (9.4-12.1)
[2019-05-31 10:57] LABS: BUN/Creatinine Ratio 14 (6-26); Blood Urea Nitrogen 7 mg/dL (6-20); Calcium 9.3 mg/dL (8.6-10.3); Carbon Dioxide 29 mEq/L (23-29); Chloride 101 mEq/L (98-107); Glucose 101 mg/dL (70-105); Osmolality,Calculated 286 (280-300); Potassium 3.7 mEq/L (3.5-5.1); Sodium 139 mEq/L (136-145); eGFR For African Americans > 60 (> 60); eGFR For Non-African Americans > 60 (> 60)
[2019-05-31] MEDS ORDERED: Naloxone 0.4 MG/ML INJ IVP PRN (12:39)
[2019-05-31] MEDS ORDERED: Ondansetron 4 MG/2 ML VIAL IVP PRN (12:39)
[2019-05-31] MEDS: *HR* OxyCODONE/APAP 7.5/325 TABLET PO PRN ×2 (13:53→23:01)
[2019-05-31] MEDS: 0.9 % Sodium Chloride 1,000 ML IVC SCH ×2 (13:54→21:45)
[2019-05-31] MEDS ORDERED: Sennosides/Docusate Sodium TABLET PO PRN (17:25)
[2019-05-31] MEDS: *HR* HYDROcodone/Acet 10/325 mg TABLET PO PRN (17:44)
[2019-05-31] MEDS: PROTEASE PO SCH (18:30)
[2019-05-31] MEDS: AMYLASE PO SCH (18:30)
[2019-05-31] MEDS: LIPASE PO SCH (18:30)
[2019-05-31] MEDS: Gabapentin 300 MG CAPSULE PO SCH (20:22)
[2019-05-31] MEDS: Melatonin 3 MG TABLET PO SCH (20:22)
[2019-05-31] MEDS: *HR* LORazepam 0.5 MG TABLET PO PRN (20:27)
[2019-05-31] MEDS ORDERED: Nystatin SUSP 5 ML UD.LIQ PO PRN (20:41)
[2019-06-01 01:45] LABS: Basophils % 0.4 %; Eosinophils # 0.2 K/mcL (0.0-0.6); Eosinophils % 2.1 %; Hematocrit 34.2 % (35.3-44.9); Hemoglobin 11.1 g/dL (11.5-15.4); Immature Granulocytes % 0.7 % (0-4); Lymphocytes # 2.3 K/mcL (0.6-4.6); Lymphocytes % 32.8 %; Mean Corpuscular HGB Conc 32.5 g/dL (31.6-35.5); Mean Corpuscular Hemoglobin 30.3 pg (28.0-33.3); Mean Corpuscular Volume 93.4 fL (83.0-100.0); Mean Platelet Volume 9.9 fL (9.4-12.4); Monocytes # 0.7 K/mcL (0.0-1.3); Monocytes % 10.4 %; Neutrophils # 3.7 K/mcL (1.6-8.9); Platelet Count 219 K/mcL (140-400); Red Blood Count 3.66 M/mcL (3.82-4.97); Red Cell Distribution Width 13.9 % (11.5-14.5); Segmented Neutrophils % 53.6 %
[2019-06-01] MEDS: *HR* Heparin 5,000 UNIT/ML VIAL IVP PRN ×2 (01:58→17:11)
[2019-06-01 02:12] LABS: Alanine Aminotransferase 68 Units/L (7-52); Albumin 3.2 g/dL (3.5-5.7); Albumin/Globulin Ratio 1.1 (1.1-2.2); Alkaline Phosphatase 116 Units/L (34-104); Aspartate Amino Transferase 22 Units/L (13-39); BUN/Creatinine Ratio 16 (6-26); Bilirubin,Total 0.4 mg/dL (0.3-1.0); Blood Urea Nitrogen 9 mg/dL (6-20); Calcium 8.5 mg/dL (8.6-10.3); Carbon Dioxide 24 mEq/L (23-29); Chloride 105 mEq/L (98-107); Chol/HDL Ratio 4.6 (0-4.9); Cholesterol 142 mg/dL (< 200); Glucose 101 mg/dL (70-105); HDL Cholesterol 31 mg/dL (40-59); LDL Cholesterol,Calculated 90 mg/dL (0-99); Osmolality,Calculated 285 (280-300); Phosphorous 3.7 mg/dL (2.7-4.5); Potassium 4.2 mEq/L (3.5-5.1); Sodium 138 mEq/L (136-145); Total Protein 6.2 g/dL (6.4-8.9); Triglycerides 107 mg/dL (< 150); eGFR For African Americans > 60 (> 60); eGFR For Non-African Americans > 60 (> 60)
[2019-06-01] MEDS: *HR* HYDROcodone/Acet 10/325 mg TABLET PO PRN ×3 (04:12→20:05)
[2019-06-01] MEDS: Heparin 25,000 UNIT/250 ML D5W 25,000 UNIT/250 ML IV.SOLN IVC SCH (05:50)
[2019-06-01] MEDS: *HR* OxyCODONE/APAP 7.5/325 TABLET PO PRN ×2 (06:33→22:47)
[2019-06-01] MEDS: *HR* LORazepam 0.5 MG TABLET PO PRN (08:30)
[2019-06-01] MEDS: Gabapentin 300 MG CAPSULE PO SCH ×3 (08:30→20:05)
[2019-06-01] MEDS: Loratadine 10 MG TABLET PO SCH (08:30)
[2019-06-01] MEDS: LIPASE PO SCH ×3 (08:52→16:07)
[2019-06-01] MEDS: PROTEASE PO SCH ×3 (08:52→16:07)
[2019-06-01] MEDS: AMYLASE PO SCH ×3 (08:52→16:07)
[2019-06-01] MEDS: Ketorolac 15 MG/ML VIAL IVP PRN ×2 (10:08→16:06)
[2019-06-01] MEDS: Nystatin SUSP 5 ML UD.LIQ PO SCH (20:05)
[2019-06-01] MEDS: Melatonin 3 MG TABLET PO SCH (20:06)
[2019-06-02] MEDS: *HR* Heparin 5,000 UNIT/ML VIAL IVP PRN (00:54)
[2019-06-02] MEDS: *HR* LORazepam 0.5 MG TABLET PO PRN (00:55)
[2019-06-02] MEDS: Heparin 25,000 UNIT/250 ML D5W 25,000 UNIT/250 ML IV.SOLN IVC SCH (00:57)
[2019-06-02] MEDS: Ketorolac 15 MG/ML VIAL IVP PRN ×3 (02:07→14:27)
[2019-06-02] MEDS: *HR* HYDROcodone/Acet 10/325 mg TABLET PO PRN ×2 (05:39→11:48)
[2019-06-02] MEDS: LIPASE PO SCH ×2 (08:27→11:49)
[2019-06-02] MEDS: AMYLASE PO SCH ×2 (08:27→11:49)
[2019-06-02] MEDS: PROTEASE PO SCH ×2 (08:27→11:49)
[2019-06-02] MEDS: Loratadine 10 MG TABLET PO SCH (08:28)
[2019-06-02] MEDS: Nystatin SUSP 5 ML UD.LIQ PO SCH ×2 (08:28→11:49)
[2019-06-02] MEDS: Gabapentin 300 MG CAPSULE PO SCH ×2 (08:28→14:27)
[2019-06-02 08:37] LABS: Basophils % 0.3 %; Eosinophils # 0.2 K/mcL (0.0-0.6); Eosinophils % 2.5 %; Hematocrit 31.1 % (35.3-44.9); Hemoglobin 10.2 g/dL (11.5-15.4); Immature Granulocytes % 0.8 % (0-4); Lymphocytes # 1.7 K/mcL (0.6-4.6); Lymphocytes % 26.4 %; Mean Corpuscular HGB Conc 32.8 g/dL (31.6-35.5); Mean Corpuscular Hemoglobin 29.9 pg (28.0-33.3); Mean Corpuscular Volume 91.2 fL (83.0-100.0); Monocytes # 0.9 K/mcL (0.0-1.3); Monocytes % 13.4 %; Neutrophils # 3.6 K/mcL (1.6-8.9); Platelet Count 211 K/mcL (140-400); Red Blood Count 3.41 M/mcL (3.82-4.97); Red Cell Distribution Width 13.9 % (11.5-14.5); Segmented Neutrophils % 56.6 %; White Blood Count 6.4 K/mcL (4.3-11.1)
[2019-06-02 08:55] LABS: BUN/Creatinine Ratio 20 (6-26); Blood Urea Nitrogen 13 mg/dL (6-20); Calcium 8.7 mg/dL (8.6-10.3); Carbon Dioxide 27 mEq/L (23-29); Chloride 105 mEq/L (98-107); Glucose 96 mg/dL (70-105); Osmolality,Calculated 288 (280-300); Potassium 3.9 mEq/L (3.5-5.1); Sodium 139 mEq/L (136-145); eGFR For African Americans > 60 (> 60); eGFR For Non-African Americans > 60 (> 60)
[2019-06-02 11:21] VITALS: BP 111/74
[2019-06-02] MEDS ORDERED: *HR* Rivaroxaban 10 MG TABLET PO ONE (13:00)
[2019-06-02] MEDS ORDERED: *HR* Rivaroxaban 15 MG TABLET PO SCH (13:15)
== END 2019-06-02 15:43 | disposition home or self-care (01) ==
LOC: EMEROOARM 07:00 → 3BNU 07:00
PROVIDERS: ADMIT Internal Medicine Nephrology; ATTEND Internal Medicine Nephrology

== ENCOUNTER 2019-08-06 16:56 | Observation (INO) ==
[2019-08-06 17:57] LABS: Basophils # 0.1 K/mcL (0.0-0.2); Basophils % 0.5 %; Eosinophils # 0.1 K/mcL (0.0-0.6); Eosinophils % 1.1 %; Hematocrit 42.4 % (35.3-44.9); Hemoglobin 14.8 g/dL (11.5-15.4); Immature Granulocytes % 0.3 % (0-4); Lymphocytes # 3.2 K/mcL (0.6-4.6); Lymphocytes % 30.1 %; Mean Corpuscular HGB Conc 34.9 g/dL (31.6-35.5); Mean Corpuscular Hemoglobin 30.3 pg (28.0-33.3); Mean Corpuscular Volume 86.7 fL (83.0-100.0); Mean Platelet Volume 9.3 fL (9.4-12.4); Monocytes # 0.6 K/mcL (0.0-1.3); Monocytes % 5.5 %; Neutrophils # 6.6 K/mcL (1.6-8.9); Platelet Count 236 K/mcL (140-400); Red Blood Count 4.89 M/mcL (3.82-4.97); Segmented Neutrophils % 62.5 %; White Blood Count 10.5 K/mcL (4.3-11.1)
[2019-08-06 18:20] LABS: BUN/Creatinine Ratio 22 (6-26); Blood Urea Nitrogen 12 mg/dL (6-20); Calcium 9.1 mg/dL (8.6-10.3); Carbon Dioxide 22 mEq/L (23-29); Chloride 107 mEq/L (98-107); Glucose 86 mg/dL (70-105); Osmolality,Calculated 283 (280-300); Potassium 3.8 mEq/L (3.5-5.1); Sodium 137 mEq/L (136-145); Troponin I < 0.03 ng/mL (< 0.04); eGFR For African Americans > 60 (> 60); eGFR For Non-African Americans > 60 (> 60)
[2019-08-06] MEDS ORDERED: Aspirin 325 MG TABLET PO ONE (18:27)
[2019-08-06] MEDS ORDERED: Ketorolac 15 MG/ML VIAL IVP ONE ×2 (19:05→23:17)
[2019-08-06] MEDS ORDERED: Metoclopramide 10 MG/2 ML VIAL IVP ONE (19:05)
[2019-08-06] MEDS ORDERED: Ondansetron ODT 4 MG TAB.RAPDIS SL PRN (23:15)
[2019-08-06] MEDS ORDERED: Naloxone 0.4 MG/ML INJ IVP PRN (23:15)
[2019-08-07] MEDS ORDERED: Acetaminophen 325 MG TABLET PO PRN (00:41)
[2019-08-07] MEDS: *HR* Heparin 5,000 UNIT/ML VIAL SQ SCH ×2 (00:58→06:26)
[2019-08-07 01:07] LABS: INR 1.2; Prothrombin Time 13.3 Seconds (9.4-12.1)
[2019-08-07] MEDS ORDERED: *HR* LORazepam 0.5 MG TABLET PO PRN (01:25)
[2019-08-07 04:24] LABS: BUN/Creatinine Ratio 22 (6-26); Blood Urea Nitrogen 15 mg/dL (6-20); Calcium 9.4 mg/dL (8.6-10.3); Carbon Dioxide 25 mEq/L (23-29); Chloride 103 mEq/L (98-107); Chol/HDL Ratio 4.7 (0-4.9); Cholesterol 185 mg/dL (< 200); Glucose 90 mg/dL (70-105); HDL Cholesterol 39 mg/dL (40-59); LDL Cholesterol,Calculated 103 mg/dL (0-99); Osmolality,Calculated 290 (280-300); Potassium 3.6 mEq/L (3.5-5.1); Sodium 140 mEq/L (136-145); Triglycerides 214 mg/dL (< 150); eGFR For African Americans > 60 (> 60); eGFR For Non-African Americans > 60 (> 60)
[2019-08-07 05:24] LABS: Basophils % 0.4 %; Eosinophils # 0.2 K/mcL (0.0-0.6); Eosinophils % 1.6 %; Hematocrit 42.4 % (35.3-44.9); Hemoglobin 13.7 g/dL (11.5-15.4); Immature Granulocytes % 0.3 % (0-4); Lymphocytes # 3.9 K/mcL (0.6-4.6); Lymphocytes % 40.6 %; Mean Corpuscular HGB Conc 32.3 g/dL (31.6-35.5); Mean Corpuscular Hemoglobin 29.7 pg (28.0-33.3); Mean Platelet Volume 10.3 fL (9.4-12.4); Monocytes # 0.6 K/mcL (0.0-1.3); Monocytes % 6.7 %; Neutrophils # 4.8 K/mcL (1.6-8.9); Platelet Count 240 K/mcL (140-400); Red Blood Count 4.61 M/mcL (3.82-4.97); Red Cell Distribution Width 14.1 % (11.5-14.5); Segmented Neutrophils % 50.4 %; White Blood Count 9.6 K/mcL (4.3-11.1)
[2019-08-07] MEDS ORDERED: *HR* Rivaroxaban 10 MG TABLET PO SCH (08:00)
[2019-08-07] MEDS ORDERED: *HR* HYDROcodone/Acet 5/325 mg TABLET PO PRN (08:34)
[2019-08-07] MEDS ORDERED: Gabapentin 300 MG CAPSULE PO SCH (09:00)
[2019-08-07] MEDS ORDERED: Nicotine 14 MG PATCH.TD24 TD SCH (09:00)
[2019-08-07] MEDS ORDERED: Cyanocobalamin (B-12) 1,000 MCG TABLET PO SCH (10:00)
[2019-08-07 10:30] VITALS: BP 122/82
== END 2019-08-07 15:00 | disposition home or self-care (01) ==
LOC: EMEROOARM 16:56 → 3BNU 16:56
PROVIDERS: ADMIT Internal Medicine; ATTEND Internal Medicine

== ENCOUNTER 2019-10-21 15:22 | Inpatient (IN) ==
[2019-10-21 16:05] LABS: Basophils % 0.5 %; Eosinophils # 0.1 K/mcL (0.0-0.6); Eosinophils % 1.1 %; Hematocrit 43.4 % (35.3-44.9); Hemoglobin 15.3 g/dL (11.5-15.4); Immature Granulocytes % 0.2 % (0-4); Mean Corpuscular HGB Conc 35.3 g/dL (31.6-35.5); Mean Corpuscular Hemoglobin 30.7 pg (28.0-33.3); Mean Platelet Volume 9.6 fL (9.4-12.4); Monocytes # 0.4 K/mcL (0.0-1.3); Monocytes % 5.2 %; Neutrophils # 4.6 K/mcL (1.6-8.9); Platelet Count 204 K/mcL (140-400); Red Blood Count 4.99 M/mcL (3.82-4.97); White Blood Count 8.1 K/mcL (4.3-11.1)
[2019-10-21 16:08] LABS: Bilirubin,Urine Negative (Negative); Blood,Urine Trace (Negative); Clarity,Urine Clear (Clear); Color,Urine Yellow (Yellow); Glucose,Urine (UA) Normal (Normal); Ketones,Urine Negative (Negative); Leukocyte Esterase,Urine Negative (Negative); Nitrite,Urine Negative (Negative); PH,Urine 6.5 pH Units (5.0-8.0); Protein,Urine Negative (Neg-Trace); Specific Gravity,Urine 1.009 (1.010-1.025); Urobilinogen,Urine Normal (Normal)
[2019-10-21] MEDS ORDERED: *HR* HYDROmorphone (PF) 1 MG/ML SYRINGE IVP ONE (16:17)
[2019-10-21] MEDS ORDERED: 0.9 % Sodium Chloride 1,000 ML IVC ONE (16:17)
[2019-10-21] MEDS ORDERED: *HR* Promethazine 25 MG/ML VIAL IVP ONE (16:17)
[2019-10-21 16:36] LABS: Alanine Aminotransferase 52 Units/L (7-52); Albumin 4.1 g/dL (3.5-5.7); Albumin/Globulin Ratio 1.4 (1.1-2.2); Alkaline Phosphatase 106 Units/L (34-104); Amylase 60 Units/L (29-103); Aspartate Amino Transferase 44 Units/L (13-39); BUN/Creatinine Ratio 15 (6-26); Bilirubin,Direct 0.1 mg/dL (0.0-0.2); Bilirubin,Indirect 0.2 mg/dL (0.0-1.0); Bilirubin,Total 0.3 mg/dL (0.3-1.0); Blood Urea Nitrogen 9 mg/dL (6-20); Calcium 9.2 mg/dL (8.6-10.3); Carbon Dioxide 23 mEq/L (23-29); Chloride 108 mEq/L (98-107); Glucose 104 mg/dL (70-105); Lipase 59 Units/L (11-82); Osmolality,Calculated 291 (280-300); Potassium 3.8 mEq/L (3.5-5.1); Sodium 141 mEq/L (136-145); Total Protein 7.1 g/dL (6.4-8.9); eGFR For African Americans > 60 (> 60); eGFR For Non-African Americans > 60 (> 60)
[2019-10-21] MEDS ORDERED: Naloxone 0.4 MG/ML INJ IVP PRN (16:51)
[2019-10-21] MEDS ORDERED: Ipratropium/Albuterol Neb 3 ML IH PRN (17:15)
[2019-10-21] MEDS: Ringers Solution, Lactated 1,000 ML IVC SCH (21:53)
[2019-10-21] MEDS: Promethazine 12.5 MG in 0.9 % Sodium Chloride 50 ML IVPB PRN (23:38)
[2019-10-22 04:31] LABS: Basophils % 0.5 %; Eosinophils # 0.1 K/mcL (0.0-0.6); Eosinophils % 1.1 %; Immature Granulocytes % 0.2 % (0-4); Lymphocytes # 3.1 K/mcL (0.6-4.6); Lymphocytes % 48.5 %; Mean Corpuscular HGB Conc 33.2 g/dL (31.6-35.5); Mean Corpuscular Hemoglobin 30.4 pg (28.0-33.3); Mean Corpuscular Volume 91.6 fL (83.0-100.0); Mean Platelet Volume 10.1 fL (9.4-12.4); Monocytes # 0.5 K/mcL (0.0-1.3); Monocytes % 7.1 %; Neutrophils # 2.7 K/mcL (1.6-8.9); Platelet Count 169 K/mcL (140-400); Red Blood Count 4.15 M/mcL (3.82-4.97); Segmented Neutrophils % 42.6 %; White Blood Count 6.4 K/mcL (4.3-11.1)
[2019-10-22 04:32] LABS: Hemoglobin 12.6 g/dL (11.5-15.4)
[2019-10-22 04:47] LABS: Chol/HDL Ratio 4.2 (0-4.9)
[2019-10-22 04:48] LABS: Alanine Aminotransferase 74 Units/L (7-52); Albumin 3.7 g/dL (3.5-5.7); Albumin/Globulin Ratio 1.5 (1.1-2.2); Alkaline Phosphatase 113 Units/L (34-104); Aspartate Amino Transferase 77 Units/L (13-39); BUN/Creatinine Ratio 16 (6-26); Bilirubin,Total 0.4 mg/dL (0.3-1.0); Blood Urea Nitrogen 8 mg/dL (6-20); Calcium 8.8 mg/dL (8.6-10.3); Carbon Dioxide 26 mEq/L (23-29); Chloride 107 mEq/L (98-107); Globulin 2.4 g/dL (2.4-3.5); Glucose 91 mg/dL (70-105); Magnesium 1.8 mg/dL (1.6-2.6); Osmolality,Calculated 288 (280-300); Potassium 3.6 mEq/L (3.5-5.1); Sodium 140 mEq/L (136-145); Total Protein 6.1 g/dL (6.4-8.9); eGFR For African Americans > 60 (> 60); eGFR For Non-African Americans > 60 (> 60)
[2019-10-22] MEDS: Ringers Solution, Lactated 1,000 ML IVC SCH ×4 (06:08→22:42)
[2019-10-22] MEDS: Promethazine 12.5 MG in 0.9 % Sodium Chloride 50 ML IVPB PRN ×2 (06:33→20:58)
[2019-10-22] MEDS: *HR* Rivaroxaban 10 MG TABLET PO SCH (07:26)
[2019-10-22] MEDS ORDERED: Ringers Solution, Lactated 1,000 ML IVC SCH (07:45)
[2019-10-22] MEDS: Ondansetron 4 MG/2 ML VIAL IVP PRN (11:35)
[2019-10-22] MEDS ORDERED: Morphine Sulfate 2 MG/ML SYRINGE IVP ONE (12:49)
[2019-10-23] MEDS: *HR* LORazepam 2 MG/ML VIAL IVP PRN ×3 (02:23→19:50)
[2019-10-23] MEDS: Ringers Solution, Lactated 1,000 ML IVC SCH ×4 (04:22→19:58)
[2019-10-23 07:04] LABS: Hematocrit 35.8 % (35.3-44.9); Hemoglobin 12.1 g/dL (11.5-15.4); Mean Corpuscular HGB Conc 33.8 g/dL (31.6-35.5); Mean Corpuscular Hemoglobin 30.3 pg (28.0-33.3); Mean Corpuscular Volume 89.5 fL (83.0-100.0); Mean Platelet Volume 9.9 fL (9.4-12.4); Platelet Count 141 K/mcL (140-400); Red Cell Distribution Width 13.2 % (11.5-14.5); White Blood Count 7.5 K/mcL (4.3-11.1)
[2019-10-23 07:32] LABS: Alanine Aminotransferase 78 Units/L (7-52); Albumin 3.4 g/dL (3.5-5.7); Albumin/Globulin Ratio 1.4 (1.1-2.2); Alkaline Phosphatase 143 Units/L (34-104); Aspartate Amino Transferase 61 Units/L (13-39); BUN/Creatinine Ratio 15 (6-26); Bilirubin,Total 0.4 mg/dL (0.3-1.0); Blood Urea Nitrogen 7 mg/dL (6-20); Calcium 8.7 mg/dL (8.6-10.3); Carbon Dioxide 26 mEq/L (23-29); Chloride 105 mEq/L (98-107); Globulin 2.4 g/dL (2.4-3.5); Glucose 74 mg/dL (70-105); Osmolality,Calculated 287 (280-300); Potassium 3.6 mEq/L (3.5-5.1); Sodium 140 mEq/L (136-145); Total Protein 5.8 g/dL (6.4-8.9); eGFR For African Americans > 60 (> 60); eGFR For Non-African Americans > 60 (> 60)
[2019-10-23] MEDS: *HR* Rivaroxaban 10 MG TABLET PO SCH (09:10)
[2019-10-23] MEDS: Aspirin Enteric Coated 81 MG Tablet PO SCH (09:10)
[2019-10-23] MEDS: Ondansetron 4 MG/2 ML VIAL IVP PRN ×2 (09:19→19:50)
[2019-10-23 12:50] LABS: VBG Ionized Calcium 1.12 mmol/L (1.15-1.35)
[2019-10-23] MEDS ORDERED: Morphine Sulfate 2 MG/ML SYRINGE IVP ONE (14:42)
[2019-10-24] MEDS: Promethazine 12.5 MG in 0.9 % Sodium Chloride 50 ML IVPB PRN ×2 (01:41→19:59)
[2019-10-24] MEDS: *HR* LORazepam 2 MG/ML VIAL IVP PRN ×4 (01:41→23:49)
[2019-10-24] MEDS: Ringers Solution, Lactated 1,000 ML IVC SCH ×4 (04:40→20:00)
[2019-10-24] MEDS: Aspirin Enteric Coated 81 MG Tablet PO SCH (08:49)
[2019-10-24] MEDS: *HR* Rivaroxaban 10 MG TABLET PO SCH (08:49)
[2019-10-24 09:26] LABS: Basophils % 0.3 %; Eosinophils # 0.1 K/mcL (0.0-0.6); Eosinophils % 0.9 %; Hematocrit 35.5 % (35.3-44.9); Hemoglobin 11.9 g/dL (11.5-15.4); Immature Granulocytes % 0.2 % (0-4); Lymphocytes # 2.3 K/mcL (0.6-4.6); Lymphocytes % 35.3 %; Mean Corpuscular HGB Conc 33.5 g/dL (31.6-35.5); Mean Corpuscular Hemoglobin 30.3 pg (28.0-33.3); Mean Corpuscular Volume 90.3 fL (83.0-100.0); Mean Platelet Volume 9.9 fL (9.4-12.4); Monocytes # 0.5 K/mcL (0.0-1.3); Monocytes % 7.5 %; Neutrophils # 3.6 K/mcL (1.6-8.9); Platelet Count 156 K/mcL (140-400); Red Blood Count 3.93 M/mcL (3.82-4.97); Red Cell Distribution Width 13.3 % (11.5-14.5); Segmented Neutrophils % 55.8 %; White Blood Count 6.4 K/mcL (4.3-11.1)
[2019-10-24 09:48] LABS: Alanine Aminotransferase 211 Units/L (7-52); Albumin 3.8 g/dL (3.5-5.7); Albumin/Globulin Ratio 1.5 (1.1-2.2); Alkaline Phosphatase 249 Units/L (34-104); Aspartate Amino Transferase 268 Units/L (13-39); BUN/Creatinine Ratio 12 (6-26); Bilirubin,Total 0.7 mg/dL (0.3-1.0); Blood Urea Nitrogen 6 mg/dL (6-20); Calcium 8.7 mg/dL (8.6-10.3); Carbon Dioxide 29 mEq/L (23-29); Chloride 101 mEq/L (98-107); Globulin 2.5 g/dL (2.4-3.5); Glucose 83 mg/dL (70-105); Osmolality,Calculated 283 (280-300); Potassium 3.6 mEq/L (3.5-5.1); Sodium 138 mEq/L (136-145); Total Protein 6.3 g/dL (6.4-8.9); eGFR For African Americans > 60 (> 60); eGFR For Non-African Americans > 60 (> 60)
[2019-10-24] MEDS: Ondansetron 4 MG/2 ML VIAL IVP PRN (10:56)
[2019-10-24] MEDS ORDERED: *HR* OxyCODONE Immed Rel 5 MG TABLET PO PRN (12:05)
[2019-10-24] MEDS ORDERED: *HR* OxyCODONE Immed Rel 15 MG TABLET PO PRN (12:06)
[2019-10-24] MEDS: *HR* OxyCODONE Immed Rel 5 MG TABLET PO PRN ×2 (12:37→22:27)
[2019-10-24] MEDS ORDERED: Silver Sulfadiazine 50 GM TUBE TP ONE (21:00)
[2019-10-25] MEDS: Ringers Solution, Lactated 1,000 ML IVC SCH ×3 (01:25→20:22)
[2019-10-25 02:30] LABS: Basophils % 0.4 %; Eosinophils # 0.1 K/mcL (0.0-0.6); Eosinophils % 1.2 %; Hematocrit 34.8 % (35.3-44.9); Hemoglobin 11.8 g/dL (11.5-15.4); Immature Granulocytes % 0.4 % (0-4); Lymphocytes # 2.4 K/mcL (0.6-4.6); Lymphocytes % 32.6 %; Mean Corpuscular HGB Conc 33.9 g/dL (31.6-35.5); Mean Corpuscular Volume 88.5 fL (83.0-100.0); Monocytes # 0.5 K/mcL (0.0-1.3); Neutrophils # 4.2 K/mcL (1.6-8.9); Platelet Count 160 K/mcL (140-400); Red Blood Count 3.93 M/mcL (3.82-4.97); Red Cell Distribution Width 13.4 % (11.5-14.5); Segmented Neutrophils % 58.4 %; White Blood Count 7.3 K/mcL (4.3-11.1)
[2019-10-25 02:57] LABS: Alanine Aminotransferase 181 Units/L (7-52); Albumin 3.7 g/dL (3.5-5.7); Albumin/Globulin Ratio 1.5 (1.1-2.2); Alkaline Phosphatase 254 Units/L (34-104); Aspartate Amino Transferase 149 Units/L (13-39); BUN/Creatinine Ratio 9 (6-26); Bilirubin,Total 0.6 mg/dL (0.3-1.0); Blood Urea Nitrogen 5 mg/dL (6-20); Calcium 8.7 mg/dL (8.6-10.3); Carbon Dioxide 28 mEq/L (23-29); Chloride 102 mEq/L (98-107); Globulin 2.4 g/dL (2.4-3.5); Glucose 80 mg/dL (70-105); Osmolality,Calculated 288 (280-300); Potassium 3.6 mEq/L (3.5-5.1); Sodium 141 mEq/L (136-145); Total Protein 6.1 g/dL (6.4-8.9); eGFR For African Americans > 60 (> 60); eGFR For Non-African Americans > 60 (> 60)
[2019-10-25] MEDS: *HR* OxyCODONE Immed Rel 5 MG TABLET PO PRN (05:47)
[2019-10-25] MEDS: *HR* Rivaroxaban 10 MG TABLET PO SCH (08:15)
[2019-10-25] MEDS: Aspirin Enteric Coated 81 MG Tablet PO SCH (08:15)
[2019-10-25] MEDS: Promethazine 12.5 MG in 0.9 % Sodium Chloride 50 ML IVPB PRN ×2 (08:17→15:22)
[2019-10-25] MEDS: *HR* LORazepam 2 MG/ML VIAL IVP PRN ×3 (08:25→20:10)
[2019-10-25] MEDS ORDERED: *HR* HYDROcodone/Acet 7.5/325 mg TABLET PO PRN (10:44)
[2019-10-25] MEDS ORDERED: *HR* HYDROcodone/Acet 10/325 mg TABLET PO PRN (10:44)
[2019-10-25 11:08] LABS: Immunoglobulin G Subclass 4 24 mg/dL (1-123)
[2019-10-25] MEDS: Morphine Sulfate 2 MG/ML SYRINGE IVP PRN ×2 (11:50→17:09)
[2019-10-25] MEDS: Ondansetron 4 MG/2 ML VIAL IVP PRN (13:33)
[2019-10-25 17:45] LABS: ANA IgG by ELISA NONE DETECTED (None Detected)
[2019-10-26] MEDS: Ringers Solution, Lactated 1,000 ML IVC SCH ×2 (01:36→07:17)
[2019-10-26 05:32] LABS: Hematocrit 35.7 % (35.3-44.9); Hemoglobin 11.9 g/dL (11.5-15.4); Mean Corpuscular HGB Conc 33.3 g/dL (31.6-35.5); Mean Corpuscular Hemoglobin 30.3 pg (28.0-33.3); Mean Corpuscular Volume 90.8 fL (83.0-100.0); Platelet Count 155 K/mcL (140-400); Red Blood Count 3.93 M/mcL (3.82-4.97); Red Cell Distribution Width 13.3 % (11.5-14.5); White Blood Count 5.4 K/mcL (4.3-11.1)
[2019-10-26 05:49] LABS: Alanine Aminotransferase 120 Units/L (7-52); Albumin 3.4 g/dL (3.5-5.7); Albumin/Globulin Ratio 1.4 (1.1-2.2); Alkaline Phosphatase 212 Units/L (34-104); Aspartate Amino Transferase 53 Units/L (13-39); BUN/Creatinine Ratio 8 (6-26); Bilirubin,Total 0.4 mg/dL (0.3-1.0); Blood Urea Nitrogen 4 mg/dL (6-20); Calcium 8.6 mg/dL (8.6-10.3); Carbon Dioxide 29 mEq/L (23-29); Chloride 106 mEq/L (98-107); Globulin 2.4 g/dL (2.4-3.5); Glucose 81 mg/dL (70-105); Osmolality,Calculated 288 (280-300); Potassium 3.4 mEq/L (3.5-5.1); Sodium 141 mEq/L (136-145); Total Protein 5.8 g/dL (6.4-8.9); eGFR For African Americans > 60 (> 60); eGFR For Non-African Americans > 60 (> 60)
[2019-10-26 05:59] VITALS: BP 123/76
[2019-10-26] MEDS ORDERED: Ringers Solution, Lactated 1,000 ML IVC SCH (07:33)
[2019-10-26] MEDS: Aspirin Enteric Coated 81 MG Tablet PO SCH (09:31)
[2019-10-26] MEDS: *HR* Rivaroxaban 10 MG TABLET PO SCH (09:32)
[2019-10-26] MEDS: Ondansetron 4 MG/2 ML VIAL IVP PRN (09:46)
[2019-10-26] MEDS: *HR* LORazepam 2 MG/ML VIAL IVP PRN (11:37)
== END 2019-10-26 12:20 | disposition home or self-care (01) | DRG 440 ==
LOC: 3ANU 15:22 → EMEROOARM 15:22 → SUATTDRO 18:00 → 3ANU 18:19
PROVIDERS: ADMIT Internal Medicine; ATTEND Internal Medicine

== ENCOUNTER 2020-03-22 14:51 | Observation (INO) ==
[2020-03-22 16:10] LABS: Basophils % 0.4 %; Eosinophils # 0.2 K/mcL (0.0-0.6); Eosinophils % 1.5 %; Hematocrit 44.9 % (35.3-44.9); Hemoglobin 14.6 g/dL (11.5-15.4); Immature Granulocytes % 0.4 % (0-4); Lymphocytes # 3.6 K/mcL (0.6-4.6); Lymphocytes % 34.4 %; Mean Corpuscular HGB Conc 32.5 g/dL (31.6-35.5); Mean Corpuscular Hemoglobin 29.6 pg (28.0-33.3); Mean Corpuscular Volume 91.1 fL (83.0-100.0); Mean Platelet Volume 9.4 fL (9.4-12.4); Monocytes # 0.5 K/mcL (0.0-1.3); Platelet Count 216 K/mcL (140-400); Red Blood Count 4.93 M/mcL (3.82-4.97); Red Cell Distribution Width 14.3 % (11.5-14.5); Segmented Neutrophils % 58.3 %; White Blood Count 10.3 K/mcL (4.3-11.1)
[2020-03-22 16:26] LABS: Alanine Aminotransferase 128 Units/L (7-52); Albumin 4.2 g/dL (3.5-5.7); Albumin/Globulin Ratio 1.3 (1.1-2.2); Alkaline Phosphatase 106 Units/L (34-104); Amylase 65 Units/L (29-103); Aspartate Amino Transferase 24 Units/L (13-39); BUN/Creatinine Ratio 20 (6-26); Bilirubin,Direct 0.1 mg/dL (0.0-0.2); Bilirubin,Indirect 0.1 mg/dL (0.0-1.0); Bilirubin,Total 0.2 mg/dL (0.3-1.0); Blood Urea Nitrogen 12 mg/dL (6-20); Calcium 9.2 mg/dL (8.6-10.3); Carbon Dioxide 22 mEq/L (23-29); Chloride 106 mEq/L (98-107); Globulin 3.2 g/dL (2.4-3.5); Glucose 146 mg/dL (70-105); Lipase 96 Units/L (11-82); Osmolality,Calculated 288 (280-300); Potassium 3.6 mEq/L (3.5-5.1); Sodium 138 mEq/L (136-145); Total Protein 7.4 g/dL (6.4-8.9); eGFR For African Americans > 60 (> 60); eGFR For Non-African Americans > 60 (> 60)
[2020-03-22 16:44] LABS: Clarity,Urine Clear (Clear); Color,Urine Yellow (Yellow); Glucose,Urine (UA) Normal (Normal)
[2020-03-22 16:45] LABS: Bilirubin,Urine Negative (Negative); Blood,Urine Trace (Negative); Ketones,Urine Negative (Negative); Leukocyte Esterase,Urine Negative (Negative); Nitrite,Urine Negative (Negative); Protein,Urine Negative (Neg-Trace); Specific Gravity,Urine 1.007 (1.010-1.025); Urobilinogen,Urine Normal (Normal)
[2020-03-22] MEDS ORDERED: Isovue-370 500 ML BOTTLE IVP ONE (17:05)
[2020-03-22 17:06] LABS: Squamous Epithelial Cell,Urine Few per lpf (None-Few)
[2020-03-22] MEDS ORDERED: Ringers Solution, Lactated 1,000 ML IVC ONE (17:06)
[2020-03-22] MEDS ORDERED: *HR* OxyCODONE Immed Rel 5 MG TABLET PO STA (17:11)
[2020-03-22] MEDS ORDERED: *HR* HYDROmorphone (PF) 1 MG/ML SYRINGE IVP STA (18:55)
[2020-03-22] MEDS ORDERED: *HR* Promethazine 25 MG/ML VIAL IVP STA (18:56)
[2020-03-22] MEDS ORDERED: Naloxone 0.4 MG/ML INJ IVP PRN ×2 (23:22→23:25)
[2020-03-23] MEDS: Nicotine 14 MG PATCH.TD24 TD SCH ×2 (00:28→08:16)
[2020-03-23] MEDS: Ondansetron ODT 4 MG TAB.RAPDIS SL PRN ×2 (00:28→08:15)
[2020-03-23] MEDS: Ringers Solution, Lactated 1,000 ML IVC SCH ×3 (00:37→19:38)
[2020-03-23 02:53] LABS: Basophils % 0.3 %; Eosinophils # 0.1 K/mcL (0.0-0.6); Eosinophils % 0.9 %; Immature Granulocytes % 0.4 % (0-4); Lymphocytes # 3.5 K/mcL (0.6-4.6); Lymphocytes % 33.7 %; Mean Corpuscular HGB Conc 31.7 g/dL (31.6-35.5); Mean Corpuscular Hemoglobin 29.5 pg (28.0-33.3); Mean Platelet Volume 9.2 fL (9.4-12.4); Monocytes # 0.7 K/mcL (0.0-1.3); Platelet Count 182 K/mcL (140-400); Red Blood Count 4.41 M/mcL (3.82-4.97); Red Cell Distribution Width 14.2 % (11.5-14.5); Segmented Neutrophils % 57.7 %; White Blood Count 10.3 K/mcL (4.3-11.1)
[2020-03-23 03:05] LABS: Prothrombin Time 11.8 Seconds (9.4-12.1)
[2020-03-23 03:12] LABS: Alanine Aminotransferase 167 Units/L (7-52); Albumin 3.8 g/dL (3.5-5.7); Albumin/Globulin Ratio 1.5 (1.1-2.2); Alkaline Phosphatase 125 Units/L (34-104); Aspartate Amino Transferase 124 Units/L (13-39); BUN/Creatinine Ratio 19 (6-26); Bilirubin,Total 0.5 mg/dL (0.3-1.0); Blood Urea Nitrogen 10 mg/dL (6-20); Calcium 8.8 mg/dL (8.6-10.3); Carbon Dioxide 26 mEq/L (23-29); Chloride 107 mEq/L (98-107); Chol/HDL Ratio 4.1 (0-4.9); Cholesterol 177 mg/dL (< 200); Globulin 2.6 g/dL (2.4-3.5); Glucose 90 mg/dL (70-105); HDL Cholesterol 43 mg/dL (40-59); LDL Cholesterol,Calculated 110 mg/dL (0-99); Magnesium 1.8 mg/dL (1.6-2.6); Osmolality,Calculated 285 (280-300); Phosphorous 3.7 mg/dL (2.7-4.5); Potassium 3.8 mEq/L (3.5-5.1); Sodium 138 mEq/L (136-145); Total Protein 6.4 g/dL (6.4-8.9); Triglycerides 121 mg/dL (< 150); eGFR For African Americans > 60 (> 60); eGFR For Non-African Americans > 60 (> 60)
[2020-03-23] MEDS: *HR* Promethazine 25 MG/ML VIAL IVP PRN ×3 (05:13→20:05)
[2020-03-23] MEDS ORDERED: Ketorolac 15 MG/ML VIAL IVP ONE (14:12)
[2020-03-23] MEDS: 0.9 % Sodium Chloride 1,000 ML IVC SCH ×2 (14:31→21:31)
[2020-03-23 15:24] LABS: Hepatitis B Surface Antigen Nonreactive (Nonreactive)
[2020-03-23 15:53] LABS: Hepatitis B Core IgM Nonreactive (Nonreactive); Hepatitis C Virus Antibody Nonreactive (Nonreactive)
[2020-03-23 15:55] LABS: Hepatitis A Antibody IgM Nonreactive (Nonreactive)
[2020-03-23] MEDS: *HR* Rivaroxaban 10 MG TABLET PO SCH (16:53)
[2020-03-23] MEDS ORDERED: Prochlorperazine 10 MG/2 ML VIAL IVP PRN (19:41)
[2020-03-23] MEDS ORDERED: *HR* HYDROmorphone 2 MG TABLET PO ONE (20:40)
[2020-03-23] MEDS ORDERED: Pantoprazole 40 MG VIAL IVP ONE (20:46)
[2020-03-23] MEDS: *HR* LORazepam 1 MG TABLET PO PRN (23:56)
[2020-03-24] MEDS: 0.9 % Sodium Chloride 1,000 ML IVC SCH ×5 (02:53→22:33)
[2020-03-24 03:17] LABS: Alanine Aminotransferase 637 Units/L (7-52); Albumin 3.5 g/dL (3.5-5.7); Albumin/Globulin Ratio 1.5 (1.1-2.2); Alkaline Phosphatase 242 Units/L (34-104); Aspartate Amino Transferase 475 Units/L (13-39); BUN/Creatinine Ratio 16 (6-26); Bilirubin,Total 1.1 mg/dL (0.3-1.0); Blood Urea Nitrogen 8 mg/dL (6-20); Calcium 8.1 mg/dL (8.6-10.3); Carbon Dioxide 23 mEq/L (23-29); Chloride 109 mEq/L (98-107); Globulin 2.4 g/dL (2.4-3.5); Glucose 88 mg/dL (70-105); Lipase 262 Units/L (11-82); Magnesium 1.6 mg/dL (1.6-2.6); Osmolality,Calculated 284 (280-300); Phosphorous 2.6 mg/dL (2.7-4.5); Potassium 3.6 mEq/L (3.5-5.1); Sodium 138 mEq/L (136-145); Total Protein 5.9 g/dL (6.4-8.9); eGFR For African Americans > 60 (> 60); eGFR For Non-African Americans > 60 (> 60)
[2020-03-24] MEDS: *HR* Promethazine 25 MG/ML VIAL IVP PRN (09:13)
[2020-03-24] MEDS: Nicotine 14 MG PATCH.TD24 TD SCH (09:13)
[2020-03-24] MEDS: Morphine Sulfate Immed Rel 15 MG TABLET PO PRN ×2 (14:25→22:29)
[2020-03-24] MEDS: *HR* Rivaroxaban 10 MG TABLET PO SCH (18:28)
[2020-03-25] MEDS: *HR* LORazepam 1 MG TABLET PO PRN (00:09)
[2020-03-25] MEDS: 0.9 % Sodium Chloride 1,000 ML IVC SCH (05:28)
[2020-03-25 05:46] LABS: Alanine Aminotransferase 338 Units/L (7-52); Albumin 3.2 g/dL (3.5-5.7); Albumin/Globulin Ratio 1.4 (1.1-2.2); Alkaline Phosphatase 190 Units/L (34-104); Aspartate Amino Transferase 108 Units/L (13-39); BUN/Creatinine Ratio 14 (6-26); Bilirubin,Total 0.6 mg/dL (0.3-1.0); Blood Urea Nitrogen 6 mg/dL (6-20); Calcium 8.2 mg/dL (8.6-10.3); Carbon Dioxide 23 mEq/L (23-29); Chloride 112 mEq/L (98-107); Globulin 2.3 g/dL (2.4-3.5); Glucose 78 mg/dL (70-105); Lipase 38 Units/L (11-82); Magnesium 1.6 mg/dL (1.6-2.6); Osmolality,Calculated 286 (280-300); Phosphorous 2.5 mg/dL (2.7-4.5); Potassium 3.3 mEq/L (3.5-5.1); Sodium 140 mEq/L (136-145); Total Protein 5.5 g/dL (6.4-8.9); eGFR For African Americans > 60 (> 60); eGFR For Non-African Americans > 60 (> 60)
[2020-03-25] MEDS: Nicotine 14 MG PATCH.TD24 TD SCH (07:48)
[2020-03-25] MEDS: Morphine Sulfate Immed Rel 15 MG TABLET PO PRN (08:03)
[2020-03-25 11:21] VITALS: BP 148/81
== END 2020-03-25 12:02 | disposition home or self-care (01) ==
LOC: 3BNU 14:51 → EMEROOARM 14:51 → SUATTDRO 19:33 → 3BNU 20:04
PROVIDERS: ADMIT Internal Medicine; ATTEND Internal Medicine